=== PATIENT | female | born 1940 | race Caucasian/White ===

== ENCOUNTER 2019-11-01 07:44 | Outpatient (CLI) | payer OTHER, MEDICAID, SELFPAY ==
--- NOTE | ~2019-11-01 | CT_ITS ---
EXAMINATION: CT abdomen pelvis wo/w con DATE: 11/01/2019 08:55 INDICATION: Gross hematuria TECHNIQUE: Computed tomography (CT) of the abdomen and pelvis was performed without intravenous contr ast. CT of the abdomen and pelvis was then performed with a total of 130 mL Omnipaque 350 intravenous contrast using a double-bolus technique for simultaneous opacification of the renal parenchyma and r enal collecting system. The dose-length product (DLP) was 3080.75 mGy-cm. Automated exposure control and iterative reconstruction technique were employed. COMPARISON: None FINDINGS: The lung bases are clear. The heart size is normal. Calcified coronary artery atheroscleros is is noted. Punctate calcifications in an otherwise normal spleen likely represent healed granulomat ous disease. The gallbladder is surgically absent. There is a 1.4 x 0.7 cm hypoattenuating lesion of the right hepatic lobe contiguous with a cleft that extends to the liver capsule. The pancreas and ad renal glands are normal. There are no stones in the kidneys, ureters, or bladder. There is an 11 mm c yst of the left kidney. The right kidney is unremarkable. A 2.9 x 2.5 cm soft tissue mass is present in the left posterolateral bladder. No pathologically enlarged abdominal or pelvic lymph nodes are id entified. There is no free intraperitoneal gas or evidence of bowel obstruction. Colonic diverticulos is is present without evidence of diverticulitis. There is severe lumbar spondylosis. There is calcified atherosclerosis of the aorta and many of the other arteries. IMPRESSION: 1. 2.9 cm mass of the left posterolateral bladder wall, consistent with urothelial carcinoma. Direct visualization is recommended. 2. Indeterminate lesion of the right hepatic lobe. Further evaluation with MRI without and with contr ast is recommended. Reviewed, dictated and finalized at location A. IMPRESSION: 1. 2.9 cm mass of the left posterolateral bladder wall, consistent with urothel ial carcinoma. Direct visualization is recommended. 2. Indeterminate lesion of the right hepatic lobe. Further evaluation with MRI without and with contrast is recommended.
--- NOTE | ~2019-11-01 | XR_ITS ---
EXAMINATION: XR abdomen w oblique INDICATION: Gross hematuria TECHNIQUE: AP and bilateral oblique views of the abdomen are obtained COMPARISON: CT from today FINDINGS: Contrast from earlier CT partially opacifies the urinary tract. There is a filling defect i n the left bladder, consistent with the bladder mass identified on CT. There is no hydronephrosis or hydroureter. The bowel gas pattern is normal. Cholecystectomy clips are noted. There is mild hip oste oarthritis. Severe lumbar spondylosis is noted. IMPRESSION: 1. Filling defect of the left bladder, consistent with bladder mass and suspicious for urothelial car cinoma. Reviewed, dictated and finalized at location A. IMPRESSION: 1. Filling defect of the left bladder, consistent with bladder mass and suspici ous for urothelial carcinoma.
[2019-11-01 08:33] LABS: Estimated Glomerular Filt Rate 53
== END 2019-11-01 07:45 | disposition home or self-care (01) ==
PROVIDERS: Visit Provider Urology
DX: R31.0 Gross hematuria (principal); R93.41 Abnormal radiologic findings on diagnostic imaging of renal pelvis, ureter, or bladder; K76.9 Liver disease, unspecified
CPT/HCPCS: 36415; 74021; 74178; Q9967

== ENCOUNTER 2019-11-06 12:54 | Outpatient (CLI) | payer OTHER, SELFPAY ==
--- NOTE | 2019-11-06 12:55 | ECG_ITS ---
Measurements Intervals [place] Rate: 65 P: 71 GA: 192 QRS: -13 QRSD: 103 T: 69 QT: 423 QTc: 441 Interpretive Statements SINUS RHYTHM POOR R WAVE PROGRESSION, ANTERIOR LEADS BORDERLINE ST-T WAVE ABNORMALITY- HIGH LATERAL LEADS BORDERLINE ECG Electronically Signed On 11-06-2019 13:47:32 CDT by Cheikh Elmore D.O.
[2019-11-06 13:18] LABS: Basophils Percent Auto 0.2 % (0.2-1.2); Eosinophils Absolute Auto 0.2 K/mm3 (0-0.3); Eosinophils Percent Auto 1.9 % (0-4.4); Hematocrit 41.7 % (37.0-47.0); Hemoglobin 13.5 g/dL (12.0-15.0); Immature Granulocyte Absolute 0.07 K/mm3 (0.00-0.031); Immature Granulocyte Percent A 0.5 % (0-0.5); Lymphocytes Absolute Auto 2.91 K/mm3 (0.9-3.2); Lymphocytes Percent Auto 22.7 % (18.3-44.2); Mean Corpuscular HGB Conc 32.4 g/dl (32-36); Mean Corpuscular Hemoglobin 28.9 pg (26-34); Mean Corpuscular Volume 89.3 fl (80-100); Mean Platelet Volume 11.4 fl (7.4-10.4); Monocytes Absolute Auto 0.9 K/mm3 (0.1-0.6); Monocytes Percent Auto 6.6 % (2.6-8.5); Neutrophils Absolute Auto 8.7 K/mm3 (1.3-6.7); Neutrophils Percent Auto 68.1 % (45.5-73.1); Platelet Count Result 222 k/mm3 (150-375); Red Blood Count 4.67 M/mm3 (4.2-5.4); Red Cell Distribution Width 13.2 % (11.5-14.5); White Blood Count 12.8 K/mm3 (4.5-10.0)
[2019-11-06 13:27] LABS: INR 0.9; Prothrombin Time 12.3 Seconds (11.1-14.7)
[2019-11-06 13:28] LABS: Partial Thromboplastin Time 28.3 SECONDS (22.3-36.8)
[2019-11-06 13:31] LABS: Anion Gap 9 mmol/L (8-16); Blood Urea Nitrogen 21 mg/dL (7-17); Calcium 9.3 mg/dL (8.4-10.2); Carbon Dioxide 32 mmol/L (22-30); Chloride 100 mmol/L (98-107); Estimated Glomerular Filt Rate 48; Glucose 241 mg/dL (65-105); Potassium 4.1 mmol/L (3.4-5.0); Sodium 141 mmol/L (137-145)
== END 2019-11-06 12:55 | disposition home or self-care (01) ==
PROVIDERS: PCP Internal Medicine; Visit Provider Urology
DX: Z01.818 Encounter for other preprocedural examination (principal); D49.4 Neoplasm of unspecified behavior of bladder; I10 Essential (primary) hypertension
CPT/HCPCS: 36415; 80048; 85025; 85610; 85730; 87086; 87088; 93005

== ENCOUNTER 2019-11-11 01:50 | Outpatient (CLI) | payer OTHER, SELFPAY ==
[2019-11-11 19:29] LABS: SARS-CoV-2 RNA PCR Negative
== END 2019-11-11 01:51 | disposition home or self-care (01) ==
LOC: ANHCOVIDDT 01:50
PROVIDERS: Visit Provider Urology
DX: Z01.812 Encounter for preprocedural laboratory examination (principal); Z11.59 Encounter for screening for other viral diseases
CPT/HCPCS: 87635; C9803; U0003

== ENCOUNTER 2019-11-14 01:08 | Day surgery (SDC) | payer OTHER, MEDICAID, SELFPAY ==
[2019-11-03 11:02] VITALS: BMI 51.5
[2019-11-14] VITALS (8 sets, daily range): BP systolic 134–159; BP diastolic 53–73; PULSE 65–69; RESP 10–20; TEMP 36.6–36.8; O2SAT 94–99
[2019-11-14] MEDS: LACTATED RINGERS 1,000 ML 30 ML IV CONT (12:30)
--- NOTE | 2019-11-14 12:37 | WPDANESEPPF ---
Anes - Initial Pre Proc Eval Procedure: Operation Date: 11/14/19 13:00 Proposed Procedures p Transurethral Resection Bladder Tumor - Nahum Pozo MD Date/Time: 11/14/19 12:37 Surgeon: Nahum Pozo MD Pre Op Diagnosis: Bladder Tumor Patient Data Age: 79 Gender: F Height: 5 ft 3 in Weight: 131.95 kg Allergies Allergy/AdvReac Type Severity Reaction Status Date / Time codeine Allergy Nausea and Verified 11/03/19 10:52 Vomiting Home Medications Medication Instructions Recorded Confirmed Type amlodipine 2.5 mg PO QAM 11/03/19 11/03/19 History aspirin 81 mg PO QAM 11/03/19 11/03/19 History atorvastatin 80 mg PO HS 11/03/19 11/03/19 History budesonide-formoterol [Symbicort] 2 puff INHALATION PRN PRN 11/03/19 11/03/19 History clopidogrel 75 mg PO HS 11/03/19 11/03/19 History furosemide 40 mg PO QAM 11/03/19 11/03/19 History insulin lispro protamin-lispro 75 ml SUBCUT QPM 11/03/19 11/03/19 History insulin lispro protamin-lispro 65 ml SUBCUT QAM 11/03/19 11/03/19 History [Humalog Mix 75-25 KwikPen] lisinopril 10 mg PO QAM 11/03/19 11/03/19 History metoprolol tartrate 100 mg PO QAM 11/03/19 11/03/19 History semaglutide [Ozempic] 0.25 mg SUBCUT WEEKLY 11/03/19 11/03/19 History sertraline 100 mg PO QAM 11/03/19 11/03/19 History Patient hx anesthesia problems: none Family hx anesthesia problems: none PMFSH Past Medical History Medical History Anxiety CAD (coronary artery disease) COPD (chronic obstructive pulmonary disease) Diabetes Hyperlipidemia Hypertension NIDA (obstructive sleep apnea) Super obesity Surgical History Surgical History Stented coronary artery Social History Social History Smoking packs per day: 1 Smoking cigarettes per day: 20.0 Years smoked: 20 Smoking pack-years: 20.00 Smoking status: Former smoker Tobacco type: cigarettes Second hand tobacco smoke exposure: No Smoking end date: 03/15/83 Living arrangements: with family Spiritual care concerns: No Anes - Eval Final PreProcedure Day of Procedure 11/14/19 12:37 Patient weight: super morbidly obese Heart: regular rate and rhythm Lungs: decreased breath sounds Airway: Mallampati scale class II Neurological: other (alert) Last oral intake: >/= 8 hours ASA classification: III Emergent: no Anesthetic plan: proceed Anesthesia type and monitoring: general LMA and standard monitoring Informed Consent: The patient's anesthetic plan and its attendant risks and benefits were discussed with the patient/family/POA. Questions were solicited and answers provided to the satisfaction of the patient/family/POA.
[2019-11-14 12:40] LABS: Glucose Point of Care 85 (65-105)
--- NOTE | 2019-11-14 14:19 | WPDHPUPDATE1 ---
History and Physical Update Update Date/Time: 11/14/19 14:19 History and Physical has been reviewed, including an updated exam of the patient. There are NO changes in the patient's condition. Risks, benefits, and alternatives have been discussed and questions answered. Patient agrees to proceed with procedure.
[2019-11-14] MEDS: ceFAZolin 3 GM/D5W 100 ML 100 ML IVPB (14:39)
[2019-11-14] MEDS: LIDOCAINE HCL 2% GEL UROJET 10 ML PKG MUCOUS MEM (14:54)
--- NOTE | 2019-11-14 15:34 | PM.PROC ---
Procedure Note - Detailed Date of procedure: 11/14/19 Pre-op diagnosis: Bladder Tumor Post-op diagnosis: same (Large bladder tumor 5 cm area) Procedure performed: transurethral resection of bladder tumor Description of procedure: patient is taken to the operative suite cup was identified. Once anesthesia was obtained she was placed in the dorsal lithotomy position and prepped and draped usual sterile fashion. A 24 Uzbek resectoscope sheath was inserted the bladder. She has a fairly large tumor close to 5 cm on the floor just lateral to the left ureteral orifice. We went ahead resected the tumor and then sent the bases a separate specimen. We fulgurated the base. There was good hemostasis. 2% viscous lidocaine was inserted into the urethra. An 18 Uzbek 3 was placed with continuous bladder irrigation. This will be weaned off in recovery room and she will be discharged home with Genao catheter and had that removed on Wednesday for urine is clear. Anesthesia: GLMA Surgeon: Nahum Pozo MD Drains: Yes Packing: No Pathology: yes Complications: No immediate complications Condition: stable Disposition: PACU
[2019-11-14 15:45] LABS: Glucose Point of Care 101 (65-105)
== END 2019-11-14 17:40 | disposition home or self-care (01) ==
PROVIDERS: PCP Internal Medicine; Visit Provider Urology
PROC: 0TBB8ZZ Excision of Bladder, Via Natural or Artificial Opening Endoscopic (ICD-10-PCS; CPT 52240; principal; 2019-11-14 13:00)
DX: C67.9 Malignant neoplasm of bladder, unspecified (principal); E11.9 Type 2 diabetes mellitus without complications; Z79.4 Long term (current) use of insulin; I10 Essential (primary) hypertension; J44.9 Chronic obstructive pulmonary disease, unspecified; E78.5 Hyperlipidemia, unspecified; G47.33 Obstructive sleep apnea (adult) (pediatric); E66.01 Morbid (severe) obesity due to excess calories; Z68.43 Body mass index [BMI] 50.0-59.9, adult; I25.10 Atherosclerotic heart disease of native coronary artery without angina pectoris; Z95.5 Presence of coronary angioplasty implant and graft; F41.9 Anxiety disorder, unspecified; F17.210 Nicotine dependence, cigarettes, uncomplicated; Z79.82 Long term (current) use of aspirin; Z79.02 Long term (current) use of antithrombotics/antiplatelets; Z79.899 Other long term (current) drug therapy
CPT/HCPCS: 52240; 88305; A9270; J0360; J0690; J2250; J2370; J2405; J2704; J3010; J7120

== ENCOUNTER 2022-09-14 12:07 | Inpatient (IN) | payer MEDICARE, MEDICAID, SELFPAY ==
[2022-09-14] VITALS (9 sets, daily range): BP systolic 149–168; BP diastolic 48–69; PULSE 68–81; RESP 13–26; TEMP 36.2–37.2; O2SAT 90–95; BMI 51.8
--- NOTE | ~2022-09-14 | US_ITS ---
US venous doppler [facility] DATE: 09/14/2022 19:36 INDICATION: Edema of the lower extremities TECHNIQUE: Real-time and color flow imaging and Doppler analysis of the veins of the lower extremitie s COMPARISON: None FINDINGS: The greater saphenous veins are patent. There is spontaneous and phasic flow and normal aug mentation and color flow signal and normal compression of the deep veins of both lower extremities. IMPRESSION: No evidence of deep venous thrombosis of the lower extremities Reviewed, dictated and finalized at Location A. Reviewed, dictated and finalized at location A.
--- NOTE | ~2022-09-14 | XR_ITS ---
EXAMINATION: XR chest 1V portable DATE: 09/14/2022 12:38 INDICATION: Shortness of breath TECHNIQUE: frontal view of the chest was obtained. COMPARISON: None FINDINGS: Pulmonary vascular congestion. Mild opacities in bilateral lower lung zones, left greater than right. Blunting at costophrenic angles consistent with small bilateral pleural effusions. No pneumothorax. The cardiomediastinal silhouette is within normal limits for AP technique. Mild lower thoracic dextro curvature. IMPRESSION: 1. Small bilateral pleural effusions with mild opacities in bilateral lower lung zones which could re present mild pulmonary edema, atelectasis or pneumonia. Reviewed, dictated and finalized at location B. IMPRESSION: 1. Small bilateral pleural effusions with mild opacities in bilateral lower tiffanie g zones which could represent mild pulmonary edema, atelectasis or pneumonia.
--- NOTE | 2022-09-14 12:15 | ECG_ITS ---
Measurements Intervals [place] Rate: 73 P: 109 WV: 158 QRS: 17 QRSD: 94 T: 89 QT: 420 QTc: 466 Interpretive Statements SINUS RHYTHM WITH SINUS ARRHYTHMIA ATRIAL PREMATURE COMPLEXES DELAYED PRECORDIAL R/S TRANSITION LOW QRS VOLTAGE IN PRECORDIAL LEADS BORDERLINE T WAVE ABNORMALITY- HIGH LATERAL LEADS BASELINE ARTIFACT- I, II, III, AVR, AVL, AVF, V1-V2 BORDERLINE ECG COMPARED TO ECG 11/06/2019 13:30:35 SINUS ARRHYTHMIA NOW PRESENT Electronically Signed On 09-14-2022 13:57:35 CDT by Cheikh Elmore D.O.
[2022-09-14 12:29] LABS: Basophils Percent Auto 0.4 % (0.2-1.2); Eosinophils Absolute Auto 0.2 K/mm3 (0-0.3); Eosinophils Percent Auto 1.9 % (0-4.4); Hematocrit 29.4 % (37.0-47.0); Hemoglobin 9.8 g/dL (12.0-15.0); Immature Granulocyte Absolute 0.06 K/mm3 (0.00-0.031); Immature Granulocyte Percent A 0.5 % (0-0.5); Lymphocytes Absolute Auto 1.33 K/mm3 (0.9-3.2); Lymphocytes Percent Auto 11.8 % (18.3-44.2); Mean Corpuscular HGB Conc 33.3 g/dl (32-36); Mean Corpuscular Hemoglobin 29.2 pg (26-34); Mean Corpuscular Volume 87.5 fl (80-100); Mean Platelet Volume 11.2 fl (7.4-10.4); Monocytes Absolute Auto 0.7 K/mm3 (0.1-0.6); Monocytes Percent Auto 6.4 % (2.6-8.5); Neutrophils Absolute Auto 8.9 K/mm3 (1.3-6.7); Platelet Count Result 188 k/mm3 (150-375); Red Blood Count 3.36 M/mm3 (4.2-5.4); Red Cell Distribution Width 14.2 % (11.5-14.5); White Blood Count 11.3 K/mm3 (4.5-10.0)
[2022-09-14 12:44] LABS: Alanine Aminotransferase 26 U/L (6-35); Albumin Level 3.8 g/dL (3.5-5.1); Alkaline Phosphatase 197 U/L (38-126); Anion Gap 3 mmol/L (8-16); Aspartate Amino Transferase 26 U/L (14-36); Bilirubin,Total 1.2 mg/dL (0.2-1.3); Blood Urea Nitrogen 18 mg/dL (7-17); Calcium 8.5 mg/dL (8.4-10.2); Carbon Dioxide 34 mmol/L (22-30); Chloride 102 mmol/L (98-107); Estimated CRCL calculation 63 ml/min; Estimated Glomerular Filt Rate > 60; Glucose 192 mg/dL (65-110); Potassium 3.5 mmol/L (3.4-5.0); Sodium 139 mmol/L (137-145)
[2022-09-14 12:46] LABS: Prothrombin Time 13.4 Seconds (11.1-14.7)
[2022-09-14 12:47] LABS: Partial Thromboplastin Time 32.3 SECONDS (22.3-36.8)
[2022-09-14 12:54] LABS: NT Pro B Type Natriuretic Pept 960 pg/mL (19.9-100); Troponin I < 0.012 ng/mL (0.000-0.034)
--- NOTE | 2022-09-14 13:22 | ED.EXTPRO ---
HPI - Extremity Problem General Chief complaint: Extremity Problem,Nontraumatic Stated complaint: BLE swelling and dyspnea Time Seen by Provider: 09/14/22 12:37 History of Present Illness HPI Narrative: Patient is an 82-year-old female with a history of diabetes, hypertension, CHF presenting with shortness of breath and leg swelling. Patient is a resident at a nursing facility. She states that she is supposed to take Lasix every day but they have only been giving it to her every other day. States that she has had increasingly swollen legs and worsening shortness of breath. She reports worsening orthopnea. States she was unable to sleep last night due to the orthopnea. She had some palpitations yesterday but no chest pain or lightheadedness. No fevers, cough, numbness or weakness, abdominal pain, vomiting, diarrhea, dysuria. Related Data Home Medications Medication Instructions Recorded Confirmed amlodipine 5 mg tablet 10 mg PO QAM 11/03/19 09/14/22 aspirin 81 mg tablet,delayed 81 mg PO QAM 11/03/19 09/14/22 release atorvastatin 80 mg tablet 80 mg PO HS 11/03/19 09/14/22 budesonide-formoterol HFA 160 2 puff inhalation PRN PRN 11/03/19 09/14/22 mcg-4.5 mcg/actuation aerosol Shortness Of Breath inhaler (Symbicort) clopidogrel 75 mg tablet 75 mg PO HS 11/03/19 09/14/22 furosemide 20 mg tablet 20 mg PO QAM 11/03/19 09/14/22 sertraline 100 mg tablet 100 mg PO QAM 11/03/19 09/14/22 albuterol sulfate 90 mcg/actuation 90 mcg inhalation Q4H PRN 09/14/22 09/14/22 aerosol inhaler Shortness Of Breath Or Wheezing amlodipine 10 mg tablet 10 mg PO DAILY 09/14/22 09/14/22 bisacodyl 5 mg tablet,delayed 10 mg PO DAILY PRN Constipation 09/14/22 09/14/22 release (Dulcolax (bisacodyl)) budesonide-formoterol HFA 160 2 puff inhalation BID 09/14/22 09/14/22 mcg-4.5 mcg/actuation aerosol inhaler carvedilol 6.25 mg tablet 6.25 mg PO BID 09/14/22 09/14/22 ezetimibe 10 mg tablet 10 mg DAILY 09/14/22 09/14/22 fluticasone propionate 50 50 mcg intranasal DAILY 09/14/22 09/14/22 mcg/actuation nasal spray,suspension insulin aspart U-100 100 unit/mL 12 unit subcut TID 09/14/22 09/14/22 (3 mL) subcutaneous pen (Novolog FlexPen U-100 Insulin aspart) insulin glargine-yfgn 100 unit/mL 30 unit subcut HS 09/14/22 09/14/22 subcutaneous solution isosorbide mononitrate 30 mg 30 mg PO DAILY 09/14/22 09/14/22 tablet,extended release 24 hr lidocaine 5 % topical patch 1 patch transdermal Q12H 09/14/22 09/14/22 loratadine 10 mg tablet 10 mg PO DAILY PRN Allergy Symptoms 09/14/22 09/14/22 meclizine 12.5 mg tablet 12.5 mg PO TID 09/14/22 09/14/22 methocarbamol 500 mg tablet 500 mg PO QID PRN Muscle Spasm 09/14/22 09/14/22 ondansetron 4 mg disintegrating 4 mg PO Q8H PRN Nausea 09/14/22 09/14/22 tablet oxybutynin chloride 5 mg tablet 5 mg PO DAILY 09/14/22 09/14/22 pantoprazole 40 mg tablet,delayed 40 mg PO BID 09/14/22 09/14/22 release tramadol 50 mg tablet 50 mg PO DAILY PRN Pain 09/14/22 09/14/22 Allergies Allergy/AdvReac Type Severity Reaction Status Date / Time codeine Allergy Nausea and Verified 09/14/22 12:15 Vomiting semaglutide [From Ozempic] Allergy Nausea and Verified 09/14/22 17:06 Vomiting gabapentin AdvReac Hallucinati Verified 09/14/22 17:06 ng Review of Systems Review of Systems: All systems reviewed & are unremarkable except as noted in HPI and below PMFSH Past Medical History Medical History (Updated 09/14/22 @ 21:38 by Orin Segura MD) Anxiety Arthritis Bladder cancer (11/2019) Status post TURBT with pathology showing superficial papillary urothelial carcinoma, noninvasive and low-grade. Chronic back pain Chronic obstructive pulmonary disease Coronary artery disease Degenerative disc disease Depression with anxiety Hyperlipidemia Hypertension Insulin dependent type 2 diabetes mellitus Obstructive sleep apnea Intolerant to PAP therapy. Spinal stenosis Super obesity Surgical
[2022-09-14] MEDS: FUROSEMIDE INJ 40 MG/4 ML VIAL IV PUSH (13:37)
--- NOTE | 2022-09-14 15:50 | PM.IMHP ---
H&P: HPI History of Present Illness Date/Time: 09/14/22 17:15 Chief Complaint: Shortness of breath and leg swelling. Narrative: This is a very pleasant 82-year-old female with congestive heart failure, coronary artery disease, hypertension, hyperlipidemia, untreated obstructive sleep apnea, insulin-dependent diabetes mellitus, morbid obesity, and chronic obstructive pulmonary disease who presented to the emergency department via EMS for evaluation of shortness of breath and leg swelling. The patient provides the following history. She has been [facility] for approximately 3 months time. They unfortunately do not offer special diets and that she has not been on a diabetic or heart healthy diet. She also realized recently that she has not been getting her Lasix on a daily basis and instead she has been getting every other day. Over the last several weeks she has noticed increasing lower extremity edema which is now opted abdomen, orthopnea, and increasing dyspnea on minimal exertion. She has increasing difficulty even transferring to her motorized scooter due to increasing weight and swelling. She denies fever, chills, sweats, chest pain, pleuritic pain, palpitations, racing heart, cough, nausea, vomiting, and sweats. Workup in the ED is consistent with volume overload and she is being admitted in this setting for diuresis. Review of Systems Review of Systems: Twelve systems were reviewed and are negative except for as per HPI. [facility] Past Medical History Medical History Anxiety Arthritis Bladder cancer (11/2019) Status post TURBT with pathology showing superficial papillary urothelial carcinoma, noninvasive and low-grade. Chronic back pain Chronic obstructive pulmonary disease Coronary artery disease Degenerative disc disease Depression with anxiety Hyperlipidemia Hypertension Insulin dependent type 2 diabetes mellitus Obstructive sleep apnea Intolerant to PAP therapy. Spinal stenosis Super obesity Surgical History Surgical History (Updated 09/14/22 @ 15:58 by Magaly Sandra PA-C) History of appendectomy History of bilateral cataract extraction History of bladder suspension procedure (11/2019) History of cholecystectomy History of coronary artery stent placement (09/2018) History of elbow surgery History of hemorrhoidectomy History of hysterectomy (1969) History of knee surgery History of transurethral resection of bladder tumor (TURBT) Family History Family History Mother Cerebrovascular accident Social History Social History (Updated 09/14/22 @ 15:59 by Magaly Sandra PA-C) Social History: Surrogate medical decision maker: Jocelin Cueto, daughter. Code status: Full code. Smoking packs per day: 1 Smoking cigarettes per day: 20.0 Years smoked: 20 Smoking pack-years: 20.00 Smoking status: Former smoker Tobacco type: cigarettes Second hand tobacco smoke exposure: No Smoking end date: 03/15/83 Alcohol intake: never Substance use: never Lack of Transportation: No Lack of Food: Never True Current Housing: I Have Housing Concerned About Future Housing: No Difficulty Paying Gas/Electric Bills: No Difficulty Paying for Meds: No Currently Unemployed: No Education: Don't Know Difficulty w/ Childcare or Family Care: No Additional living arrangements comments: [facility]. Spiritual care concerns: No Meds Home Medications and Allergies Home Medications Medication Instructions Recorded Confirmed Type amlodipine 5 mg tablet 10 mg PO QAM 11/03/19 09/14/22 History aspirin 81 mg tablet,delayed 81 mg PO QAM 11/03/19 09/14/22 History release atorvastatin 80 mg tablet 80 mg PO HS 11/03/19 09/14/22 History budesonide-formoterol HFA 160 2 puff inhalation PRN PRN 11/03/19 09/14/22 History mcg-4.5 mcg/actuation aerosol Short
[2022-09-14 16:38] LABS: Glucose Point of Care 177 mg/dl (65-105)
--- NOTE | 2022-09-14 16:45 | ADMGEN ---
This patient, Verna Baltazar, was admitted to 3 [facility] Surg Room 306-01. Patient/family oriented to hospital policies and general routines including ID bracelet, bed and alarms, visiting hours, pain management, procedures, bathroom and other care routines, personal items, smoking policy, room service/diet, and visiting hours. Information on how to activate the Rapid Response Team has been discussed. Patient/Family are encouraged to report perceived risks to care and to ask questions if they do not understand what they are told or what they should do. Report from Megha in ER.
[2022-09-14 16:58] LABS: Hemoglobin A1C 7.2 % (<5.7)
[2022-09-14 20:39] LABS: Glucose Point of Care 204 mg/dl (65-105)
[2022-09-14] MEDS: FUROSEMIDE INJ 40 MG/4 ML VIAL 20 MG IV PUSH (21:27)
[2022-09-14] MEDS: POTASSIUM CHLORIDE 20 MEQ ER TABLET PO (21:28)
[2022-09-14] MEDS: INSULIN ASPART (*BKC) 100 UNITS/ML SUB-Q (21:30)
[2022-09-15] VITALS (16 sets, daily range): BP systolic 129–152; BP diastolic 46–60; PULSE 66–74; RESP 12–24; TEMP 35.9–37.1; O2SAT 94–98
[2022-09-15 00:38] LABS: Glucose Point of Care 156 mg/dl (65-105)
[2022-09-15] MEDS: INSULIN GLARGINE (*BKC) 100 UNITS/ML 30 UNITS SUB-Q ×2 (00:39→20:50)
[2022-09-15 05:44] LABS: Glucose Point of Care 139 mg/dl (65-105)
[2022-09-15] MEDS: carvediloL 6.25 MG TABLET PO ×3 (05:46→20:35)
[2022-09-15] MEDS: CLOPIDOGREL BISULFATE 75 MG TABLET PO ×2 (05:46→20:37)
[2022-09-15 06:26] LABS: Hematocrit 28.1 % (37.0-47.0); Hemoglobin 9.1 g/dL (12.0-15.0); Mean Corpuscular HGB Conc 32.4 g/dl (32-36); Mean Corpuscular Hemoglobin 28.4 pg (26-34); Mean Corpuscular Volume 87.8 fl (80-100); Platelet Count Result 178 k/mm3 (150-375); Red Cell Distribution Width 13.9 % (11.5-14.5); White Blood Count 9.7 K/mm3 (4.5-10.0)
[2022-09-15 06:42] LABS: Anion Gap 5 mmol/L (8-16); Blood Urea Nitrogen 16 mg/dL (7-17); Calcium 8.3 mg/dL (8.4-10.2); Carbon Dioxide 37 mmol/L (22-30); Chloride 99 mmol/L (98-107); Estimated CRCL calculation 55 ml/min; Estimated Glomerular Filt Rate 60; Glucose 135 mg/dL (65-110); Magnesium 1.6 mg/dL (1.6-2.3); Potassium 3.1 mmol/L (3.4-5.0); Sodium 141 mmol/L (137-145)
[2022-09-15 07:15] LABS: Thyroid Stimulating Hormone Reflex 0.785 uIU/mL (0.465-4.68)
[2022-09-15] MEDS: FLUTICASONE/SALMETEROL 115-21 MCG INHALER 1 PUFF 2 PUFF INHALATION ×2 (08:00→20:59)
[2022-09-15] MEDS: INSULIN ASPART (*BKC) 100 UNITS/ML 12 UNITS SUB-Q ×2 (09:11→17:19)
[2022-09-15] MEDS: FUROSEMIDE INJ 40 MG/4 ML VIAL IV PUSH ×2 (09:12→17:07)
[2022-09-15] MEDS: FLUTICASONE PROPIONATE 0.05% NA SPR 16 GM BTL (*BKC) 2 SPRAY NASAL (09:12)
[2022-09-15] MEDS: ISOSORBIDE MONONITRATE 30 MG TAB.ER.24H PO (09:13)
[2022-09-15] MEDS: ASPIRIN 81 MG ENTERIC TABLET PO (09:13)
[2022-09-15] MEDS: SERTRALINE HCL 50 MG TABLET 100 MG PO (09:13)
[2022-09-15] MEDS: EZETIMIBE 10 MG TABLET BY MOUTH (09:13)
[2022-09-15] MEDS: oxyBUTYnin CHLORIDE 5 MG TABLET PO (09:13)
[2022-09-15] MEDS: PANTOPRAZOLE 40 MG TABLET PO ×2 (09:13→17:07)
[2022-09-15] MEDS: amLODIPine BESYLATE 5 MG TABLET 10 MG PO (09:14)
--- NOTE | 2022-09-15 09:23 | PM.IMPN ---
Progress Note: A&P Assessment and Plan (1) Acute on chronic congestive heart failure: Code(s): I50.9 - Heart failure, unspecified Status: Acute (2) Coronary artery disease: Code(s): I25.10 - Atherosclerotic heart disease of [place] coronary artery without angina pectoris Status: Acute (3) Insulin dependent type 2 diabetes mellitus: Code(s): E11.9 - Type 2 diabetes mellitus without complications; Z79.4 - longterm (current) use of insulin Status: Acute (4) Obstructive sleep apnea: Code(s): G47.33 - Obstructive sleep apnea (adult) (pediatric) Status: Acute (5) Hypertension: Code(s): I10 - Essential (primary) hypertension Status: Acute (6) Hyperlipidemia: Code(s): E78.5 - Hyperlipidemia, unspecified Status: Acute (7) Chronic obstructive pulmonary disease: Code(s): J44.9 - Chronic obstructive pulmonary disease, unspecified Status: Acute Plan The patient presented to the emergency department for evaluation of increasing lower extremity edema, shortness of breath with exertion, and orthopnea as per HPI. Labs, imaging, EKG, and all reports were personally reviewed. Chest x-ray shows small pleural effusions with mild pulmonary edema however proBNP is not drastically elevated at 960. She has significant lower extremity edema and she will be diuresed for presumed acute on chronic diastolic congestive heart failure. Continue furosemide 40 mg IV b.i.d. with close monitoring of volume status, renal function, and electrolytes. Lower extremity venous Doppler ultrasounds ordered to rule out DVT. Echocardiogram ordered as well; I do not see that she has had one in our system at least. She likely decompensated due to a combination of untreated sleep apnea, dietary indiscretion as she is not offered a special diet at the detention, and due to the fact that she has not been receiving her furosemide as directed. She has not had any chest pain. Pulmonary embolism seems unlikely. Venous Doppler ultrasounds were negative for DVT. EKG does not show any acute ST segment changes. Blood pressures have been a bit high and should improve with diuresis. Continue basal insulin. Initiate sliding scale insulin, Accu-Cheks, and hypoglycemic protocol. Check hemoglobin A1c. No acute issues with regards to her COPD. Home medications will be reviewed and resumed as appropriate. 09/15/2022: 82-year-old presented with shortness of breath and leg swelling. [facility] resident. On Lasix every other day. Increasing swelling and shortness of breath over the pastSeveral weeks. Unable to sleep due to orthopnea. Palpitation positive. No chest pain. No fever cough. Coronary artery disease status post stent placement 2018, type 2 diabetes, NIDA intolerant to CPAP therapy, spinal stenosis, anxiety depression, degenerative disc disease with chronic back pain, COPD, bladder cancer status post TURBT. EKG with normal sinus rhythm nonspecific ST-T changes. Chest x-ray with small bilateral pleural effusion with mild opacities in bilateral lower lung zones which could represent mild pulmonary edema atelectasis or pneumonia. BNP 960. Negative troponin. A1c is 7.2. Started on IV diuresis. Not hypoxic on presentation. Treated for acute on chronic diastolic congestive heart failure with IV Lasix. Echo 09/15/2022 EF 65-70% increased left ventricular wall thickness. Lower extremity Doppler to rule out DVT negative for DVT. PE less likely. Blood pressure not well controlled. COPD resume home medication not in acute exacerbation. Good diuresis with current regimen. Monitor weight. TSH normal. Had magnesium and potassium supplementation on insulin at home. Anemia no obvious signs of bleeding. Could be related to anemia chronic disease with underlying heart failure. Will order further anemia workup Subjective Date/time seen: 09/15/22 09:23 Interval history: 82-year-old presented with shortness of breath and
[2022-09-15 09:55] LABS: Immature Reticulocyte Fraction 25.2 % (3.0-15.9); Reticulocyte Hemoglobin Conten 30.1 pg (28.2-35.7); Reticulocyte Percent 2.52 % (0.7-4.3); Reticulocytes Absolute 0.08 M/mm3 (0.02-0.1)
[2022-09-15 10:07] LABS: Iron 29 ug/dL (37-170)
[2022-09-15 10:16] LABS: Percent Iron Saturation 11 % (20-50)
[2022-09-15] MEDS: PERFLUTREN LIPID MICROSPHERES 1.5 ML VIAL DILUTED TO 10 ML TOTAL VOLUME IV PUSH (11:05)
[2022-09-15 11:13] LABS: Glucose Point of Care 112 mg/dl (65-105)
[2022-09-15 11:16] LABS: Folic Acid 8.2 ng/mL (2.76->20)
--- NOTE | 2022-09-15 11:42 | IVDEFINITY ---
Prior to administration of IV Definity the patient was educated on the risks and benefits of the imaging enhancing agent including potential adverse side effects. The patient verbalized understanding. Allergies were verified. No exclusion criteria were identified and at least one of the following inclusion criteria were met: 1) physician request, 2) patient technically difficult to image (per the [place] [employer] guidelines of two or more segments not discernable within the apical view), or 3) questionable left ventricular function. ?
[2022-09-15] MEDS: POTASSIUM CHLORIDE 20 MEQ ER TABLET 40 MEQ PO (11:51)
[2022-09-15] MEDS: MAGNESIUM SULF 2 GM/WATER 50ML 2 GM/50 ML BAG IVPB (11:51)
--- NOTE | 2022-09-15 15:45 | PC.NURSE ---
Pt has been resting in bed. Pt did not require any sliding scale this shift. Pt afternoon dose held due to lower blood sugar. Pt has reported no pain and expresses no needs at this time. Pt did get magnesium and potassium this morning. Pt tolerated well. Will continue to monitor.
--- NOTE | 2022-09-15 16:00 | ECHO_ITS ---
Patient Info Name: Veran Baltazar Age: 82 years : 1940 Gender: Female Ht: 63 in Wt: 294 lbs BSA: 2.52 m2 HR: 73 bpm BP: 152 / 60 mmHg Heart Rhythm: Sinus Rhythm Technical Quality: Fair Exam Date: 09/15/2022 10:29 AM Exam Location: [facility] Pulmonary Patient Status: Inpatient Admit Date: 09/14/2022 Staff Ordering Physician: Magaly Sandra PA-C Denture Waxer: Sophia Skinner RDCS Attending Provider: Lamont Cazares MD Referring Physician: Boaz GENAO; Exam Type: CA echo dop color flow w con Study Info Indications - chf Complete two-dimensional, color flow and Doppler transthoracic echocardiogram is performed with contrast to opacify the left ventricle and to improve the deliniation of the left ventricle endocardial borders. Contrast/Agitated Saline Contrast/Ag. Saline: Definity Amount: 2.00 ml Administered By: Sophia Skinner RDCS Existing IV Access: Yes IV Access Condition: patent with no signs of infiltration Summary 1. Left ventricular chamber dimension is normal. 2. Left ventricular systolic function is normal, estimated at 65-70%. 3. There is mildly increased left ventricular wall thickness. 4. The left ventricular diastolic function is abnormal. 5. Left atrial chamber dimension is mildly enlarged. 6. There is mild tricuspid valve regurgitation. Left Ventricle Left ventricular chamber dimension is normal. Left ventricular systolic function is normal, estimated at 65-70%. There is mildly increased left ventricular wall thickness. The left ventricular diastolic function is abnormal. Right Ventricle Right ventricular chamber dimension is normal. Right ventricular systolic function is normal. Left Atria Left atrial chamber dimension is mildly enlarged. Right Atria Right atrial chamber dimension is normal. Atrial Septum Intact interatrial septum visualized by color flow imaging. Aortic Valve The aortic valve is trileaflet. There is mild aortic valve sclerosis. There is no aortic valve stenosis. There is trace aortic valve regurgitation. Pulmonic Valve The pulmonic valve is normal. There is no pulmonic valve stenosis. There is trace pulmonic regurgitation. Mitral Valve The mitral valve has thickened leaflets. There is no mitral valve stenosis. There is trace mitral valve regurgitation. Tricuspid Valve The tricuspid valve leaflets are normal. There is no significant tricuspid valve stenosis. There is mild tricuspid valve regurgitation. Pericardium/Pleural The pericardium appears normal. There is small pericardial effusion. Inferior Vena Cava Dilated inferior vena cava with <50% collapse upon inspiration consistent with elevated right atrial pressure, 10 mmHg. Aorta The aortic root size at the sinus of Valsalva is normal. There is mild aortic atherosclerosis. Left Ventricular Outflow Tract Name Value Normal LVOT 2D LVOT Diameter 1.95 cm LVOT Doppler LVOT Peak Gradient 3 mmHg LVOT Mean Gradient 1 mmHg LVOT VTI 17.25 cm LVOT VTI/AV VTI Ratio 0.58 LVOT Stroke Volume
[2022-09-15 16:18] LABS: IFOB Positive Control Positive; Immunochemical Fecal Occult Bl Negative (N)
[2022-09-15 17:20] LABS: Glucose Point of Care 172 mg/dl (65-105)
[2022-09-15] MEDS: ATORVASTATIN 40 MG TABLET 80 MG PO (20:36)
[2022-09-15 20:52] LABS: Glucose Point of Care 159 mg/dl (65-105)
[2022-09-16] VITALS (13 sets, daily range): BP systolic 140–172; BP diastolic 59–73; PULSE 65–83; RESP 14–20; TEMP 35.9–36.1; O2SAT 91–95
[2022-09-16 00:08] LABS: Glucose Point of Care 132 mg/dl (65-105)
[2022-09-16] MEDS: ALBUTEROL SULFATE (*SP) AEROSOL 1 PUFF 2 PUFF INHALATION ×2 (02:33→13:50)
[2022-09-16 05:30] LABS: Basophils Percent Auto 0.2 % (0.2-1.2); Eosinophils Absolute Auto 0.2 K/mm3 (0-0.3); Eosinophils Percent Auto 1.8 % (0-4.4); Hematocrit 29.5 % (37.0-47.0); Hemoglobin 9.5 g/dL (12.0-15.0); Immature Granulocyte Absolute 0.07 K/mm3 (0.00-0.031); Immature Granulocyte Percent A 0.6 % (0-0.5); Lymphocytes Absolute Auto 1.26 K/mm3 (0.9-3.2); Mean Corpuscular HGB Conc 32.2 g/dl (32-36); Mean Corpuscular Hemoglobin 28.4 pg (26-34); Mean Corpuscular Volume 88.3 fl (80-100); Monocytes Percent Auto 8.3 % (2.6-8.5); Neutrophils Percent Auto 79.1 % (45.5-73.1); Platelet Count Result 202 k/mm3 (150-375); Red Blood Count 3.34 M/mm3 (4.2-5.4); Red Cell Distribution Width 14.1 % (11.5-14.5); White Blood Count 12.6 K/mm3 (4.5-10.0)
[2022-09-16 05:45] LABS: Alanine Aminotransferase 29 U/L (6-35); Albumin Level 3.6 g/dL (3.5-5.1); Alkaline Phosphatase 232 U/L (38-126); Anion Gap 4 mmol/L (8-16); Aspartate Amino Transferase 35 U/L (14-36); Bilirubin,Total 1.3 mg/dL (0.2-1.3); Blood Urea Nitrogen 17 mg/dL (7-17); Calcium 8.4 mg/dL (8.4-10.2); Carbon Dioxide 37 mmol/L (22-30); Chloride 99 mmol/L (98-107); Estimated CRCL calculation 55 ml/min; Estimated Glomerular Filt Rate 60; Glucose 154 mg/dL (65-110); Magnesium 1.8 mg/dL (1.6-2.3); Potassium 3.3 mmol/L (3.4-5.0); Sodium 140 mmol/L (137-145)
[2022-09-16 05:53] LABS: Glucose Point of Care 157 mg/dl (65-105)
[2022-09-16] MEDS: FLUTICASONE/SALMETEROL 115-21 MCG INHALER 1 PUFF 2 PUFF INHALATION ×2 (08:35→20:48)
[2022-09-16] MEDS: FUROSEMIDE INJ 40 MG/4 ML VIAL IV PUSH ×2 (08:57→17:08)
[2022-09-16] MEDS: carvediloL 6.25 MG TABLET PO ×2 (08:57→21:43)
[2022-09-16] MEDS: amLODIPine BESYLATE 5 MG TABLET 10 MG PO (08:58)
[2022-09-16] MEDS: EZETIMIBE 10 MG TABLET BY MOUTH (08:58)
[2022-09-16] MEDS: ASPIRIN 81 MG ENTERIC TABLET PO (08:58)
[2022-09-16] MEDS: oxyBUTYnin CHLORIDE 5 MG TABLET PO (08:59)
[2022-09-16] MEDS: SERTRALINE HCL 50 MG TABLET 100 MG PO (08:59)
[2022-09-16] MEDS: PANTOPRAZOLE 40 MG TABLET PO ×2 (08:59→17:09)
[2022-09-16] MEDS: ISOSORBIDE MONONITRATE 30 MG TAB.ER.24H PO (08:59)
[2022-09-16] MEDS: INSULIN ASPART (*BKC) 100 UNITS/ML 12 UNITS SUB-Q ×3 (09:05→17:14)
--- NOTE | 2022-09-16 11:03 | PM.IMPN ---
Progress Note: A&P Assessment and Plan (1) Acute on chronic congestive heart failure: Code(s): I50.9 - Heart failure, unspecified Status: Acute (2) Coronary artery disease: Code(s): I25.10 - Atherosclerotic heart disease of [place] coronary artery without angina pectoris Status: Acute (3) Insulin dependent type 2 diabetes mellitus: Code(s): E11.9 - Type 2 diabetes mellitus without complications; Z79.4 - [facility] (current) use of insulin Status: Acute (4) Obstructive sleep apnea: Code(s): G47.33 - Obstructive sleep apnea (adult) (pediatric) Status: Acute (5) Hypertension: Code(s): I10 - Essential (primary) hypertension Status: Acute (6) Hyperlipidemia: Code(s): E78.5 - Hyperlipidemia, unspecified Status: Acute (7) Chronic obstructive pulmonary disease: Code(s): J44.9 - Chronic obstructive pulmonary disease, unspecified Status: Acute (8) Multifocal pneumonia: Code(s): J18.9 - Pneumonia, unspecified organism Status: Acute Plan The patient presented to the emergency department for evaluation of increasing lower extremity edema, shortness of breath with exertion, and orthopnea as per HPI. Labs, imaging, EKG, and all reports were personally reviewed. Chest x-ray shows small pleural effusions with mild pulmonary edema however proBNP is not drastically elevated at 960. She has significant lower extremity edema and she will be diuresed for presumed acute on chronic diastolic congestive heart failure. Continue furosemide 40 mg IV b.i.d. with close monitoring of volume status, renal function, and electrolytes. Lower extremity venous Doppler ultrasounds ordered to rule out DVT. Echocardiogram ordered as well; I do not see that she has had one in our system at least. She likely decompensated due to a combination of untreated sleep apnea, dietary indiscretion as she is not offered a special diet at the senior living, and due to the fact that she has not been receiving her furosemide as directed. She has not had any chest pain. Pulmonary embolism seems unlikely. Venous Doppler ultrasounds were negative for DVT. EKG does not show any acute ST segment changes. Blood pressures have been a bit high and should improve with diuresis. Continue basal insulin. Initiate sliding scale insulin, Accu-Cheks, and hypoglycemic protocol. Check hemoglobin A1c. No acute issues with regards to her COPD. Home medications will be reviewed and resumed as appropriate. 09/15/2022: 82-year-old presented with shortness of breath and leg swelling. intermediate resident. On Lasix every other day. Increasing swelling and shortness of breath over the pastSeveral weeks. Unable to sleep due to orthopnea. Palpitation positive. No chest pain. No fever cough. Coronary artery disease status post stent placement 2019, type 2 diabetes, NIDA intolerant to CPAP therapy, spinal stenosis, anxiety depression, degenerative disc disease with chronic back pain, COPD, bladder cancer status post TURBT. EKG with normal sinus rhythm nonspecific ST-T changes. Chest x-ray with small bilateral pleural effusion with mild opacities in bilateral lower lung zones which could represent mild pulmonary edema atelectasis or pneumonia. BNP 960. Negative troponin. A1c is 7.2. Started on IV diuresis. Not hypoxic on presentation. Treated for acute on chronic diastolic congestive heart failure with IV Lasix. Echo 09/15/2022 EF 65-70% increased left ventricular wall thickness. Lower extremity Doppler to rule out DVT negative for DVT. PE less likely. Blood pressure not well controlled. COPD resume home medication not in acute exacerbation. Good diuresis with current regimen. Monitor weight. TSH normal. Had magnesium and potassium supplementation on insulin at home. Anemia no obvious signs of bleeding. Could be related to anemia chronic disease with underlying heart failure. Will order further anemia workup 09/16 [facility]
[2022-09-16 11:36] LABS: Glucose Point of Care 137 mg/dl (65-105)
[2022-09-16] MEDS: DOXYCYCLINE 100 MG/NS 100 ML 100 MG/100 ML BAG IVPB ×2 (11:49→21:46)
[2022-09-16] MEDS: FLUTICASONE PROPIONATE 0.05% NA SPR 16 GM BTL (*BKC) 2 SPRAY NASAL (11:50)
[2022-09-16] MEDS: cefTRIAXone 2 GM/NS 100 ML 2 GM/100 ML BAG IVPB (11:50)
[2022-09-16 12:07] LABS: Procalcitonin 0.1 ng/mL
[2022-09-16] MEDS: MECLIZINE HCL 12.5 MG TABLET PO ×2 (12:45→17:08)
[2022-09-16 17:14] LABS: Glucose Point of Care 124 mg/dl (65-105)
[2022-09-16] MEDS: ATORVASTATIN 40 MG TABLET 80 MG PO (21:42)
[2022-09-16] MEDS: CLOPIDOGREL BISULFATE 75 MG TABLET PO (21:44)
[2022-09-16 21:57] LABS: Glucose Point of Care 114 mg/dl (65-105)
[2022-09-16] MEDS: INSULIN GLARGINE (*BKC) 100 UNITS/ML 30 UNITS SUB-Q (22:01)
[2022-09-17] VITALS (15 sets, daily range): BP systolic 127–179; BP diastolic 58–101; PULSE 68–84; RESP 16–18; TEMP 35.5–36.1; O2SAT 88–96
[2022-09-17 00:05] LABS: Glucose Point of Care 124 mg/dl (65-105)
[2022-09-17 06:16] LABS: Basophils Percent Auto 0.2 % (0.2-1.2); Eosinophils Absolute Auto 0.2 K/mm3 (0-0.3); Eosinophils Percent Auto 2.3 % (0-4.4); Hematocrit 27.7 % (37.0-47.0); Immature Granulocyte Absolute 0.05 K/mm3 (0.00-0.031); Immature Granulocyte Percent A 0.5 % (0-0.5); Lymphocytes Absolute Auto 1.69 K/mm3 (0.9-3.2); Lymphocytes Percent Auto 16.2 % (18.3-44.2); Mean Corpuscular HGB Conc 32.5 g/dl (32-36); Mean Corpuscular Hemoglobin 28.9 pg (26-34); Mean Corpuscular Volume 89.1 fl (80-100); Mean Platelet Volume 11.6 fl (7.4-10.4); Monocytes Absolute Auto 0.8 K/mm3 (0.1-0.6); Monocytes Percent Auto 7.8 % (2.6-8.5); Neutrophils Absolute Auto 7.6 K/mm3 (1.3-6.7); Platelet Count Result 203 k/mm3 (150-375); Red Blood Count 3.11 M/mm3 (4.2-5.4); White Blood Count 10.4 K/mm3 (4.5-10.0)
[2022-09-17] MEDS: FLUTICASONE/SALMETEROL 115-21 MCG INHALER 1 PUFF 2 PUFF INHALATION ×2 (07:31→20:49)
[2022-09-17 07:58] LABS: Glucose Point of Care 130 mg/dl (65-105)
[2022-09-17 08:48] LABS: Glucose Point of Care 151 mg/dl (65-105)
[2022-09-17] MEDS: amLODIPine BESYLATE 5 MG TABLET 10 MG PO (09:02)
[2022-09-17] MEDS: INSULIN ASPART (*BKC) 100 UNITS/ML 12 UNITS SUB-Q ×3 (09:02→17:20)
[2022-09-17] MEDS: DOXYCYCLINE 100 MG/NS 100 ML 100 MG/100 ML BAG IVPB ×2 (09:03→21:23)
[2022-09-17] MEDS: ASPIRIN 81 MG ENTERIC TABLET PO (09:03)
[2022-09-17] MEDS: carvediloL 6.25 MG TABLET PO ×2 (09:03→21:14)
[2022-09-17] MEDS: MECLIZINE HCL 12.5 MG TABLET PO ×3 (09:04→17:22)
[2022-09-17] MEDS: ISOSORBIDE MONONITRATE 30 MG TAB.ER.24H PO (09:04)
[2022-09-17] MEDS: FUROSEMIDE INJ 40 MG/4 ML VIAL IV PUSH (09:04)
[2022-09-17] MEDS: PANTOPRAZOLE 40 MG TABLET PO ×2 (09:04→17:23)
[2022-09-17] MEDS: FLUTICASONE PROPIONATE 0.05% NA SPR 16 GM BTL (*BKC) 2 SPRAY NASAL (09:04)
[2022-09-17] MEDS: oxyBUTYnin CHLORIDE 5 MG TABLET PO (09:04)
[2022-09-17] MEDS: EZETIMIBE 10 MG TABLET BY MOUTH (09:04)
[2022-09-17] MEDS: SERTRALINE HCL 50 MG TABLET 100 MG PO (09:05)
--- NOTE | 2022-09-17 09:15 | PM.IMPN ---
Progress Note: A&P Assessment and Plan (1) Acute on chronic congestive heart failure: Code(s): I50.9 - Heart failure, unspecified Status: Acute (2) Coronary artery disease: Code(s): I25.10 - Atherosclerotic heart disease of [place] coronary artery without angina pectoris Status: Acute (3) Insulin dependent type 2 diabetes mellitus: Code(s): E11.9 - Type 2 diabetes mellitus without complications; Z79.4 - [facility] (current) use of insulin Status: Acute (4) Obstructive sleep apnea: Code(s): G47.33 - Obstructive sleep apnea (adult) (pediatric) Status: Acute (5) Hypertension: Code(s): I10 - Essential (primary) hypertension Status: Acute (6) Hyperlipidemia: Code(s): E78.5 - Hyperlipidemia, unspecified Status: Acute (7) Chronic obstructive pulmonary disease: Code(s): J44.9 - Chronic obstructive pulmonary disease, unspecified Status: Acute (8) Multifocal pneumonia: Code(s): J18.9 - Pneumonia, unspecified organism Status: Acute Plan Multifocal pneumonia small bilateral pleural effusions with mild opacities in bilateral lower lung zones which could represent mild pulmonary edema, atelectasis or pneumonia. Patient also has a leukocytosis, most likely community-acquired pneumonia Start doxycycline and ceftriaxone IV Follow-up CBC and procalcitonin Patient feels improving, but still has some cough with phlegm acute on chronic diastolic congestive heart failure Patient on IV Lasix 40 mg b.i.d. Echo 09/15/2022 EF 65-70% increased left ventricular wall thickness. Neck swelling: lower extremity Doppler to rule out DVT negative for DVT. PE less likely. increase Lasix to 60 mg b.i.d. b.i.d. IV push Blood pressure not well controlled. Continue amlodipine 10 mg daily p.o., carvedilol 6.25 mg b.i.d. p.o. Optimize medication for better blood pressure control COPD resume home medication not in acute exacerbation. CAD Stable Continue Plavix 75 mg daily p.o., aspirin 81 mg p.o. uterus 30 mg daily p.o. Hyperlipidemia Continue Lipitor 80 mg daily p.o. Type 2 diabetes on insulin at home. Start insulin sliding scale a.c. q.h.s. Chronic anemia no obvious signs of bleeding. Subjective Date/time seen: 09/17/22 09:15 Interval history: I saw and examined the patient today, patient feels shortness of breath is improving, still has some cough with phlegm. Last swelling persists. Exam Narrative: General: Well-developed, chronically ill-appearing female sitting up in bed in no distress. HEENT: Normocephalic, atraumatic. PERRL, EOMI. Sclera anicteric. Oral mucosa moist. Crowded oropharynx. Neck: Supple. Exam limited due to neck circumference. No obvious JVD. Respiratory: Respirations are nonlabored. She is currently on 2 L nasal cannula. Lung sounds are diminished due to body habitus. Cardiovascular: Regular rate and rhythm with S1-S2. Gastrointestinal: Abdomen is morbidly obese with pitting edema at the flanks. Positive bowel sounds. No tenderness to palpation. Skin: Warm and dry. Extremities: No cyanosis or clubbing. 3+ pitting edema up to the flanks. No palpable knots or cords though exam is limited. Negative Constantino sign bilaterally. Neurological: Alert. Cranial nerves 2-12 are grossly intact. No gross focal deficits to casual conversation. Psychiatric: Pleasant and cooperative with normal mood and affect. Judgment and insight intact. She is in good spirits. Objective Data Vital Signs Vital Signs: Vital Signs - 24 hr 09/16/22 12:00 09/16/22 14:00 09/16/22 16:01 Temperature 96.9 F L Pulse Rate 71 71 73 Respiratory Rate 20 Blood Pressure 140/59 L Pulse Oximetry 93 Oxygen Delivery Oxygen Flow Rate Fraction of Inspired Oxygen 09/16/22 20:50 09/16/22 21:43 09/16/22 22:00 Temperature 96.9 F L Pulse Rate 83 75 Respiratory Rate 14 Blood Pressure 158/63 H Pulse Oximetry
[2022-09-17 11:30] LABS: Glucose Point of Care 188 mg/dl (65-105)
[2022-09-17 11:44] LABS: Anion Gap 6 mmol/L (8-16); Blood Urea Nitrogen 20 mg/dL (7-17); Calcium 8.3 mg/dL (8.4-10.2); Carbon Dioxide 37 mmol/L (22-30); Chloride 96 mmol/L (98-107); Estimated CRCL calculation 39 ml/min; Estimated Glomerular Filt Rate 39; Glucose 117 mg/dL (65-110); Potassium 3.3 mmol/L (3.4-5.0); Sodium 139 mmol/L (137-145)
[2022-09-17] MEDS: cefTRIAXone 2 GM/NS 100 ML 2 GM/100 ML BAG IVPB (12:13)
--- NOTE | 2022-09-17 12:14 | P.CDI_ITS ---
CDI Query Clarification Request Documented history of CHF. CHF noted on assessment and plan. Lasix listed as a home medication. Patient receiving Lasix. Elevated BNP on 09/14/22 lab work. Pulmonary edema noted on the 09/14/22 chest xray. Please specify type and acuity of heart failure if known. * Acute * Chronic * Acute on Chronic * Unknown * Systolic * Diastolic * Combined Systolic and Diastolic * Unknown <Destini Tran RN - Last Filed: 09/17/22 12:20> Clarified Diagnosis Clarified Diagnosis: acute on chronic diastolic HF <Lakisha Reynoso MD - Last Filed: 09/18/22 07:16>
[2022-09-17 16:23] LABS: Glucose Point of Care 134 mg/dl (65-105)
[2022-09-17] MEDS: CALCIUM CARBONATE (TUMS) 500 MG (200 MG ELEMENTAL) 400 MG PO (17:17)
[2022-09-17] MEDS: FUROSEMIDE INJ 40 MG/4 ML VIAL 60 MG IV PUSH (17:18)
[2022-09-17] MEDS: BISACODYL 5 MG TABLET EC 10 MG PO (17:31)
[2022-09-17 21:07] LABS: Glucose Point of Care 100 mg/dl (65-105)
[2022-09-17] MEDS: ATORVASTATIN 40 MG TABLET 80 MG PO (21:11)
[2022-09-17] MEDS: CLOPIDOGREL BISULFATE 75 MG TABLET PO (21:16)
[2022-09-17] MEDS: INSULIN GLARGINE (*BKC) 100 UNITS/ML 30 UNITS SUB-Q (21:24)
[2022-09-18] VITALS (12 sets, daily range): BP systolic 141–162; BP diastolic 43–70; PULSE 70–78; RESP 12–20; TEMP 36.1–36.8; O2SAT 90–96
[2022-09-18] MEDS: FLUTICASONE/SALMETEROL 115-21 MCG INHALER 1 PUFF 2 PUFF INHALATION ×2 (08:12→20:04)
[2022-09-18 08:57] LABS: Glucose Point of Care 151 mg/dl (65-105)
[2022-09-18] MEDS: INSULIN ASPART (*BKC) 100 UNITS/ML 12 UNITS SUB-Q ×2 (09:04→12:26)
[2022-09-18] MEDS: FUROSEMIDE INJ 40 MG/4 ML VIAL 60 MG IV PUSH ×2 (09:06→16:56)
[2022-09-18] MEDS: ISOSORBIDE MONONITRATE 30 MG TAB.ER.24H PO (09:07)
[2022-09-18] MEDS: oxyBUTYnin CHLORIDE 5 MG TABLET PO (09:07)
[2022-09-18] MEDS: SERTRALINE HCL 50 MG TABLET 100 MG PO (09:07)
[2022-09-18] MEDS: PANTOPRAZOLE 40 MG TABLET PO ×2 (09:07→16:57)
[2022-09-18] MEDS: amLODIPine BESYLATE 5 MG TABLET 10 MG PO (09:08)
[2022-09-18] MEDS: MECLIZINE HCL 12.5 MG TABLET PO ×3 (09:08→16:59)
[2022-09-18] MEDS: carvediloL 6.25 MG TABLET PO ×2 (09:08→20:59)
[2022-09-18] MEDS: EZETIMIBE 10 MG TABLET BY MOUTH (09:09)
[2022-09-18] MEDS: ASPIRIN 81 MG ENTERIC TABLET PO (09:09)
[2022-09-18] MEDS: FLUTICASONE PROPIONATE 0.05% NA SPR 16 GM BTL (*BKC) 2 SPRAY NASAL (09:10)
[2022-09-18] MEDS: DOXYCYCLINE 100 MG/NS 100 ML 100 MG/100 ML BAG IVPB ×2 (09:18→21:00)
[2022-09-18 10:09] LABS: Glucose Point of Care 143 mg/dl (65-105)
--- NOTE | 2022-09-18 11:38 | PM.IMPN ---
Progress Note: A&P Assessment and Plan (1) Acute on chronic congestive heart failure: Code(s): I50.9 - Heart failure, unspecified Status: Acute (2) Coronary artery disease: Code(s): I25.10 - Atherosclerotic heart disease of [place] coronary artery without angina pectoris Status: Acute (3) Insulin dependent type 2 diabetes mellitus: Code(s): E11.9 - Type 2 diabetes mellitus without complications; Z79.4 - [facility] (current) use of insulin Status: Acute (4) Obstructive sleep apnea: Code(s): G47.33 - Obstructive sleep apnea (adult) (pediatric) Status: Acute (5) Hypertension: Code(s): I10 - Essential (primary) hypertension Status: Acute (6) Hyperlipidemia: Code(s): E78.5 - Hyperlipidemia, unspecified Status: Acute (7) Chronic obstructive pulmonary disease: Code(s): J44.9 - Chronic obstructive pulmonary disease, unspecified Status: Acute (8) Multifocal pneumonia: Code(s): J18.9 - Pneumonia, unspecified organism Status: Acute Plan Multifocal pneumonia small bilateral pleural effusions with mild opacities in bilateral lower lung zones which could represent mild pulmonary edema, atelectasis or pneumonia. Patient also has a leukocytosis, most likely community-acquired pneumonia Start doxycycline and ceftriaxone IV Follow-up CBC and procalcitonin Patient feels improving, but still has some cough with phlegm acute on chronic diastolic congestive heart failure Patient on IV Lasix 40 mg b.i.d. Echo 09/15/2022 EF 65-70% increased left ventricular wall thickness. leg swelling: lower extremity Doppler to rule out DVT negative for DVT. PE less likely. increased Lasix to 60 mg b.i.d. b.i.d. IV push Continue IV Lasix Blood pressure not well controlled. Continue amlodipine 10 mg daily p.o., carvedilol 6.25 mg b.i.d. p.o. Optimize medication for better blood pressure control COPD resume home medication not in acute exacerbation. CAD Stable Continue Plavix 75 mg daily p.o., aspirin 81 mg p.o. uterus 30 mg daily p.o. Hyperlipidemia Continue Lipitor 80 mg daily p.o. Type 2 diabetes on insulin at home. Start insulin sliding scale a.c. q.h.s. Chronic anemia no obvious signs of bleeding. Subjective Date/time seen: 09/18/22 11:38 Interval history: I saw and examined the patient today, patient feels shortness of breath is improving, . leg swelling persists, but improving on high-dose Lasix IV Exam Narrative: General: Well-developed, chronically ill-appearing female sitting up in bed in no distress. HEENT: Normocephalic, atraumatic. PERRL, EOMI. Sclera anicteric. Oral mucosa moist. Crowded oropharynx. Neck: Supple. Exam limited due to neck circumference. No obvious JVD. Respiratory: Respirations are nonlabored. She is currently on 2 L nasal cannula. Lung sounds are diminished due to body habitus. Cardiovascular: Regular rate and rhythm with S1-S2. Gastrointestinal: Abdomen is morbidly obese with pitting edema at the flanks. Positive bowel sounds. No tenderness to palpation. Skin: Warm and dry. Extremities: No cyanosis or clubbing. 3+ pitting edema up to the flanks. No palpable knots or cords though exam is limited. Negative Constantino sign bilaterally. Neurological: Alert. Cranial nerves 2-12 are grossly intact. No gross focal deficits to casual conversation. Psychiatric: Pleasant and cooperative with normal mood and affect. Judgment and insight intact. She is in good spirits. Objective Data Vital Signs Vital Signs: Vital Signs - 24 hr 09/17/22 12:24 09/17/22 12:00 09/17/22 14:00 Temperature 96.9 F L Pulse Rate 73 75 Respiratory Rate 16 Blood Pressure 127/58 L Pulse Oximetry 91 94 Oxygen Delivery Room Air Oxygen Flow Rate Fraction of Inspired Oxygen 09/17/22 17:31 09/17/22 17:33 09/17/22 16:00 Temperature Pulse Rate 80 Respiratory Rate Blood Pressure Pulse
[2022-09-18 11:43] LABS: Glucose Point of Care 103 mg/dl (65-105)
[2022-09-18] MEDS: cefTRIAXone 2 GM/NS 100 ML 2 GM/100 ML BAG IVPB (12:24)
--- NOTE | 2022-09-18 13:52 | PCCCNOTE ---
On 09/18/22, the student, [Sheila Barlow], provided care and completed [facility] documentation on this patient. I have reviewed the student's documentation and agree with the findings.
[2022-09-18 16:37] LABS: Glucose Point of Care 80 mg/dl (65-105)
[2022-09-18] MEDS: POTASSIUM CHLORIDE 20 MEQ ER TABLET PO (16:58)
[2022-09-18 20:48] LABS: Glucose Point of Care 181 mg/dl (65-105)
[2022-09-18] MEDS: ATORVASTATIN 40 MG TABLET 80 MG PO (20:59)
[2022-09-18] MEDS: CLOPIDOGREL BISULFATE 75 MG TABLET PO (20:59)
[2022-09-18] MEDS: INSULIN GLARGINE (*BKC) 100 UNITS/ML 30 UNITS SUB-Q (21:01)
[2022-09-19] VITALS (7 sets, daily range): BP systolic 118–145; BP diastolic 55–91; PULSE 70–72; RESP 12–20; TEMP 36.2–36.5; O2SAT 91–95
[2022-09-19 06:33] LABS: Hematocrit 28.3 % (37.0-47.0); Mean Corpuscular HGB Conc 31.8 g/dl (32-36); Mean Corpuscular Hemoglobin 28.8 pg (26-34); Mean Corpuscular Volume 90.4 fl (80-100); Mean Platelet Volume 11.2 fl (7.4-10.4); Platelet Count Result 214 k/mm3 (150-375); Red Blood Count 3.13 M/mm3 (4.2-5.4); Red Cell Distribution Width 13.8 % (11.5-14.5); White Blood Count 10.8 K/mm3 (4.5-10.0)
[2022-09-19 06:58] LABS: Blood Urea Nitrogen 25 mg/dL (7-17); Calcium 8.7 mg/dL (8.4-10.2); Carbon Dioxide > 40 mmol/L (22-30); Chloride 93 mmol/L (98-107); Estimated CRCL calculation 45 ml/min; Estimated Glomerular Filt Rate 48; Glucose 117 mg/dL (65-110); Potassium 3.7 mmol/L (3.4-5.0); Sodium 137 mmol/L (137-145)
[2022-09-19 07:22] LABS: Glucose Point of Care 130 mg/dl (65-105)
[2022-09-19] MEDS: FLUTICASONE/SALMETEROL 115-21 MCG INHALER 1 PUFF 2 PUFF INHALATION (08:00)
[2022-09-19] MEDS: INSULIN ASPART (*BKC) 100 UNITS/ML 12 UNITS SUB-Q (08:48)
[2022-09-19] MEDS: DOXYCYCLINE 100 MG/NS 100 ML 100 MG/100 ML BAG IVPB (08:55)
[2022-09-19] MEDS: oxyBUTYnin CHLORIDE 5 MG TABLET PO (08:57)
[2022-09-19] MEDS: ISOSORBIDE MONONITRATE 30 MG TAB.ER.24H PO (08:57)
[2022-09-19] MEDS: SERTRALINE HCL 50 MG TABLET 100 MG PO (08:57)
[2022-09-19] MEDS: MECLIZINE HCL 12.5 MG TABLET PO ×2 (08:57→13:06)
[2022-09-19] MEDS: FUROSEMIDE INJ 40 MG/4 ML VIAL 60 MG IV PUSH (08:57)
[2022-09-19] MEDS: PANTOPRAZOLE 40 MG TABLET PO (08:57)
[2022-09-19] MEDS: ASPIRIN 81 MG ENTERIC TABLET PO (08:57)
[2022-09-19] MEDS: POTASSIUM CHLORIDE 20 MEQ ER TABLET PO (08:57)
[2022-09-19] MEDS: carvediloL 6.25 MG TABLET PO (08:57)
[2022-09-19] MEDS: EZETIMIBE 10 MG TABLET BY MOUTH (08:57)
[2022-09-19] MEDS: amLODIPine BESYLATE 5 MG TABLET 10 MG PO (08:57)
[2022-09-19] MEDS: FLUTICASONE PROPIONATE 0.05% NA SPR 16 GM BTL (*BKC) 2 SPRAY NASAL (09:00)
--- NOTE | 2022-09-19 10:08 | PM.DS ---
DS: Admitting Diagnosis Discharge Date Today Admitting Diagnosis (1) Acute on chronic congestive heart failure: ?Code(s): I50.9 - Heart failure, unspecified ?Status:?Acute (2) Coronary artery disease: ?Code(s): I25.10 - Atherosclerotic heart disease of [place] coronary artery without angina pectoris ?Status:?Acute (3) Insulin dependent type 2 diabetes mellitus: ?Code(s): E11.9 - Type 2 diabetes mellitus without complications; Z79.4 - [facility] (current) use of insulin ?Status:?Acute (4) Obstructive sleep apnea: ?Code(s): G47.33 - Obstructive sleep apnea (adult) (pediatric) ?Status:?Acute (5) Hypertension: ?Code(s): I10 - Essential (primary) hypertension ?Status:?Acute (6) Hyperlipidemia: ?Code(s): E78.5 - Hyperlipidemia, unspecified ?Status:?Acute (7) Chronic obstructive pulmonary disease: ?Code(s): J44.9 - Chronic obstructive pulmonary disease, unspecified ?Status:?Acute (8) Multifocal pneumonia: ?Code(s): J18.9 - Pneumonia, unspecified organism ?Status:?Acute DS: Summary Hospital Course Reason for hospitalization: leg swelling, cough, shortness of breath Hospital Course: Per hPI, 82-year-old female with congestive heart failure, coronary artery disease, hypertension, hyperlipidemia, untreated obstructive sleep apnea, insulin-dependent diabetes mellitus, morbid obesity, and chronic obstructive pulmonary disease who presented to the emergency department via EMS for evaluation of shortness of breath and leg swelling. The patient provides the following history. She has been [facility] for approximately 3 months time. They unfortunately do not offer special diets and that she has not been on a diabetic or heart healthy diet. She also realized recently that she has not been getting her Lasix on a daily basis and instead she has been getting every other day. Over the last several weeks she has noticed increasing lower extremity edema which is now opted abdomen, orthopnea, and increasing dyspnea on minimal exertion. She has increasing difficulty even transferring to her motorized scooter due to increasing weight and swelling. During hospitalization, the following medications you were addressed Multifocal pneumonia small bilateral pleural effusions with mild opacities in bilateral lower lung zones which could represent mild pulmonary edema, atelectasis or pneumonia. Patient also has a leukocytosis, most likely community-acquired pneumonia Started doxycycline and ceftriaxone IV Now patient denies cough, changes doxycycline and cefdinir p.o. and discharge ?acute on chronic diastolic congestive heart failure Patient on IV Lasix 40 mg b.i.d.? Echo 09/15/2022 EF 65-70% increased left ventricular wall thickness. leg swelling:? lower extremity Doppler to rule out DVT negative for DVT.? PE less likely. ?increased Lasix to 60 mg b.i.d. b.i.d. IV push Now patient denies dyspnea, the swelling resolves Change to Lasix p.o. at home does, recommend patient's fluid restriction to 1 L day ?Blood pressure not well controlled. Possible due to fluid overload Continue amlodipine 10 mg daily p.o., carvedilol 6.25 mg b.i.d. p.o. plus IV Lasix Optimize medication for better blood pressure control control on the target COPD resume home medication not in acute exacerbation.? CAD Stable Continue Plavix 75 mg daily p.o., aspirin 81 mg p.o. uterus 30 mg daily p.o. Hyperlipidemia Continue Lipitor 80 mg daily p.o. Type 2 diabetes on insulin at home. Start insulin sliding scale a.c. q.h.s. Hospital course is uneventful, patient is afebrile, hemodynamically stable Time Spent with Patient Time attestation: Total time spent providing and/or coordinating discharge services: Exam Narrative: General: Well-developed, chronically ill-appearing female sitting up in bed in no distress. HEENT: Normocephalic, atraumatic. PERRL, EOMI. Sclera anicteric. Oral mucosa m
[2022-09-19 11:31] LABS: Glucose Point of Care 106 mg/dl (65-105)
[2022-09-19 12:26] LABS: SARS-CoV-2 RNA PCR Negative (Negative)
[2022-09-19] MEDS: cefTRIAXone 2 GM/NS 100 ML 2 GM/100 ML BAG IVPB (13:06)
--- NOTE | 2022-09-20 09:09 | PC.NURSE ---
Linda at [facility] called to clarify lasix dose. on discharge it is listed daily and also every other day. Dr. Reynoso notified and he would like it ordered daily. Linda at [facility] notified.
== END 2022-09-19 15:15 | DRG 291 ==
LOC: ANHED 13:54 → ANH3MEDSUR 15:08
PROVIDERS: Emergency Medicine; Internal Medicine; Physician Assistant; Admitting Provider Chiropractor; Emergency Provider Emergency Medicine; PCP Hospitalist; Visit Provider Hospitalist
DX: I11.0 Hypertensive heart disease with heart failure (principal); I50.33 Acute on chronic diastolic (congestive) heart failure; J18.9 Pneumonia, unspecified organism; Z68.42 Body mass index [BMI] 45.0-49.9, adult; J44.0 Chronic obstructive pulmonary disease with (acute) lower respiratory infection; I25.10 Atherosclerotic heart disease of native coronary artery without angina pectoris; G47.33 Obstructive sleep apnea (adult) (pediatric); E78.5 Hyperlipidemia, unspecified; D63.8 Anemia in other chronic diseases classified elsewhere; E66.01 Morbid (severe) obesity due to excess calories; Z20.822 Contact with and (suspected) exposure to COVID-19; M48.00 Spinal stenosis, site unspecified; F41.8 Other specified anxiety disorders; Z79.4 Long term (current) use of insulin; Z79.82 Long term (current) use of aspirin; Z85.51 Personal history of malignant neoplasm of bladder; Z90.49 Acquired absence of other specified parts of digestive tract; Z95.5 Presence of coronary angioplasty implant and graft; Z98.42 Cataract extraction status, left eye; Z98.41 Cataract extraction status, right eye; Z90.710 Acquired absence of both cervix and uterus; Z87.891 Personal history of nicotine dependence
CPT/HCPCS: 36415; 71045; 80048; 80053; 82274; 82607; 82728; 82746; 82948; 83036; 83540; 83550; 83735; 83880; 84145; 84443; 84484; 85025; 85027; 85046; 85610; 85730; 87635; 93005; 93970; 94640; 96365; 96366; 96367; 96374; 96375; 96376; 99285; A9270; C8929; G0378; J0696; J1815; J1940; J3475; Q9957

== ENCOUNTER 2022-09-24 23:29 | Inpatient (IN) | payer MEDICARE, MEDICAID, SELFPAY ==
--- NOTE | ~2022-09-24 | XR_ITS ---
Clinical Indication: Shortness of breath AP and lateral views of the chest: Comparison: 09/14/2022 Findings: There is minimal bibasilar haziness and probable small left pleural effusion. Cardiomedias tinal silhouette is within normal limits. Bones and soft tissues are unremarkable. Impression: Probable minimal bibasilar pulmonary edema and small left pleural effusion. Reviewed, dictated and finalized at location . Impression: Probable minimal bibasilar pulmonary edema and small left pleural effusion.
--- NOTE | ~2022-09-24 | CT_ITS ---
EXAMINATION:CT diagnostic chest wo con DATE: 09/28/2022 14:55 INDICATION: Shortness of breath. TECHNIQUE: Computed tomography (CT) of the chest was performed without intravenous contrast. Automate d exposure control and iterative reconstruction technique were employed. The dose-length product (DLP ) was 615.04 mGy-cm. COMPARISON: Chest single view 09/28/2022, CT abdomen and pelvis 11/01/2019 FINDINGS: There is mild emphysema. There are small pleural effusions. There is mild dependent atelect asis bilaterally. There is smooth septal thickening in the lungs with groundglass opacities, consiste nt mild pulmonary edema. Calcified right lung nodules and calcified right hilar and mediastinal lymph nodes are consistent with old granulomatous disease. There is a multinodular goiter. The heart size is normal. There are coronary artery calcifications. No pericardial effusion. Calcifications in the l iver and spleen are consistent with old granulomatous disease. There are changes of cholecystectomy. There are bridging endplate osteophytes at multiple levels in the spine, consistent with diffuse idio pathic skeletal hyperostosis (DISH). IMPRESSION: 1. Mild pulmonary edema. 2. Mild emphysema. 3. Small pleural effusions. Reviewed, dictated and finalized at location A.
--- NOTE | ~2022-09-24 | XR_ITS ---
Portable chest x-ray Comparison: 09/25/2022 Clinical History: Shortness of breath Findings: There is possible minimal central congestive change and minimal bibasilar pulmonary edema. Probable focal left basilar atelectasis. Cardiomediastinal silhouette is stable. Bones and soft tis sues are unremarkable. Impression: Suspected minimal bibasilar pulmonary edema/atelectatic change. Reviewed, dictated and finalized at location . Impression: Suspected minimal bibasilar pulmonary edema/atelectatic change.
[2022-09-24 23:27] VITALS: BP 174/63; PULSE 86; RESP 24; TEMP 36.8; O2SAT 96
[2022-09-24 23:36] VITALS: O2SAT 96
[2022-09-24 23:37] VITALS: PULSE 83
--- NOTE | 2022-09-24 23:38 | ECG_ITS ---
Measurements Intervals [place] Rate: 82 P: 27 HI: 159 QRS: 1 QRSD: 105 T: 60 QT: 366 QTc: 429 Interpretive Statements SINUS RHYTHM DELAYED PRECORDIAL R/S TRANSITION LOW QRS VOLTAGE IN PRECORDIAL LEADS BORDERLINE ST-T WAVE ABNORMALITY- DIFFUSE LEADS BASELINE ARTIFACT- I, II, III, AVR, AVL, AVF, V1-V6 BORDERLINE ECG COMPARED TO ECG 09/14/2022 12:32:32 NO SIGNIFICANT CHANGES Electronically Signed On 09-25-2022 6:46:30 CDT by Cheikh Elmore D.O.
[2022-09-25] VITALS (12 sets, daily range): BP systolic 108–154; BP diastolic 41–89; PULSE 64–85; RESP 12–21; TEMP 36–36.9; O2SAT 93–97; BMI 48.2
[2022-09-25 00:21] LABS: Basophils Absolute Auto 0.1 K/mm3 (0.0-0.1); Basophils Percent Auto 0.4 % (0.2-1.2); Eosinophils Absolute Auto 0.4 K/mm3 (0-0.3); Eosinophils Percent Auto 2.5 % (0-4.4); Hematocrit 29.8 % (37.0-47.0); Hemoglobin 9.7 g/dL (12.0-15.0); Immature Granulocyte Absolute 0.14 K/mm3 (0.00-0.031); Lymphocytes Absolute Auto 1.59 K/mm3 (0.9-3.2); Lymphocytes Percent Auto 10.8 % (18.3-44.2); Mean Corpuscular HGB Conc 32.6 g/dl (32-36); Mean Corpuscular Hemoglobin 28.6 pg (26-34); Mean Corpuscular Volume 87.9 fl (80-100); Mean Platelet Volume 10.3 fl (7.4-10.4); Monocytes Absolute Auto 1.1 K/mm3 (0.1-0.6); Monocytes Percent Auto 7.5 % (2.6-8.5); Neutrophils Absolute Auto 11.5 K/mm3 (1.3-6.7); Neutrophils Percent Auto 77.8 % (45.5-73.1); Platelet Count Result 316 k/mm3 (150-375); Red Blood Count 3.39 M/mm3 (4.2-5.4); Red Cell Distribution Width 13.1 % (11.5-14.5); White Blood Count 14.7 K/mm3 (4.5-10.0)
[2022-09-25 00:34] LABS: Partial Thromboplastin Time 37.1 SECONDS (22.3-36.8)
[2022-09-25 00:40] LABS: Alanine Aminotransferase 20 U/L (6-35); Albumin Level 3.9 g/dL (3.5-5.1); Alkaline Phosphatase 171 U/L (38-126); Aspartate Amino Transferase 23 U/L (14-36); Bilirubin,Total 0.7 mg/dL (0.2-1.3); Blood Urea Nitrogen 26 mg/dL (7-17); Calcium 8.9 mg/dL (8.4-10.2); Carbon Dioxide > 40 mmol/L (22-30); Chloride 95 mmol/L (98-107); Estimated CRCL calculation 46 ml/min; Estimated Glomerular Filt Rate 53; Glucose 174 mg/dL (65-110); Potassium 3.5 mmol/L (3.4-5.0); Sodium 136 mmol/L (137-145)
[2022-09-25 00:44] LABS: NT Pro B Type Natriuretic Pept 722 pg/mL (19.9-100); Troponin I < 0.012 ng/mL (0.000-0.034)
--- NOTE | 2022-09-25 00:51 | ED.SOB ---
HPI - SOB/Dyspnea General Chief Complaint: Shortness of Breath/Dyspnea Stated Complaint: sob Time Seen by Provider: 09/24/22 23:43 History of Present Illness HPI Narrative: 82yoF with increased PIETRO over last few days, and BLEE. Not on home O2 but feels much better after EMS gave her nebs/O2. Related Data Home Medications Medication Instructions Recorded Confirmed aspirin 81 mg tablet,delayed 81 mg PO QAM 11/03/19 09/25/22 release atorvastatin 80 mg tablet 80 mg PO HS 11/03/19 09/25/22 budesonide-formoterol HFA 160 2 puff inhalation PRN PRN 11/03/19 09/25/22 mcg-4.5 mcg/actuation aerosol Shortness Of Breath inhaler (Symbicort) clopidogrel 75 mg tablet 75 mg PO HS 11/03/19 09/25/22 furosemide 20 mg tablet 20 mg PO QAM 11/03/19 09/25/22 sertraline 100 mg tablet 100 mg PO QAM 11/03/19 09/25/22 albuterol sulfate 90 mcg/actuation 90 mcg inhalation Q4H PRN 09/14/22 09/25/22 aerosol inhaler Shortness Of Breath Or Wheezing amlodipine 10 mg tablet 10 mg PO DAILY 09/14/22 09/25/22 bisacodyl 5 mg tablet,delayed 10 mg PO DAILY PRN Constipation 09/14/22 09/25/22 release (Dulcolax (bisacodyl)) carvedilol 6.25 mg tablet 6.25 mg PO BID 09/14/22 09/25/22 ezetimibe 10 mg tablet 10 mg DAILY 09/14/22 09/25/22 fluticasone propionate 50 50 mcg intranasal DAILY 09/14/22 09/25/22 mcg/actuation nasal spray,suspension insulin aspart U-100 100 unit/mL 12 unit subcut TID 09/14/22 09/25/22 (3 mL) subcutaneous pen (Novolog FlexPen U-100 Insulin aspart) insulin glargine-yfgn 100 unit/mL 30 unit subcut HS 09/14/22 09/25/22 subcutaneous solution isosorbide mononitrate 30 mg 30 mg PO DAILY 09/14/22 09/25/22 tablet,extended release 24 hr loratadine 10 mg tablet 10 mg PO DAILY PRN Allergy Symptoms 09/14/22 09/25/22 meclizine 12.5 mg tablet 12.5 mg PO TID 09/14/22 09/25/22 methocarbamol 500 mg tablet 500 mg PO QID PRN Muscle Spasm 09/14/22 09/25/22 ondansetron 4 mg disintegrating 4 mg PO Q8H PRN Nausea 09/14/22 09/25/22 tablet oxybutynin chloride 5 mg tablet 5 mg PO DAILY 09/14/22 09/25/22 pantoprazole 40 mg tablet,delayed 40 mg PO BID 09/14/22 09/25/22 release tramadol 50 mg tablet 50 mg PO DAILY PRN Pain 09/14/22 09/25/22 Allergies Allergy/AdvReac Type Severity Reaction Status Date / Time codeine Allergy Nausea and Verified 09/24/22 23:38 Vomiting semaglutide [From Ozempic] Allergy Nausea and Verified 09/24/22 23:38 Vomiting gabapentin AdvReac Hallucinati Verified 09/24/22 23:38 ng Review of Systems Review of Systems: CONST: No fever. HEENT: No sore throat C/V: No chest pain RESP: Increased shortness of breath especially with movement GI: no abdominal pain, nausea or vomiting : No dysuria. M/S: Bilateral lower extremity SKIN: No rash. NEURO: [No headache or focal numbness or weakness] PSYCH: [No depression] [facility] Past Medical History Medical History Anxiety Arthritis Bladder cancer (11/2019) Status post TURBT with pathology showing superficial papillary urothelial carcinoma, noninvasive and low-grade. Chronic back pain Chronic obstructive pulmonary disease Coronary artery disease Degenerative disc disease Depression with anxiety Hyperlipidemia Hypertension Insulin dependent type 2 diabetes mellitus Obstructive sleep apnea Intolerant to PAP therapy. Spinal stenosis Super obesity Surgical History Surgical History (Updated 09/14/22 @ 15:58 by Magaly Sandra PA-C) History of appendectomy History of bilateral cataract extraction History of bladder suspension procedure (11/2019) History of cholecystectomy History of coronary artery stent placement (09/2018) History of elbow surgery History of hemorrhoidectomy History of hysterectomy (1969) History of knee surgery History of transurethral resection of bladder tumor (TURBT) Family History Family History Mother
[2022-09-25] MEDS: FUROSEMIDE INJ 40 MG/4 ML VIAL IV PUSH ×3 (00:53→17:30)
--- NOTE | 2022-09-25 02:42 | ADMGEN ---
This patient, Verna Baltazar, was admitted to [facility] Surg Room 305-02. Patient/family oriented to hospital policies and general routines including ID bracelet, bed and alarms, visiting hours, pain management, procedures, bathroom and other care routines, personal items, smoking policy, room service/diet, and visiting hours. Information on how to activate the Rapid Response Team has been discussed. Patient/Family are encouraged to report perceived risks to care and to ask questions if they do not understand what they are told or what they should do.
[2022-09-25 08:07] LABS: Glucose Point of Care 132 mg/dl (65-105)
[2022-09-25] MEDS: amLODIPine BESYLATE 5 MG TABLET 10 MG PO (09:04)
[2022-09-25] MEDS: FLUTICASONE PROPIONATE 0.05% NA SPR 16 GM BTL (*BKC) 2 SPRAY NASAL (09:04)
[2022-09-25] MEDS: CEFDINIR 300 MG CAPSULE PO ×2 (09:04→20:08)
[2022-09-25] MEDS: DOXYCYCLINE HYCLATE 100 MG TABLET PO ×2 (09:05→20:08)
[2022-09-25] MEDS: ASPIRIN 81 MG ENTERIC TABLET PO (09:05)
[2022-09-25] MEDS: carvediloL 6.25 MG TABLET PO ×2 (09:05→20:08)
[2022-09-25] MEDS: oxyBUTYnin CHLORIDE 5 MG TABLET PO (09:05)
[2022-09-25] MEDS: ISOSORBIDE MONONITRATE 30 MG TAB.ER.24H PO (09:05)
[2022-09-25] MEDS: PANTOPRAZOLE 40 MG TABLET PO ×2 (09:06→17:30)
[2022-09-25] MEDS: MECLIZINE HCL 12.5 MG TABLET PO ×3 (09:06→17:30)
[2022-09-25] MEDS: SERTRALINE HCL 50 MG TABLET 100 MG PO (09:06)
[2022-09-25] MEDS: INSULIN ASPART (*BKC) 100 UNITS/ML 12 UNITS SUB-Q ×2 (09:09→12:36)
--- NOTE | 2022-09-25 10:48 | PM.IMHP ---
H&P: HPI History of Present Illness Date/Time: 09/25/22 10:48 Chief Complaint: Shortness of breath Narrative: ED-Medical decision making narrative: 82-year-old female presenting to the emergency department with dyspnea, orthopnea and bilateral lower extremity edema, on exam is dyspneic with lower extremity edema and hypoxic on room air, presentation and history of CHF, consistent with most likely CHF exacerbation vs ACS/[place], COPD exacerbation, pneumonia, doubt PE with other more likely causes.? IV is established and cardiac workup is initiated.? Patient is given aspirin. EKG: Performed in triage and interpreted by me. [Sinus rhythm]. Rate 82. [Normal] axis. [place] [normal]. QRS duration [normal]. QTc [normal]. No pathologic Q waves. No ST segment elevation or depression to suggest acute ischemia. Chest x-ray is performed and per my independent interpretation, remarkable for [pulmonary vascular congestion]. Patient is started on lasix and placed on oxygen. Labs notable for BNP of 722 with normal troponin. [The patient will be admitted for CHF exacerbation and further management.]? She is agreeable with this plan.? Discussed with hospitalist who accepts. Patient is 82-year-old female morbidly obese was recently discharged from the hospital after patient was treated for congestive heart failure again patient presented with complaint of shortness of breath and lower extremity edema most likely patient has a exacerbation of CHF, S echo showed preserved LV function with ejection fraction of 65% and abnormal diastolic function, most likely patient is having acute on chronic diastolic congestive heart failure, will treat the patient IV Lasix 40 mg b.i.d. will monitor I's and O's, low-salt diet and further recommendation to follow. Patient is admitted as observation status Review of Systems Review of Systems: CONST: No fever. HEENT: No sore throat C/V: No chest pain RESP: Increased shortness of breath especially with movement GI: no abdominal pain, nausea or vomiting : No dysuria. M/S: Bilateral lower extremity SKIN: No rash. NEURO: [No headache or focal numbness or weakness] PSYCH: [No depression] [facility] Past Medical History Medical History Anxiety Arthritis Bladder cancer (11/2019) Status post TURBT with pathology showing superficial papillary urothelial carcinoma, noninvasive and low-grade. Chronic back pain Chronic obstructive pulmonary disease Coronary artery disease Degenerative disc disease Depression with anxiety Hyperlipidemia Hypertension Insulin dependent type 2 diabetes mellitus Obstructive sleep apnea Intolerant to PAP therapy. Spinal stenosis Super obesity Surgical History Surgical History (Updated 09/14/22 @ 15:58 by Magaly Sandra PA-C) History of appendectomy History of bilateral cataract extraction History of bladder suspension procedure (11/2019) History of cholecystectomy History of coronary artery stent placement (09/2018) History of elbow surgery History of hemorrhoidectomy History of hysterectomy (1969) History of knee surgery History of transurethral resection of bladder tumor (TURBT) Family History Family History Mother Cerebrovascular accident Social History Social History (Updated 09/14/22 @ 15:59 by Magaly Sandra PA-C) Social History: Surrogate medical decision maker: Jocelin Cueto, daughter. Code status: Full code. Smoking packs per day: 1 Smoking cigarettes per day: 20.0 Years smoked: 20 Smoking pack-years: 20.00 Smoking status: Former smoker Second hand tobacco smoke exposure: No Alcohol intake: never Substance use: never Substance use type: does not use Lack of Transportation: No Lack of Food: Never True Current Housing: I Have Housing Concerned About Future Housing: No Difficulty Paying Gas/Electric Bills: No Difficulty Paying fo
[2022-09-25] MEDS: POTASSIUM CHLORIDE 20 MEQ ER TABLET 40 MEQ PO (10:50)
[2022-09-25 11:10] LABS: Glucose Point of Care 121 mg/dl (65-105)
--- NOTE | 2022-09-25 15:24 | PCCCNOTE ---
On 09/25/22, the student, [Leslie Rizo ], provided care and completed [facility] documentation on this patient. I have reviewed the student's documentation and agree with the findings.
[2022-09-25 16:27] LABS: Glucose Point of Care 84 mg/dl (65-105)
--- NOTE | 2022-09-25 16:57 | PC.NURSE ---
spoke with provider regarding pt getting 12 units novolog scheduled when her glucose level is 84. provider stated to only give 6 units and to make sure she eats dinner. will administer 6 units novolog when her dinner tray is delivered
[2022-09-25] MEDS: ATORVASTATIN 40 MG TABLET 80 MG PO (20:08)
[2022-09-25] MEDS: CLOPIDOGREL BISULFATE 75 MG TABLET PO (20:08)
[2022-09-25] MEDS: FLUTICASONE/SALMETEROL 115-21 MCG INHALER 1 PUFF 2 PUFF INHALATION (20:24)
[2022-09-25 21:12] LABS: Glucose Point of Care 117 mg/dl (65-105)
[2022-09-25] MEDS: INSULIN GLARGINE (*BKC) 100 UNITS/ML 15 UNITS SUB-Q (21:14)
[2022-09-26] VITALS (7 sets, daily range): BP systolic 149–166; BP diastolic 56–64; PULSE 64–96; RESP 16–20; TEMP 36.2–36.7; O2SAT 95–99
[2022-09-26 05:51] LABS: Hematocrit 28.5 % (37.0-47.0); Hemoglobin 9.1 g/dL (12.0-15.0); Mean Corpuscular HGB Conc 31.9 g/dl (32-36); Mean Corpuscular Hemoglobin 28.7 pg (26-34); Mean Corpuscular Volume 89.9 fl (80-100); Mean Platelet Volume 10.6 fl (7.4-10.4); Platelet Count Result 288 k/mm3 (150-375); Red Blood Count 3.17 M/mm3 (4.2-5.4); Red Cell Distribution Width 13.2 % (11.5-14.5); White Blood Count 11.9 K/mm3 (4.5-10.0)
[2022-09-26 06:10] LABS: Blood Urea Nitrogen 23 mg/dL (7-17); Calcium 8.8 mg/dL (8.4-10.2); Carbon Dioxide > 40 mmol/L (22-30); Chloride 96 mmol/L (98-107); Estimated CRCL calculation 45 ml/min; Estimated Glomerular Filt Rate 48; Glucose 140 mg/dL (65-110); Potassium 4.2 mmol/L (3.4-5.0); Sodium 141 mmol/L (137-145)
[2022-09-26 07:19] LABS: Glucose Point of Care 143 mg/dl (65-105)
[2022-09-26] MEDS: FLUTICASONE/SALMETEROL 115-21 MCG INHALER 1 PUFF 2 PUFF INHALATION ×2 (07:24→19:59)
[2022-09-26] MEDS: CEFDINIR 300 MG CAPSULE PO ×2 (08:54→21:14)
[2022-09-26] MEDS: FUROSEMIDE INJ 40 MG/4 ML VIAL IV PUSH ×2 (08:55→17:28)
[2022-09-26] MEDS: PANTOPRAZOLE 40 MG TABLET PO ×2 (08:55→17:29)
[2022-09-26] MEDS: ASPIRIN 81 MG ENTERIC TABLET PO (08:55)
[2022-09-26] MEDS: oxyBUTYnin CHLORIDE 5 MG TABLET PO (08:55)
[2022-09-26] MEDS: FLUTICASONE PROPIONATE 0.05% NA SPR 16 GM BTL (*BKC) 2 SPRAY NASAL (08:55)
[2022-09-26] MEDS: carvediloL 6.25 MG TABLET PO ×2 (08:55→21:14)
[2022-09-26] MEDS: MECLIZINE HCL 12.5 MG TABLET PO ×3 (08:55→17:28)
[2022-09-26] MEDS: DOXYCYCLINE HYCLATE 100 MG TABLET PO ×2 (08:55→21:14)
[2022-09-26] MEDS: amLODIPine BESYLATE 5 MG TABLET 10 MG PO (08:55)
[2022-09-26] MEDS: ISOSORBIDE MONONITRATE 30 MG TAB.ER.24H PO (08:56)
[2022-09-26] MEDS: SERTRALINE HCL 50 MG TABLET 100 MG PO (08:56)
[2022-09-26] MEDS: INSULIN ASPART (*BKC) 100 UNITS/ML 12 UNITS SUB-Q ×3 (10:37→17:30)
[2022-09-26 11:39] LABS: Glucose Point of Care 216 mg/dl (65-105)
--- NOTE | 2022-09-26 14:24 | PM.IMPN ---
Progress Note: A&P Assessment and Plan (1) Acute on chronic diastolic (congestive) heart failure: Code(s): I50.33 - Acute on chronic diastolic (congestive) heart failure Status: Acute Assessment and Plan: ED-Medical decision making narrative: 82-year-old female presenting to the emergency department with dyspnea, orthopnea and bilateral lower extremity edema, on exam is dyspneic with lower extremity edema and hypoxic on room air, presentation and history of CHF, consistent with most likely CHF exacerbation vs ACS/[place], COPD exacerbation, pneumonia, doubt PE with other more likely causes.? IV is established and cardiac workup is initiated.? Patient is given aspirin. EKG: Performed in triage and interpreted by me. [Sinus rhythm]. Rate 82. [Normal] axis. [place] [normal]. QRS duration [normal]. QTc [normal]. No pathologic Q waves. No ST segment elevation or depression to suggest acute ischemia. Chest x-ray is performed and per my independent interpretation, remarkable for [pulmonary vascular congestion]. Patient is started on lasix and placed on oxygen. Labs notable for BNP of 722 with normal troponin. [The patient will be admitted for CHF exacerbation and further management.]? She is agreeable with this plan.? Discussed with hospitalist who accepts. Patient is 82-year-old female morbidly obese was recently discharged from the hospital after patient was treated for congestive heart failure again patient presented with complaint of shortness of breath and lower extremity edema most likely patient has a exacerbation of CHF, S echo showed preserved LV function with ejection fraction of 65% and abnormal diastolic function, most likely patient is having acute on chronic diastolic congestive heart failure, will treat the patient IV Lasix 40 mg b.i.d. will monitor I's and O's, low-salt diet and further recommendation to follow. 09/26/2022:82-year-old presented with dyspnea orthopnea bilateral lower extremity edema. Hypoxic on room air. Chest x-ray with pulmonary vascular congestion started on Lasix and placed on oxygen supplementation. BNP 722. Troponin negative. History of congestive heart failure diastolic/coronary artery disease/COPD/chronic back pain/anxiety depression/hypertension/hyperlipidemia/insulin-dependent type 2 diabetes/NIDA intolerant to PAP therapy/spinal stenosis. Diuresis with Lasix 40 mg IV b.i.d.. Monitor I's and O's. Leukocytosis on admission 14 K mild chronic anemia 9-10. Recent venous duplex negative for DVT. intermediate resident. Status post stent patient 219 data cancer status post TURBT. A1c 7.2. Echo with EF 65-70% and diastolic function. Also was recently treated for multifocal pneumonia with antibiotics. Feeling better since start of IV diuresis. Oxygens requirement remains stable. Recheck labs in a.m.. (2) Lower extremity edema: Code(s): R60.0 - Localized edema Status: Acute Assessment and Plan: Most likely secondary to acute on chronic diastolic congestive heart failure patient is being diuresed and will monitor (3) Hypertension: Code(s): I10 - Essential (primary) hypertension Status: Acute Plan Will continue home regimen and monitor Subjective Date/time seen: 09/26/22 14:24 Interval history: 82-year-old presented with dyspnea orthopnea bilateral lower extremity edema. Hypoxic on room air. Chest x-ray with pulmonary vascular congestion started on Lasix and placed on oxygen supplementation. BNP 722. Troponin negative. History of congestive heart failure diastolic/coronary artery disease/COPD/chronic back pain/anxiety depression/hypertension/hyperlipidemia/insulin-dependent type 2 diabetes/NIDA intolerant to PAP therapy/spinal stenosis. Diuresis with Lasix 40 mg IV b.i.d.. Monitor I's and O's. Leukocytosis on admission 14 K mild chronic anemia 9-10. Recent venous duplex negative for DVT. intermediate resident. Status post stent patient 219 data cancer status post TURBT. A1
[2022-09-26 16:39] LABS: Glucose Point of Care 130 mg/dl (65-105)
[2022-09-26 20:59] LABS: Glucose Point of Care 97 mg/dl (65-105)
[2022-09-26] MEDS: ATORVASTATIN 40 MG TABLET 80 MG PO (21:14)
[2022-09-26] MEDS: INSULIN GLARGINE (*BKC) 100 UNITS/ML 30 UNITS SUB-Q (21:15)
[2022-09-26] MEDS: CLOPIDOGREL BISULFATE 75 MG TABLET PO (21:15)
[2022-09-26 21:29] LABS: Glucose Point of Care 111 mg/dl (65-105)
[2022-09-27] VITALS (7 sets, daily range): BP systolic 142–186; BP diastolic 63–71; PULSE 66–72; RESP 16–20; TEMP 36.1–37.1; O2SAT 94–96
[2022-09-27 07:45] LABS: Hematocrit 27.1 % (37.0-47.0); Hemoglobin 8.6 g/dL (12.0-15.0); Mean Corpuscular HGB Conc 31.7 g/dl (32-36); Mean Corpuscular Hemoglobin 28.8 pg (26-34); Mean Corpuscular Volume 90.6 fl (80-100); Mean Platelet Volume 10.8 fl (7.4-10.4); Platelet Count Result 254 k/mm3 (150-375); Red Blood Count 2.99 M/mm3 (4.2-5.4); Red Cell Distribution Width 13.3 % (11.5-14.5); White Blood Count 10.4 K/mm3 (4.5-10.0)
[2022-09-27 08:05] LABS: Glucose Point of Care 152 mg/dl (65-105)
[2022-09-27] MEDS: INSULIN ASPART (*BKC) 100 UNITS/ML 12 UNITS SUB-Q ×3 (08:15→17:10)
[2022-09-27 08:18] LABS: Blood Urea Nitrogen 24 mg/dL (7-17); Calcium 8.3 mg/dL (8.4-10.2); Carbon Dioxide > 40 mmol/L (22-30); Chloride 95 mmol/L (98-107); Estimated CRCL calculation 45 ml/min; Estimated Glomerular Filt Rate 48; Glucose 155 mg/dL (65-110); Magnesium 1.8 mg/dL (1.6-2.3); Sodium 140 mmol/L (137-145)
[2022-09-27] MEDS: SERTRALINE HCL 50 MG TABLET 100 MG PO (08:18)
[2022-09-27] MEDS: amLODIPine BESYLATE 5 MG TABLET 10 MG PO (08:18)
[2022-09-27] MEDS: DOXYCYCLINE HYCLATE 100 MG TABLET PO ×2 (08:18→21:02)
[2022-09-27] MEDS: carvediloL 6.25 MG TABLET PO ×2 (08:18→21:02)
[2022-09-27] MEDS: FUROSEMIDE INJ 40 MG/4 ML VIAL IV PUSH ×2 (08:18→17:10)
[2022-09-27] MEDS: FLUTICASONE PROPIONATE 0.05% NA SPR 16 GM BTL (*BKC) 2 SPRAY NASAL (08:18)
[2022-09-27] MEDS: ISOSORBIDE MONONITRATE 30 MG TAB.ER.24H PO (08:18)
[2022-09-27] MEDS: oxyBUTYnin CHLORIDE 5 MG TABLET PO (08:18)
[2022-09-27] MEDS: MECLIZINE HCL 12.5 MG TABLET PO ×3 (08:19→17:10)
[2022-09-27] MEDS: ASPIRIN 81 MG ENTERIC TABLET PO (08:19)
[2022-09-27] MEDS: PANTOPRAZOLE 40 MG TABLET PO ×2 (08:19→17:10)
[2022-09-27] MEDS: CEFDINIR 300 MG CAPSULE PO ×2 (08:19→21:02)
[2022-09-27] MEDS: FLUTICASONE/SALMETEROL 115-21 MCG INHALER 1 PUFF 2 PUFF INHALATION ×2 (08:51→19:58)
--- NOTE | 2022-09-27 09:37 | PM.IMPN ---
Progress Note: A&P Assessment and Plan (1) Acute on chronic diastolic (congestive) heart failure: Code(s): I50.33 - Acute on chronic diastolic (congestive) heart failure Status: Acute Assessment and Plan: ED-Medical decision making narrative: 82-year-old female presenting to the emergency department with dyspnea, orthopnea and bilateral lower extremity edema, on exam is dyspneic with lower extremity edema and hypoxic on room air, presentation and history of CHF, consistent with most likely CHF exacerbation vs ACS/[place], COPD exacerbation, pneumonia, doubt PE with other more likely causes.? IV is established and cardiac workup is initiated.? Patient is given aspirin. EKG: Performed in triage and interpreted by me. [Sinus rhythm]. Rate 82. [Normal] axis. [place] [normal]. QRS duration [normal]. QTc [normal]. No pathologic Q waves. No ST segment elevation or depression to suggest acute ischemia. Chest x-ray is performed and per my independent interpretation, remarkable for [pulmonary vascular congestion]. Patient is started on lasix and placed on oxygen. Labs notable for BNP of 722 with normal troponin. [The patient will be admitted for CHF exacerbation and further management.]? She is agreeable with this plan.? Discussed with hospitalist who accepts. Patient is 82-year-old female morbidly obese was recently discharged from the hospital after patient was treated for congestive heart failure again patient presented with complaint of shortness of breath and lower extremity edema most likely patient has a exacerbation of CHF, S echo showed preserved LV function with ejection fraction of 65% and abnormal diastolic function, most likely patient is having acute on chronic diastolic congestive heart failure, will treat the patient IV Lasix 40 mg b.i.d. will monitor I's and O's, low-salt diet and further recommendation to follow. 09/26/2022:82-year-old presented with dyspnea orthopnea bilateral lower extremity edema. Hypoxic on room air. Chest x-ray with pulmonary vascular congestion started on Lasix and placed on oxygen supplementation. BNP 722. Troponin negative. History of congestive heart failure diastolic/coronary artery disease/COPD/chronic back pain/anxiety depression/hypertension/hyperlipidemia/insulin-dependent type 2 diabetes/NIDA intolerant to PAP therapy/spinal stenosis. Diuresis with Lasix 40 mg IV b.i.d.. Monitor I's and O's. Leukocytosis on admission 14 K mild chronic anemia 9-10. Recent venous duplex negative for DVT. [facility] resident. Status post stent patient 219 data cancer status post TURBT. A1c 7.2. Echo with EF 65-70% and diastolic function. Also was recently treated for multifocal pneumonia with antibiotics. Feeling better since start of IV diuresis. Oxygens requirement remains stable. Recheck labs in a.m.. 09/27/2022: 82-year-old presented with dyspnea orthopnea bilateral lower extremity edema. Hypoxic on room air. Chest x-ray with pulmonary vascular congestion started on Lasix and placed on oxygen supplementation. BNP 722. Troponin negative. History of congestive heart failure diastolic/coronary artery disease/COPD/chronic back pain/anxiety depression/hypertension/hyperlipidemia/insulin-dependent type 2 diabetes/NIDA intolerant to PAP therapy/spinal stenosis. Diuresis with Lasix 40 mg IV b.i.d.. Monitor I's and O's. Leukocytosis on admission 14 K whic is improving. down to 10. on cefdinir an dodxycyline. mild chronic anemia 9-10. Recent venous duplex negative for DVT. [facility] resident. Status post stent patient 219 data cancer status post TURBT. A1c 7.2. Echo with EF 65-70% and diastolic function. Also treated for multifocal pneumonia with antibiotics. Feeling better since start of IV diuresis. Oxygens requirement remains stable. labs reviewed. do not resuscitate cxr in am. (2) Lower extremity edema: Code(s): R60.0 - Localized edema Status: Acute Assessment and Plan: Most likely secondary to
[2022-09-27 11:23] LABS: Glucose Point of Care 109 mg/dl (65-105)
[2022-09-27 16:41] LABS: Glucose Point of Care 106 mg/dl (65-105)
[2022-09-27] MEDS: CLOPIDOGREL BISULFATE 75 MG TABLET PO (21:02)
[2022-09-27] MEDS: ATORVASTATIN 40 MG TABLET 80 MG PO (21:02)
[2022-09-27 21:23] LABS: Glucose Point of Care 88 mg/dl (65-105)
[2022-09-28] VITALS (8 sets, daily range): BP systolic 142–161; BP diastolic 44–63; PULSE 61–67; RESP 16–20; TEMP 35.6–37.2; O2SAT 95–98
[2022-09-28 06:44] LABS: Hematocrit 26.8 % (37.0-47.0); Hemoglobin 8.5 g/dL (12.0-15.0); Mean Corpuscular HGB Conc 31.7 g/dl (32-36); Mean Corpuscular Hemoglobin 28.8 pg (26-34); Mean Corpuscular Volume 90.8 fl (80-100); Mean Platelet Volume 10.7 fl (7.4-10.4); Platelet Count Result 253 k/mm3 (150-375); Red Blood Count 2.95 M/mm3 (4.2-5.4); Red Cell Distribution Width 13.1 % (11.5-14.5); White Blood Count 10.8 K/mm3 (4.5-10.0)
[2022-09-28 07:01] LABS: Blood Urea Nitrogen 22 mg/dL (7-17); Calcium 8.5 mg/dL (8.4-10.2); Carbon Dioxide > 40 mmol/L (22-30); Chloride 96 mmol/L (98-107); Estimated CRCL calculation 45 ml/min; Estimated Glomerular Filt Rate 48; Glucose 158 mg/dL (65-110); Magnesium 1.8 mg/dL (1.6-2.3); Potassium 3.9 mmol/L (3.4-5.0); Sodium 141 mmol/L (137-145)
[2022-09-28 07:36] LABS: Glucose Point of Care 153 mg/dl (65-105)
[2022-09-28] MEDS: FUROSEMIDE INJ 40 MG/4 ML VIAL IV PUSH ×2 (08:34→17:05)
[2022-09-28] MEDS: amLODIPine BESYLATE 5 MG TABLET 10 MG PO (08:34)
[2022-09-28] MEDS: MECLIZINE HCL 12.5 MG TABLET PO ×3 (08:34→17:05)
[2022-09-28] MEDS: FLUTICASONE PROPIONATE 0.05% NA SPR 16 GM BTL (*BKC) 2 SPRAY NASAL (08:34)
[2022-09-28] MEDS: ISOSORBIDE MONONITRATE 30 MG TAB.ER.24H PO (08:34)
[2022-09-28] MEDS: ASPIRIN 81 MG ENTERIC TABLET PO (08:34)
[2022-09-28] MEDS: carvediloL 6.25 MG TABLET PO ×2 (08:35→21:04)
[2022-09-28] MEDS: CEFDINIR 300 MG CAPSULE PO ×2 (08:35→21:05)
[2022-09-28] MEDS: SERTRALINE HCL 50 MG TABLET 100 MG PO (08:35)
[2022-09-28] MEDS: oxyBUTYnin CHLORIDE 5 MG TABLET PO (08:35)
[2022-09-28] MEDS: PANTOPRAZOLE 40 MG TABLET PO ×2 (08:35→17:05)
[2022-09-28] MEDS: DOXYCYCLINE HYCLATE 100 MG TABLET PO ×2 (08:35→21:05)
[2022-09-28] MEDS: INSULIN ASPART (*BKC) 100 UNITS/ML 12 UNITS SUB-Q ×3 (08:41→17:04)
[2022-09-28] MEDS: FLUTICASONE/SALMETEROL 115-21 MCG INHALER 1 PUFF 2 PUFF INHALATION ×2 (09:46→20:15)
[2022-09-28 11:37] LABS: Glucose Point of Care 217 mg/dl (65-105)
--- NOTE | 2022-09-28 12:46 | PM.IMPN ---
Progress Note: A&P Assessment and Plan (1) Acute on chronic diastolic (congestive) heart failure: Code(s): I50.33 - Acute on chronic diastolic (congestive) heart failure Status: Acute Assessment and Plan: ED-Medical decision making narrative: 82-year-old female presenting to the emergency department with dyspnea, orthopnea and bilateral lower extremity edema, on exam is dyspneic with lower extremity edema and hypoxic on room air, presentation and history of CHF, consistent with most likely CHF exacerbation vs ACS/[place], COPD exacerbation, pneumonia, doubt PE with other more likely causes.? IV is established and cardiac workup is initiated.? Patient is given aspirin. EKG: Performed in triage and interpreted by me. [Sinus rhythm]. Rate 82. [Normal] axis. [place] [normal]. QRS duration [normal]. QTc [normal]. No pathologic Q waves. No ST segment elevation or depression to suggest acute ischemia. Chest x-ray is performed and per my independent interpretation, remarkable for [pulmonary vascular congestion]. Patient is started on lasix and placed on oxygen. Labs notable for BNP of 722 with normal troponin. [The patient will be admitted for CHF exacerbation and further management.]? She is agreeable with this plan.? Discussed with hospitalist who accepts. Patient is 82-year-old female morbidly obese was recently discharged from the hospital after patient was treated for congestive heart failure again patient presented with complaint of shortness of breath and lower extremity edema most likely patient has a exacerbation of CHF, S echo showed preserved LV function with ejection fraction of 65% and abnormal diastolic function, most likely patient is having acute on chronic diastolic congestive heart failure, will treat the patient IV Lasix 40 mg b.i.d. will monitor I's and O's, low-salt diet and further recommendation to follow. 09/26/2022:82-year-old presented with dyspnea orthopnea bilateral lower extremity edema. Hypoxic on room air. Chest x-ray with pulmonary vascular congestion started on Lasix and placed on oxygen supplementation. BNP 722. Troponin negative. History of congestive heart failure diastolic/coronary artery disease/COPD/chronic back pain/anxiety depression/hypertension/hyperlipidemia/insulin-dependent type 2 diabetes/NIDA intolerant to PAP therapy/spinal stenosis. Diuresis with Lasix 40 mg IV b.i.d.. Monitor I's and O's. Leukocytosis on admission 14 K mild chronic anemia 9-10. Recent venous duplex negative for DVT. [facility] resident. Status post stent patient 219 data cancer status post TURBT. A1c 7.2. Echo with EF 65-70% and diastolic function. Also was recently treated for multifocal pneumonia with antibiotics. Feeling better since start of IV diuresis. Oxygens requirement remains stable. Recheck labs in a.m.. 09/27/2022: 82-year-old presented with dyspnea orthopnea bilateral lower extremity edema. Hypoxic on room air. Chest x-ray with pulmonary vascular congestion started on Lasix and placed on oxygen supplementation. BNP 722. Troponin negative. History of congestive heart failure diastolic/coronary artery disease/COPD/chronic back pain/anxiety depression/hypertension/hyperlipidemia/insulin-dependent type 2 diabetes/NIDA intolerant to PAP therapy/spinal stenosis. Diuresis with Lasix 40 mg IV b.i.d.. Monitor I's and O's. Leukocytosis on admission 14 K whic is improving. down to 10. on cefdinir an dodxycyline. mild chronic anemia 9-10. Recent venous duplex negative for DVT. [facility] resident. Status post stent patient 219 data cancer status post TURBT. A1c 7.2. Echo with EF 65-70% and diastolic function. Also treated for multifocal pneumonia with antibiotics. Feeling better since start of IV diuresis. Oxygens requirement remains stable. labs reviewed. do not resuscitate cxr in am. 09/28/2022: 82-year-old presented with dyspnea orthopnea bilateral lower extremity edema. Hypoxic on room air. Chest x-ray with pulmonary vasc
--- NOTE | 2022-09-28 12:47 | PCCCNOTE ---
On 09/28/22, the student, [Leslie Rizo ], provided care and completed [facility] documentation on this patient. I have reviewed the student's documentation and agree with the findings.
[2022-09-28 16:26] LABS: Glucose Point of Care 121 mg/dl (65-105)
[2022-09-28] MEDS: ATORVASTATIN 40 MG TABLET 80 MG PO (21:03)
[2022-09-28] MEDS: CLOPIDOGREL BISULFATE 75 MG TABLET PO (21:05)
[2022-09-28 21:30] LABS: Glucose Point of Care 140 mg/dl (65-105)
[2022-09-28] MEDS: INSULIN GLARGINE (*BKC) 100 UNITS/ML 12 UNITS SUB-Q (22:08)
[2022-09-29] VITALS (9 sets, daily range): BP systolic 128–152; BP diastolic 52–56; PULSE 63–84; RESP 16–20; TEMP 36.2–36.7; O2SAT 90–97
[2022-09-29 00:33] LABS: Glucose Point of Care 128 mg/dl (65-105)
[2022-09-29 03:05] LABS: Glucose Point of Care 115 mg/dl (65-105)
[2022-09-29 06:36] LABS: Hematocrit 28.3 % (37.0-47.0); Hemoglobin 8.8 g/dL (12.0-15.0); Mean Corpuscular HGB Conc 31.1 g/dl (32-36); Mean Corpuscular Hemoglobin 27.9 pg (26-34); Mean Corpuscular Volume 89.8 fl (80-100); Platelet Count Result 260 k/mm3 (150-375); Red Blood Count 3.15 M/mm3 (4.2-5.4); Red Cell Distribution Width 13.1 % (11.5-14.5); White Blood Count 10.9 K/mm3 (4.5-10.0)
[2022-09-29 06:53] LABS: Blood Urea Nitrogen 25 mg/dL (7-17); Calcium 8.7 mg/dL (8.4-10.2); Carbon Dioxide > 40 mmol/L (22-30); Chloride 95 mmol/L (98-107); Estimated CRCL calculation 41 ml/min; Estimated Glomerular Filt Rate 43; Glucose 128 mg/dL (65-110); Magnesium 1.9 mg/dL (1.6-2.3); Potassium 3.8 mmol/L (3.4-5.0); Sodium 142 mmol/L (137-145)
[2022-09-29 07:28] LABS: Glucose Point of Care 141 mg/dl (65-105)
[2022-09-29] MEDS: FLUTICASONE/SALMETEROL 115-21 MCG INHALER 1 PUFF 2 PUFF INHALATION ×2 (07:33→21:09)
[2022-09-29] MEDS: INSULIN ASPART (*BKC) 100 UNITS/ML 12 UNITS SUB-Q ×3 (08:54→17:06)
[2022-09-29] MEDS: carvediloL 6.25 MG TABLET PO ×2 (08:55→22:23)
[2022-09-29] MEDS: MECLIZINE HCL 12.5 MG TABLET PO ×3 (08:55→17:06)
[2022-09-29] MEDS: SERTRALINE HCL 50 MG TABLET 100 MG PO (08:55)
[2022-09-29] MEDS: ASPIRIN 81 MG ENTERIC TABLET PO (08:55)
[2022-09-29] MEDS: DOXYCYCLINE HYCLATE 100 MG TABLET PO ×2 (08:55→21:50)
[2022-09-29] MEDS: CEFDINIR 300 MG CAPSULE PO ×2 (08:56→21:49)
[2022-09-29] MEDS: FLUTICASONE PROPIONATE 0.05% NA SPR 16 GM BTL (*BKC) 2 SPRAY NASAL (08:56)
[2022-09-29] MEDS: ISOSORBIDE MONONITRATE 30 MG TAB.ER.24H PO (08:56)
[2022-09-29] MEDS: FUROSEMIDE INJ 40 MG/4 ML VIAL IV PUSH ×2 (08:56→17:06)
[2022-09-29] MEDS: amLODIPine BESYLATE 5 MG TABLET 10 MG PO (08:56)
[2022-09-29] MEDS: PANTOPRAZOLE 40 MG TABLET PO ×2 (08:56→17:06)
[2022-09-29] MEDS: oxyBUTYnin CHLORIDE 5 MG TABLET PO (08:56)
[2022-09-29 11:27] LABS: Glucose Point of Care 160 mg/dl (65-105)
--- NOTE | 2022-09-29 13:54 | PM.IMPN ---
Progress Note: A&P Assessment and Plan (1) Acute on chronic diastolic (congestive) heart failure: Code(s): I50.33 - Acute on chronic diastolic (congestive) heart failure Status: Acute Assessment and Plan: ED-Medical decision making narrative: 82-year-old female presenting to the emergency department with dyspnea, orthopnea and bilateral lower extremity edema, on exam is dyspneic with lower extremity edema and hypoxic on room air, presentation and history of CHF, consistent with most likely CHF exacerbation vs ACS/OR, COPD exacerbation, pneumonia, doubt PE with other more likely causes.? IV is established and cardiac workup is initiated.? Patient is given aspirin. EKG: Performed in triage and interpreted by me. [Sinus rhythm]. Rate 82. [Normal] axis. TX [normal]. QRS duration [normal]. QTc [normal]. No pathologic Q waves. No ST segment elevation or depression to suggest acute ischemia. Chest x-ray is performed and per my independent interpretation, remarkable for [pulmonary vascular congestion]. Patient is started on lasix and placed on oxygen. Labs notable for BNP of 722 with normal troponin. [The patient will be admitted for CHF exacerbation and further management.]? She is agreeable with this plan.? Discussed with hospitalist who accepts. Patient is 82-year-old female morbidly obese was recently discharged from the hospital after patient was treated for congestive heart failure again patient presented with complaint of shortness of breath and lower extremity edema most likely patient has a exacerbation of CHF, S echo showed preserved LV function with ejection fraction of 65% and abnormal diastolic function, most likely patient is having acute on chronic diastolic congestive heart failure, will treat the patient IV Lasix 40 mg b.i.d. will monitor I's and O's, low-salt diet and further recommendation to follow. 09/26/2022:82-year-old presented with dyspnea orthopnea bilateral lower extremity edema. Hypoxic on room air. Chest x-ray with pulmonary vascular congestion started on Lasix and placed on oxygen supplementation. BNP 722. Troponin negative. History of congestive heart failure diastolic/coronary artery disease/COPD/chronic back pain/anxiety depression/hypertension/hyperlipidemia/insulin-dependent type 2 diabetes/NIDA intolerant to PAP therapy/spinal stenosis. Diuresis with Lasix 40 mg IV b.i.d.. Monitor I's and O's. Leukocytosis on admission 14 K mild chronic anemia 9-10. Recent venous duplex negative for DVT. residential resident. Status post stent patient 219 data cancer status post TURBT. A1c 7.2. Echo with EF 65-70% and diastolic function. Also was recently treated for multifocal pneumonia with antibiotics. Feeling better since start of IV diuresis. Oxygens requirement remains stable. Recheck labs in a.m.. 09/27/2022: 82-year-old presented with dyspnea orthopnea bilateral lower extremity edema. Hypoxic on room air. Chest x-ray with pulmonary vascular congestion started on Lasix and placed on oxygen supplementation. BNP 722. Troponin negative. History of congestive heart failure diastolic/coronary artery disease/COPD/chronic back pain/anxiety depression/hypertension/hyperlipidemia/insulin-dependent type 2 diabetes/NIDA intolerant to PAP therapy/spinal stenosis. Diuresis with Lasix 40 mg IV b.i.d.. Monitor I's and O's. Leukocytosis on admission 14 K whic is improving. down to 10. on cefdinir an dodxycyline. mild chronic anemia 9-10. Recent venous duplex negative for DVT. residential resident. Status post stent patient 219 data cancer status post TURBT. A1c 7.2. Echo with EF 65-70% and diastolic function. Also treated for multifocal pneumonia with antibiotics. Feeling better since start of IV diuresis. Oxygens requirement remains stable. labs reviewed. do not resuscitate cxr in am. 09/28/2022: 82-year-old presented with dyspnea orthopnea bilateral lower extremity edema. Hypoxic on room air. Chest x-ray with pulmonary vasc
[2022-09-29 16:31] LABS: Glucose Point of Care 147 mg/dl (65-105)
--- NOTE | 2022-09-29 18:07 | PC.NURSE ---
Pt is A&O4 female who has participated and contributed in plan of care. Pt denies any pain at this time. Pt compliant with care. Pt expresses no needs at this time. Will continue to monitor pt.
[2022-09-29 21:14] LABS: Glucose Point of Care 133 mg/dl (65-105)
[2022-09-29] MEDS: ATORVASTATIN 40 MG TABLET 80 MG PO (21:48)
[2022-09-29] MEDS: CLOPIDOGREL BISULFATE 75 MG TABLET PO (21:50)
[2022-09-29] MEDS: INSULIN GLARGINE (*BKC) 100 UNITS/ML 10 UNITS SUB-Q (22:26)
[2022-09-30] VITALS (9 sets, daily range): BP systolic 124–147; BP diastolic 48–56; PULSE 60–70; RESP 16–20; TEMP 35.6–36.7; O2SAT 87–96
[2022-09-30 02:07] LABS: Glucose Point of Care 146 mg/dl (65-105)
[2022-09-30 06:18] LABS: Hematocrit 27.2 % (37.0-47.0); Hemoglobin 8.7 g/dL (12.0-15.0); Mean Corpuscular Hemoglobin 28.8 pg (26-34); Mean Corpuscular Volume 90.1 fl (80-100); Mean Platelet Volume 11.1 fl (7.4-10.4); Platelet Count Result 259 k/mm3 (150-375); Red Blood Count 3.02 M/mm3 (4.2-5.4); Red Cell Distribution Width 13.1 % (11.5-14.5); White Blood Count 11.8 K/mm3 (4.5-10.0)
[2022-09-30 06:34] LABS: Blood Urea Nitrogen 25 mg/dL (7-17); Calcium 8.8 mg/dL (8.4-10.2); Carbon Dioxide > 40 mmol/L (22-30); Chloride 96 mmol/L (98-107); Estimated CRCL calculation 36 ml/min; Estimated Glomerular Filt Rate 36; Glucose 135 mg/dL (65-110); Magnesium 1.8 mg/dL (1.6-2.3); Potassium 3.7 mmol/L (3.4-5.0); Sodium 139 mmol/L (137-145)
[2022-09-30 08:05] LABS: Glucose Point of Care 166 mg/dl (65-105)
[2022-09-30] MEDS: INSULIN ASPART (*BKC) 100 UNITS/ML 12 UNITS SUB-Q ×3 (09:35→17:00)
[2022-09-30] MEDS: oxyBUTYnin CHLORIDE 5 MG TABLET PO (09:36)
[2022-09-30] MEDS: MECLIZINE HCL 12.5 MG TABLET PO ×3 (09:36→17:00)
[2022-09-30] MEDS: SERTRALINE HCL 50 MG TABLET 100 MG PO (09:36)
[2022-09-30] MEDS: PANTOPRAZOLE 40 MG TABLET PO ×2 (09:36→17:00)
[2022-09-30] MEDS: CEFDINIR 300 MG CAPSULE PO ×2 (09:36→21:29)
[2022-09-30] MEDS: ISOSORBIDE MONONITRATE 30 MG TAB.ER.24H PO (09:37)
[2022-09-30] MEDS: amLODIPine BESYLATE 5 MG TABLET 10 MG PO (09:37)
[2022-09-30] MEDS: DOXYCYCLINE HYCLATE 100 MG TABLET PO ×2 (09:37→21:30)
[2022-09-30] MEDS: FLUTICASONE PROPIONATE 0.05% NA SPR 16 GM BTL (*BKC) 2 SPRAY NASAL (09:37)
[2022-09-30] MEDS: ASPIRIN 81 MG ENTERIC TABLET PO (09:37)
[2022-09-30] MEDS: carvediloL 6.25 MG TABLET PO ×2 (09:38→21:29)
[2022-09-30] MEDS: FLUTICASONE/SALMETEROL 115-21 MCG INHALER 1 PUFF 2 PUFF INHALATION ×2 (09:55→21:00)
--- NOTE | 2022-09-30 11:21 | PCCCNOTE ---
On 09/30/22, the student, [Leslie Rizo ], provided care and completed [facility] documentation on this patient. I have reviewed the student's documentation and agree with the findings.
[2022-09-30 11:28] LABS: Glucose Point of Care 145 mg/dl (65-105)
--- NOTE | 2022-09-30 14:13 | PC.NURSE ---
Addendum entered by Kareen Frausto RN 09/30/22 18:51: Pt has not urinated since baum removed. Pt bladder scanned and 250 urine in bladder. Pt denies the urge to urinate. Will continue to monitor and pass on to counselor camp nurse. Original Note: Pt had home O2 eval done. Pt needs to be on room air at rest and 1L with activity. Pt will have Apnealink done tonight. Pt had baum removed. Pt tolerating well. Pt denies pain at this time. Pt expresses no needs. Will continue to monitor pt.
--- NOTE | 2022-09-30 14:26 | HOMEO2EVAL ---
Evaluation was performed at [facility] Home Oxygen Evaluation RC: Home Oxygen (O2) Evaluation Start: 09/30/22 11:14 Freq: ONCE Status: Active Protocol: RPE Activity Type Activity Date Activity User E-sign Co-sign Detail Recorded Client Recorded Date Recorded By Document 09/30/22 13:50 [facility] [email or web address] 09/30/22 14:26 [facility] Document 09/30/22 13:55 [facility] [email or web address] 09/30/22 14:26 [facility] Document 09/30/22 14:00 [facility] [email or web address] 09/30/22 14:26 [facility] Document 09/30/22 14:15 [facility] [email or web address] 09/30/22 14:26 [facility] 09/30/22 09/30/22 09/30/22 13:50 13:55 14:00 Home O2 Evaluation [Oxygen] -Test Phase Resting Exercise Exercise -Oxygen Delivery Room Air Room Air Nasal Cannula -Oxygen Flow Rate (L/min) 1 [Pulse Oximetry] -Pulse Oximetry (90-100 %) 93 87 L 91 [Pulse Rate] -Pulse Rate (60-100 beats/min) 62 65 68 [Charges] -Treatment Charges O2 Evaluation - Inpatient 09/30/22 14:15 Home O2 Evaluation [Oxygen] -Test Phase Resting -Oxygen Delivery Room Air -Oxygen Flow Rate (L/min) [Pulse Oximetry] -Pulse Oximetry (90-100 %) 92 [Pulse Rate] -Pulse Rate (60-100 beats/min) 70 [Charges] -Treatment Charges
--- NOTE | 2022-09-30 14:28 | PM.IMPN ---
Progress Note: A&P Assessment and Plan (1) Acute on chronic diastolic (congestive) heart failure: Code(s): I50.33 - Acute on chronic diastolic (congestive) heart failure Status: Acute Assessment and Plan: present to the ED with dyspnea, orthopnea bilateral lower extremity edema. Being treated for CHF exacerbation. Echocardiogram revealing preserved left ventricular function with ejection fraction of 65% and abnormal diastolic function. IV Lasix 40 mg b.i.d.. Monitor I&Os, low-salt diet and daily weights. IV Lasix put on hold after BUN and creatinine started to rise. Patient having episodes of hypoxia with ambulation and or sleeping. Plan to order are home O2 evaluation and ApneaLink. (2) Lower extremity edema: Code(s): R60.0 - Localized edema Status: Acute Assessment and Plan: Most likely secondary to acute on chronic diastolic congestive heart failure patient is being diuresed and will monitor bilateral lower extremity ultrasound negative for DVT. (3) Hypertension: Code(s): I10 - Essential (primary) hypertension Status: Acute Assessment and Plan: Monitor pressures. Plan Will continue home regimen and monitor Subjective Date/time seen: 09/30/22 14:28 Interval history: Patient up to the chair doing well today. Discussed with her the plans for ApneaLink, home evaluation and catheter removal. She was could with this plan. Her kidneys seem to have decreased in function and plan to hold the Lasix and give a little bit of fluids. Hopeful that the patient will be able to be discharged tomorrow. She denies any chest pain, Worsening shortness a breath, nausea, vomiting and dizziness. Exam Narrative: GENERAL: Comfortable, no acute distress HENMT: moist mucous membranes EYES: EOM intact b/l NECK: no lymphadenopathy RESPIRATORY: clear to auscultation CARDIO: RRR GI: soft, nontender, bowel sounds present SKIN: no rashes EXTREMITIES: no edema, redness or tenderness Objective Data Vital Signs Vital Signs: Vital Signs - 24 hr 09/29/22 21:12 09/29/22 22:00 09/29/22 22:23 Temperature 97.2 F L Pulse Rate 70 67 67 Respiratory Rate 16 20 Blood Pressure 147/52 H Pulse Oximetry 93 Oxygen Delivery Oxygen Flow Rate 09/29/22 21:00 09/30/22 06:00 09/30/22 09:38 Temperature 98.0 F Pulse Rate 67 65 60 Respiratory Rate 19 20 Blood Pressure 147/49 H Pulse Oximetry 93 96 Oxygen Delivery Oxygen Flow Rate 09/30/22 13:50 09/30/22 13:55 09/30/22 14:00 Temperature Pulse Rate 62 65 68 Respiratory Rate Blood Pressure Pulse Oximetry 93 87 L 91 Oxygen Delivery Room Air Room Air Nasal Cannula Oxygen Flow Rate 1 09/30/22 14:15 Temperature Pulse Rate 70 Respiratory Rate Blood Pressure Pulse Oximetry 92 Oxygen Delivery Room Air Oxygen Flow Rate Intake/Output Intake/Output: Intake & Output 09/27/22 09/28/22 09/29/22 09/30/22 23:59 23:59 23:59 23:59 Intake Total 1290 1270 1002 830 Output Total 1055 2870 4860 1200 Balance -485 -280 -1248 -370 Meds/Results Medications: Active Medications Generic Name Dose Route Start Last Admin Trade Name Freq PRN Reason Stop Dose Admin Albuterol 2 puff 09/25/22 05:18 Albuterol Sulfate (*Sp) Aerosol 1 Puff INHALATION Q4H PRN Shortness Of Breath Or Wheezing Amlodipine Besylate 10 mg 09/25/22 09:00 09/30/22 09:37 Amlodipine Besylate 5 Mg Tablet PO 10 mg DAILY MAINE Administration Aspirin 81 mg 09/25/22 09:00 09/30/22 09:37 Aspirin 81 Mg Enteric Tablet PO 81 mg QAM MAINE Administration Atorvastatin Calcium 80 mg 09/25/22 21:00 09/29/22 21:48 Atorvastatin 40 Mg Tablet PO 80 mg HS MAINE Administration Bisacodyl 10 mg 09/25/22 05:18 Bisacodyl 5 Mg Tablet Ec PO DAILY PRN Constipation Carvedilol 6.25 mg 09/25/22 09:00 09/30/22 09:38 Carvedilol 6.25 Mg Tablet PO 6.25 mg Q12HR MAINE
--- NOTE | 2022-09-30 14:52 | PCRCNOTE ---
Home O2 Eval complete. Patient requires room with rest and 1lpm with activity. RN notified. Home O2 set up with [facility] [phone]. Tank in room for discharge.
[2022-09-30 16:45] LABS: Glucose Point of Care 125 mg/dl (65-105)
[2022-09-30] MEDS: SODIUM CHLORIDE 0.9% IV 500 ML 70 ML IV CONT (17:02)
[2022-09-30 21:27] LABS: Glucose Point of Care 165 mg/dl (65-105)
[2022-09-30] MEDS: ATORVASTATIN 40 MG TABLET 80 MG PO (21:28)
[2022-09-30] MEDS: CLOPIDOGREL BISULFATE 75 MG TABLET PO (21:30)
[2022-09-30] MEDS: INSULIN GLARGINE (*BKC) 100 UNITS/ML 10 UNITS SUB-Q (21:38)
[2022-10-01 02:10] LABS: Glucose Point of Care 139 mg/dl (65-105)
[2022-10-01 06:00] VITALS: BP 166/66; PULSE 68; RESP 20; TEMP 36.8; O2SAT 98
[2022-10-01 06:20] LABS: Hematocrit 26.8 % (37.0-47.0); Hemoglobin 8.5 g/dL (12.0-15.0); Mean Corpuscular HGB Conc 31.7 g/dl (32-36); Mean Corpuscular Hemoglobin 28.3 pg (26-34); Mean Corpuscular Volume 89.3 fl (80-100); Mean Platelet Volume 11.3 fl (7.4-10.4); Platelet Count Result 228 k/mm3 (150-375); Red Cell Distribution Width 13.1 % (11.5-14.5); White Blood Count 11.7 K/mm3 (4.5-10.0)
[2022-10-01 06:33] LABS: Anion Gap 3 mmol/L (8-16); Blood Urea Nitrogen 25 mg/dL (7-17); Calcium 8.5 mg/dL (8.4-10.2); Carbon Dioxide 38 mmol/L (22-30); Chloride 100 mmol/L (98-107); Estimated CRCL calculation 33 ml/min; Estimated Glomerular Filt Rate 33; Glucose 140 mg/dL (65-110); Magnesium 1.9 mg/dL (1.6-2.3); Potassium 3.7 mmol/L (3.4-5.0); Sodium 141 mmol/L (137-145)
--- NOTE | 2022-10-01 07:21 | WPDURCON ---
Assessment and Plan Assessment and plan (1) Urinary retention: Code(s): R33.9 - Retention of urine, unspecified Status: Acute Assessment and Plan: Over the acute nature, without antecedent history, this urinary retention I suspect this is likely simply related to vigorous diuresis and relative immobility. I will start tamsulosin and plan a voiding trial in a couple days, when she is more ambulatory Urology Consult Note HPI Date Seen: 10/01/22 Requesting Physician: Sarah Magdaleno MD Primary Care Provider: PHYSICIAN NOT ON STAFF Consult Narrative Narrative: Verna Baltazar is a 82 year old female , previously unknown to our practice, who is admitted with congestive heart failure. Just during the course of this admission she has developed a sense of incomplete bladder emptying and discomfort with urinary retention. A Genao catheter is in place. I can not determine what the volume obtained was. Prior to admission she denies any sense of incomplete bladder emptying. She denies a history recurrent urinary tract infection or hematuria. Review of Systems Review of Systems: All systems reviewed & are unremarkable except as noted in HPI and below PMFSH Past Medical History Medical History Anxiety Arthritis Bladder cancer (11/2019) Status post TURBT with pathology showing superficial papillary urothelial carcinoma, noninvasive and low-grade. Chronic back pain Chronic obstructive pulmonary disease Coronary artery disease Degenerative disc disease Depression with anxiety Hyperlipidemia Hypertension Insulin dependent type 2 diabetes mellitus Obstructive sleep apnea Intolerant to PAP therapy. Spinal stenosis Super obesity Surgical History Surgical History (Updated 09/14/22 @ 15:58 by Magaly Sandra PA-C) History of appendectomy History of bilateral cataract extraction History of bladder suspension procedure (11/2019) History of cholecystectomy History of coronary artery stent placement (09/2018) History of elbow surgery History of hemorrhoidectomy History of hysterectomy (1969) History of knee surgery History of transurethral resection of bladder tumor (TURBT) Family History Family History Mother Cerebrovascular accident Social History Social History (Updated 09/14/22 @ 15:59 by Magaly Sandra PA-C) Social History: Surrogate medical decision maker: Jocelin Cueto, daughter. Code status: Full code. Smoking packs per day: 1 Smoking cigarettes per day: 20.0 Years smoked: 20 Smoking pack-years: 20.00 Smoking status: Former smoker Second hand tobacco smoke exposure: No Alcohol intake: never Substance use: never Substance use type: does not use Lack of Transportation: No Lack of Food: Never True Current Housing: I Have Housing Concerned About Future Housing: No Difficulty Paying Gas/Electric Bills: No Difficulty Paying for Meds: No Currently Unemployed: No Education: Don't Know Difficulty w/ Childcare or Family Care: No Additional living arrangements comments: [facility]. Spiritual care concerns: No Meds Home Medications and Allergies Home Medications Medication Instructions Recorded Confirmed Type aspirin 81 mg tablet,delayed 81 mg PO [facility] 11/03/19 09/25/22 History release atorvastatin 80 mg tablet 80 mg PO 11/03/19 09/25/22 History budesonide-formoterol HFA 160 2 puff inhalation PRN PRN 11/03/19 09/25/22 History mcg-4.5 mcg/actuation aerosol Shortness Of Breath inhaler (Symbicort) clopidogrel 75 mg tablet 75 mg PO 11/03/19 09/25/22 History furosemide 20 mg tablet 20 mg PO [facility] 11/03/19 09/25/22 History sertraline 100 mg tablet 100 mg PO [facility] 11/03/19 09/25/22 History albuterol sulfate 90 mcg/actuation 90 mcg inhalation Q4H PRN 09/14/22 09/25/22 History aerosol inhaler Shortness Of
[2022-10-01 08:00] VITALS: O2SAT 92
[2022-10-01 08:04] LABS: Glucose Point of Care 157 mg/dl (65-105)
[2022-10-01] MEDS: FLUTICASONE/SALMETEROL 115-21 MCG INHALER 1 PUFF 2 PUFF INHALATION (08:53)
[2022-10-01 08:56] VITALS: PULSE 77; RESP 16; O2SAT 93
[2022-10-01] MEDS: ASPIRIN 81 MG ENTERIC TABLET PO (09:46)
[2022-10-01] MEDS: SERTRALINE HCL 50 MG TABLET 100 MG PO (09:46)
[2022-10-01] MEDS: PANTOPRAZOLE 40 MG TABLET PO (09:47)
[2022-10-01] MEDS: CEFDINIR 300 MG CAPSULE PO (09:47)
[2022-10-01 09:48] VITALS: PULSE 66
[2022-10-01] MEDS: carvediloL 6.25 MG TABLET PO (09:48)
[2022-10-01] MEDS: oxyBUTYnin CHLORIDE 5 MG TABLET PO (09:49)
[2022-10-01] MEDS: MECLIZINE HCL 12.5 MG TABLET PO ×2 (09:49→12:58)
[2022-10-01] MEDS: FERROUS SULFATE 325 MG TABLET DR PO (09:49)
[2022-10-01] MEDS: amLODIPine BESYLATE 5 MG TABLET 10 MG PO (09:49)
[2022-10-01] MEDS: FUROSEMIDE 20 MG TABLET PO (09:49)
[2022-10-01] MEDS: DOXYCYCLINE HYCLATE 100 MG TABLET PO (09:49)
[2022-10-01] MEDS: TAMSULOSIN HCL 0.4 MG CAPSULE PO (09:49)
[2022-10-01] MEDS: ISOSORBIDE MONONITRATE 30 MG TAB.ER.24H PO (09:49)
[2022-10-01 11:33] LABS: Glucose Point of Care 194 mg/dl (65-105)
--- NOTE | 2022-10-01 11:52 | PM.DS ---
DS: Admitting Diagnosis Discharge Date 10/01/22 Admitting Diagnosis CHF exacerbation DS: Discharge Diagnosis Discharge Diagnosis (1) Acute on chronic diastolic (congestive) heart failure: Code(s): I50.33 - Acute on chronic diastolic (congestive) heart failure Status: Acute Assessment and Plan: present to the ED with dyspnea, orthopnea bilateral lower extremity edema. Being treated for CHF exacerbation. Echocardiogram revealing preserved left ventricular function with ejection fraction of 65% and abnormal diastolic function. IV Lasix 40 mg b.i.d.. Monitor I&Os, low-salt diet and daily weights. IV Lasix put on hold after BUN and creatinine started to rise. Patient having episodes of hypoxia with ambulation and or sleeping. Plan to order are home O2 evaluation and ApneaLink. (2) Lower extremity edema: Code(s): R60.0 - Localized edema Status: Acute Assessment and Plan: Most likely secondary to acute on chronic diastolic congestive heart failure patient is being diuresed and will monitor bilateral lower extremity ultrasound negative for DVT. (3) Hypertension: Code(s): I10 - Essential (primary) hypertension Status: Acute Assessment and Plan: Monitor pressures. Plan Will continue home regimen and monitor DS: Summary Hospital Course Hospital Course: 8-year-old female with a past medical history of CHF, CKD, CAD, hypertension, hyperlipidemia, NIDA, diabetes and COPD that presented to the ED on 09/25/2022 with chief complaint of dyspnea, orthopnea and bilateral lower extremity edema. Chest x-ray revealed pulmonary vascular congestion and she was admitted for CHF exacerbation. She was started on IV Lasix and required oxygen supplementation. Patient underwent echocardiogram on 09/15/2022 revealing EF of 65-70% and diastolic dysfunction. Her previous hospitalization she was treated with multifocal pneumonia and was sent home with antibiotics. She finished this antibiotic course while in the hospital. Patient's shortness of breath and lower extremity edema improved with IV Lasix. Her kidney function did worsen after being diuresed. It is likely that the patient was fluid overloaded diluting her BUN and creatinine and once fluid was diuresed off of her it is revealing her true BUN and creatinine baseline. Patient did have home O2 evaluation done and they recommended patient be on 1 L of oxygen with activity and room air on rest. she had a CT of the chest performed on 09/29/2022 revealing mild pulmonary edema and mild emphysema with small pleural effusions. She was placed on a fluid restriction and diuresing continued. During her hospital stay she was found to have urinary retention and a Genao catheter was placed. A voiding trial patient was unable to urinate. Urology was consulted and she was started on tamsulosin and advised to follow-up with urology in approximately 7 days. Patient's labs and vital signs are stable and she is medically clear for discharge. Time Spent with Patient Time attestation: Total time spent providing and/or coordinating discharge services: Exam Narrative: GENERAL: Comfortable, no acute distress HENMT: moist mucous membranes EYES: EOM intact b/l NECK: no lymphadenopathy RESPIRATORY: clear to auscultation CARDIO: RRR GI: soft, nontender, bowel sounds present SKIN: no rashes EXTREMITIES: no edema, redness or tenderness DS: Data Data Completed and Pending Labs on day of discharge: Labs from last 24 hours 10/01/22 10/01/22 10/01/22 11:28 08:00 05:53 WBC 11.7 H RBC 3.00 L Hgb 8.5 L Hct 26.8 L MCV 89.3 MCH 28.3 MCHC 31.7 L RDW 13.1 Plt Count 228 MPV 11.3 H Sodium 141 Potassium 3.7 Chloride 100 Carbon Dioxide 38 H Anion Gap 3 L BUN 25 H Creatinine 1.50 H Estim Creat Clear Calc 33 Estimated GFR 33 L Glucose 140 H POC Capillary Glucose 194 H 157 H Calciu
[2022-10-01] MEDS: INSULIN ASPART (*BKC) 100 UNITS/ML 12 UNITS SUB-Q (12:57)
== END 2022-10-01 14:40 | disposition home health service (06) | DRG 291 ==
LOC: ANHED 23:49 → ANH3MEDSUR 09-25 01:52
PROVIDERS: Family Medicine; Admitting Provider Internal Medicine; Emergency Provider Emergency Medicine; Visit Provider Internal Medicine Critical Care Medicine
DX: I13.0 Hypertensive heart and chronic kidney disease with heart failure and stage 1 through stage 4 chronic kidney disease, or unspecified chronic kidney disease (principal); I50.33 Acute on chronic diastolic (congestive) heart failure; J96.01 Acute respiratory failure with hypoxia; Z68.42 Body mass index [BMI] 45.0-49.9, adult; J44.1 Chronic obstructive pulmonary disease with (acute) exacerbation; E11.22 Type 2 diabetes mellitus with diabetic chronic kidney disease; N18.9 Chronic kidney disease, unspecified; I25.10 Atherosclerotic heart disease of native coronary artery without angina pectoris; E78.5 Hyperlipidemia, unspecified; G47.33 Obstructive sleep apnea (adult) (pediatric); J44.9 Chronic obstructive pulmonary disease, unspecified; M48.00 Spinal stenosis, site unspecified; F41.8 Other specified anxiety disorders; E66.01 Morbid (severe) obesity due to excess calories; F41.9 Anxiety disorder, unspecified; R33.8 Other retention of urine; M19.90 Unspecified osteoarthritis, unspecified site; Z79.82 Long term (current) use of aspirin; Z85.51 Personal history of malignant neoplasm of bladder; Z90.49 Acquired absence of other specified parts of digestive tract; Z98.42 Cataract extraction status, left eye; Z98.41 Cataract extraction status, right eye; Z95.5 Presence of coronary angioplasty implant and graft; Z90.710 Acquired absence of both cervix and uterus; Z87.891 Personal history of nicotine dependence
CPT/HCPCS: 36415; 71045; 71046; 71250; 80048; 80053; 82948; 83735; 83880; 84484; 85025; 85027; 85610; 85730; 93005; 94618; 94640; 94762; 96374; 97110; 97116; 97162; 97165; 97530; 97535; 99291; A9270; G0378; J1815; J1940; J7040

== ENCOUNTER 2023-01-17 12:25 | Emergency (ER) | payer MEDICARE, MEDICAID, SELFPAY ==
[2023-01-17] VITALS (7 sets, daily range): BP systolic 146–216; BP diastolic 67–90; PULSE 62–69; RESP 13–20; TEMP 36.3; O2SAT 93–99
--- NOTE | ~2023-01-17 | XR_ITS ---
EXAMINATION: XR chest 2V DATE: 01/17/2023 15:24 INDICATION: Shortness of breath TECHNIQUE: frontal and lateral views of the chest were obtained. COMPARISON: Chest radiograph and CT dated 09/28/2022 FINDINGS: Left paracardial fat pad which obscures the left heart border and costophrenic angle. No airspace opa cities, pulmonary edema, pleural effusion or pneumothorax. Heart size is normal. Calcified right jone r and mediastinal lymph nodes consistent with old granulomatous disease. There are bridging osteophyt es at multiple levels consistent with diffuse idiopathic skeletal hyperostosis (DISH). IMPRESSION: 1. No acute cardiopulmonary disease. Reviewed, dictated and finalized at location A. COM NETWORK MANAGER
--- NOTE | ~2023-01-17 | CT_ITS ---
EXAMINATION: CT abdomen pelvis wo con DATE: 01/17/2023 18:33 INDICATION: Upper abdominal pain radiating to the right flank with nausea TECHNIQUE: Computed tomography (CT) of the abdomen and pelvis was performed without intravenous contr ast. Automated exposure control and iterative reconstruction technique were employed. The dose-length product was 1499.28 mGy-cm. COMPARISON: 11/01/2019 FINDINGS: Minimal left basilar atelectasis. Heart size is normal. Atherosclerotic coronary artery calcification s. No pericardial or pleural effusion. Multiple splenic and a few hepatic calcifications consistent w ith old granulomatous disease. No significant change in a 1.5 cm low-attenuation region of likely sca rring in segment 7 of the liver with opacification of the overlying hepatic capsule. Cholecystectomy clips the gallbladder fossa. Pancreas and bilateral adrenal glands are normal. Kidneys and ureters ar e normal with no urolithiasis, hydroureteronephrosis or perinephric/ureteral stranding. There is mild colonic diverticulosis with a sigmoid predominance. There is no adjacent inflammatory change to sugg est diverticulitis. No bowel obstruction. The appendix is again not visualized. No pericecal inflamma tory change to suggest acute appendicitis. There is a small amount of gas in the nondependent bladder as well as within the vaginal vault. The uterus is not identified and has likely been surgically res ected. There is calcified atherosclerosis of the aorta and many of the other arteries. No free intrap eritoneal gas or fluid. No pathologically enlarged abdominal or pelvic lymphadenopathy. Moderate lowe r lumbar spondylosis. IMPRESSION: 1. Gas within the otherwise unremarkable bladder. Correlate for recent instrumentation or Genao beto terization. 2. Sigmoid diverticulosis. 3. Stable appearance of a 1.5 cm irregular hypodense lesion and immediately overlying cleft in the he patic capsule at the posterior dome of the liver. Appearance suggests sequela of chronic scarring rel ated to a prior insult. Correlate with clinical history and any prior outside imaging and . Consider further evaluation with pre and postcontrast MRI as clinically indicated. Reviewed, dictated and finalized at location A. RAMS ASSISTANT IMPRESSION: 1. Gas within the otherwise unremarkable bladder. Correlate for recent instrume ntation or Genao catheterization. 2. Sigmoid diverticulosis. 3. Stable appearance of a 1.5 cm irregular hypodense lesion and immediately ove rlying cleft in the hepatic capsule at the posterior dome of the liver. Appeara nce suggests sequela of chronic scarring related to a prior insult. Correlate w ith clinical history and any prior outside imaging and . Consider further evalu ation with pre and postcontrast MRI as clinically indicated.
--- NOTE | 2023-01-17 15:04 | ECG_ITS ---
Measurements Intervals [place] Rate: 62 P: 66 SD: 158 QRS: -37 QRSD: 95 T: 59 QT: 421 QTc: 430 Interpretive Statements SINUS RHYTHM LEFT AXIS DEVIATION LOW QRS VOLTAGE IN PRECORDIAL LEADS BORDERLINE R WAVE PROGRESSION, ANTERIOR LEADS BORDERLINE T WAVE ABNORMALITY- HIGH LATERAL LEADS BASELINE ARTIFACT- I, II, AVR, AVL, AVF BORDERLINE ECG COMPARED TO ECG 09/24/2022 23:38:02 LEFT-AXIS DEVIATION NOW PRESENT Electronically Signed On 01-17-2023 16:51:46 BUSINESS INITIATIVES MANAGER by Cheikh Elmore D.O.
[2023-01-17 15:46] LABS: Basophils Absolute Auto 0.1 K/mm3 (0.0-0.1); Basophils Percent Auto 0.4 % (0.2-1.2); Eosinophils Absolute Auto 0.4 K/mm3 (0-0.3); Eosinophils Percent Auto 3.5 % (0-4.4); Hematocrit 36.3 % (37.0-47.0); Hemoglobin 11.7 g/dL (12.0-15.0); Immature Granulocyte Absolute 0.06 K/mm3 (0.00-0.031); Immature Granulocyte Percent A 0.5 % (0-0.5); Lymphocytes Absolute Auto 1.74 K/mm3 (0.9-3.2); Mean Corpuscular HGB Conc 32.2 g/dl (32-36); Mean Corpuscular Hemoglobin 28.1 pg (26-34); Mean Corpuscular Volume 87.1 fl (80-100); Mean Platelet Volume 12.1 fl (7.4-10.4); Monocytes Absolute Auto 0.7 K/mm3 (0.1-0.6); Neutrophils Absolute Auto 8.6 K/mm3 (1.3-6.7); Neutrophils Percent Auto 74.6 % (45.5-73.1); Platelet Count Result 200 k/mm3 (150-375); Red Blood Count 4.17 M/mm3 (4.2-5.4); Red Cell Distribution Width 13.5 % (11.5-14.5); White Blood Count 11.6 K/mm3 (4.5-10.0)
[2023-01-17 15:55] LABS: Alanine Aminotransferase 18 U/L (6-35); Alkaline Phosphatase 157 U/L (38-126); Anion Gap 9 mmol/L (8-16); Aspartate Amino Transferase 19 U/L (14-36); Bilirubin,Total 0.7 mg/dL (0.2-1.3); Blood Urea Nitrogen 41 mg/dL (7-17); Calcium 9.1 mg/dL (8.4-10.2); Carbon Dioxide 31 mmol/L (22-30); Chloride 96 mmol/L (98-107); Estimated CRCL calculation 29 ml/min; Estimated Glomerular Filt Rate 29; Glucose 386 mg/dL (65-110); Potassium 4.1 mmol/L (3.4-5.0); Sodium 136 mmol/L (137-145)
--- NOTE | 2023-01-17 17:52 | ED.GENADULT ---
HPI - General Adult General Chief complaint: Shortness of Breath/Dyspnea Stated complaint: shortness of breath Time Seen by Provider: 01/17/23 17:27 Source: patient, RN notes reviewed and old records reviewed Mode of arrival: ambulatory Limitations: no limitations History of Present Illness HPI narrative: This is an 82 year old female with history of CHF, hypertension, DM, COPD , morbid obesity who presents for evaluation of upper abdominal discomfort. She states her shortness of breath is chronic and she is not here for sob. She states starting yesterday she has full feeling in her upper abdomen . She had nausea without vomiting but she denies nausea now. She had normal bowel movement today. She denies fever, chills, chest pain. Her sob is not worse than normal. These symptoms started after eating yesterday. She states she would not describe as pain but she just feels full. Related Data Home Medications Medication Instructions Recorded Confirmed aspirin 81 mg tablet,delayed 81 mg PO QAM 11/03/19 09/25/22 release atorvastatin 80 mg tablet 80 mg PO HS 11/03/19 09/25/22 budesonide-formoterol HFA 160 2 puff inhalation PRN PRN 11/03/19 09/25/22 mcg-4.5 mcg/actuation aerosol Shortness Of Breath inhaler (Symbicort) clopidogrel 75 mg tablet 75 mg PO HS 11/03/19 09/25/22 furosemide 20 mg tablet 20 mg PO QAM 11/03/19 09/25/22 sertraline 100 mg tablet 100 mg PO QAM 11/03/19 09/25/22 albuterol sulfate 90 mcg/actuation 90 mcg inhalation Q4H PRN 09/14/22 09/25/22 aerosol inhaler Shortness Of Breath Or Wheezing amlodipine 10 mg tablet 10 mg PO DAILY 09/14/22 09/25/22 bisacodyl 5 mg tablet,delayed 10 mg PO DAILY PRN Constipation 09/14/22 09/25/22 release (Dulcolax (bisacodyl)) carvedilol 6.25 mg tablet 6.25 mg PO BID 09/14/22 09/25/22 ezetimibe 10 mg tablet 10 mg DAILY 09/14/22 09/25/22 fluticasone propionate 50 50 mcg intranasal DAILY 09/14/22 09/25/22 mcg/actuation nasal spray,suspension insulin aspart U-100 100 unit/mL 12 unit subcut TID 09/14/22 09/25/22 (3 mL) subcutaneous pen (Novolog FlexPen U-100 Insulin aspart) insulin glargine-yfgn 100 unit/mL 30 unit subcut HS 09/14/22 09/25/22 subcutaneous solution isosorbide mononitrate 30 mg 30 mg PO DAILY 09/14/22 09/25/22 tablet,extended release 24 hr loratadine 10 mg tablet 10 mg PO DAILY PRN Allergy Symptoms 09/14/22 09/25/22 meclizine 12.5 mg tablet 12.5 mg PO TID 09/14/22 09/25/22 methocarbamol 500 mg tablet 500 mg PO QID PRN Muscle Spasm 09/14/22 09/25/22 ondansetron 4 mg disintegrating 4 mg PO Q8H PRN Nausea 09/14/22 09/25/22 tablet oxybutynin chloride 5 mg tablet 5 mg PO DAILY 09/14/22 09/25/22 pantoprazole 40 mg tablet,delayed 40 mg PO BID 09/14/22 09/25/22 release tramadol 50 mg tablet 50 mg PO DAILY PRN Pain 09/14/22 09/25/22 Allergies Allergy/AdvReac Type Severity Reaction Status Date / Time codeine Allergy Nausea and Verified 01/17/23 12:41 Vomiting semaglutide [From Ozempic] Allergy Nausea and Verified 01/17/23 12:41 Vomiting gabapentin AdvReac Hallucinati Verified 01/17/23 12:41 ng Review of Systems Constitutional: Constitutional: Denies weakness Cardiovascular: Cardiovascular: Denies syncope, Denies rapid heart rate, Denies irregular heart rhythm, Denies leg edema and Reports dyspnea (chronic) Respiratory: Respiratory: Denies chest congestion, Denies hemoptysis, Denies excessive phlegm production and Reports dyspnea (chronic) Gastrointestinal: Gastrointestinal: Reports abdominal pain, Denies hematochezia, Denies diarrhea, Reports nausea and Denies vomiting Genitourinary: Genitourinary: Denies hematuria and Denies dysuria Musculoskeletal: Musculoskeletal: Denies joint swelling, Denies loss of height and Denies muscle weakness Neurologic: Denies syncope, Denies focal weakness and Denies weakness PMFSH Past Medical History Medical History Javier Pendleton
[2023-01-17 18:07] LABS: Lipase 41 U/L (23-300); Prothrombin Time 13.3 Seconds (11.1-14.7)
[2023-01-17 18:08] LABS: Partial Thromboplastin Time 29.1 SECONDS (22.3-36.8)
[2023-01-17 18:16] LABS: NT Pro B Type Natriuretic Pept 426 pg/mL (19.9-100)
[2023-01-17 18:20] LABS: Troponin I < 0.012 ng/mL (0.000-0.034)
[2023-01-17 19:25] LABS: Alveolar/Arterial O2 Gradient 22.1 mmHg; Base Excess ABG 4.2 mEq/l (+/-2.0); Fractional Inspired Oxygen 21 %; HCO3 ABG 29.5 mEq/l (22.0-26.0); Methemoglobin ABG 0.3 %THb (0-1.5); Oxygen Saturation ABG 94.4 % (95.0-100.0); Oxyhemoglobin 91.6 % THb (90.0-100.0); PO2 ABG 71.3 mmHg (80.0-100.0); Reduced Hemoglobin 7.1 %THb (0-5.0); Total Hemoglobin 11.6 g/dL (12.0-18.0); pH ABG 7.415 (7.350-7.450)
[2023-01-17 19:26] LABS: Device ROOM AIR; Modified Allen's Test Pass; Site Drawn RIGHT RADIAL
[2023-01-17] MEDS: BELLADONNA ALK/PHENOB ELIX 10 ML, MAG HYDROX/ALUMINUM HYD/SIMETH 30 ML, LIDOCAINE HCL 2... PO (20:13)
== END 2023-01-17 21:27 | disposition home or self-care (01) ==
PROVIDERS: Student in an Organized Health Care Education/Training Program; Emergency Provider General Practice
DX: R10.10 Upper abdominal pain, unspecified (principal); K21.9 Gastro-esophageal reflux disease without esophagitis; I50.9 Heart failure, unspecified; I11.0 Hypertensive heart disease with heart failure; E11.9 Type 2 diabetes mellitus without complications; J44.9 Chronic obstructive pulmonary disease, unspecified; I25.10 Atherosclerotic heart disease of native coronary artery without angina pectoris; E78.5 Hyperlipidemia, unspecified; E66.01 Morbid (severe) obesity due to excess calories; Z68.42 Body mass index [BMI] 45.0-49.9, adult; G47.33 Obstructive sleep apnea (adult) (pediatric); M19.90 Unspecified osteoarthritis, unspecified site; F41.8 Other specified anxiety disorders; Z85.51 Personal history of malignant neoplasm of bladder; Z98.42 Cataract extraction status, left eye; Z98.41 Cataract extraction status, right eye; Z95.5 Presence of coronary angioplasty implant and graft; Z90.49 Acquired absence of other specified parts of digestive tract; Z90.710 Acquired absence of both cervix and uterus; Z87.891 Personal history of nicotine dependence; Z79.82 Long term (current) use of aspirin; Z79.4 Long term (current) use of insulin; K57.30 Diverticulosis of large intestine without perforation or abscess without bleeding; K76.9 Liver disease, unspecified; R94.31 Abnormal electrocardiogram [ECG] [EKG]
CPT/HCPCS: 36415; 36600; 71046; 74176; 80053; 82375; 82805; 83050; 83690; 83880; 84484; 85025; 85610; 85730; 93005; 99284; A9270

== ENCOUNTER 2023-03-04 08:25 | Inpatient (IN) | payer MEDICARE, MEDICAID, SELFPAY ==
[2023-03-04] VITALS (27 sets, daily range): BP systolic 138–178; BP diastolic 60–82; PULSE 61–78; RESP 14–24; TEMP 36.4–36.6; O2SAT 98–100; BMI 47.4
--- NOTE | ~2023-03-04 | CT_ITS ---
EXAMINATION: CT brain wo con INDICATION: Confusion COMPARISON: None TECHNIQUE: Standard unenhanced head CT. The dose-length product (DLP) was 605.33 mGy-cm. The mA was a djusted according to patient size. Iterative reconstruction technique was employed. FINDINGS: No acute intraparenchymal hemorrhage. No evidence of mass lesion. No evidence of acute infa rction. There is mild periventricular and subcortical hypodensity probably related to small vessel is chemic disease. There is mild prominence of the sulci and ventricles related to cerebral atrophy. Int racranial calcified cerebral atherosclerosis is noted. No extra-axial collections. No mass effect or midline shift. Changes in the globes are likely from ocular lens surgery. There is mild mucosal thick ening of the paranasal sinuses. IMPRESSION: 1. No acute intracranial abnormality. 2. Age related findings. Reviewed, dictated and finalized at location L. HIATRIC REGISTERED NURSE
--- NOTE | ~2023-03-04 | XR_ITS ---
EXAMINATION: XR chest 2V DATE: 03/09/2023 13:51 INDICATION: Shortness of breath. TECHNIQUE: Frontal and lateral views of the chest were obtained. COMPARISON: Chest 2 views 03/04/2023, CT abdomen and pelvis 03/08/2023 FINDINGS: There are small pleural effusions. Calcified right lung nodules and calcified right hilar l ymph nodes are consistent with old granulomatous disease. There are airspace opacities in the mid and lower lung zones. No pneumothorax. Cardiomegaly is noted. There are surgical clips in right abdomen. IMPRESSION: 1. Worsened airspace opacities in the mid and lower lung zones, consistent with atelectasis versus pn eumonia. 2. Small pleural effusions. 3. Cardiomegaly. Reviewed, dictated and finalized at location E. PLOYMENT INSPECTOR IMPRESSION: 1. Worsened airspace opacities in the mid and lower lung zones, consistent with atelectasis versus pneumonia. 2. Small pleural effusions. 3. Cardiomegaly.
--- NOTE | ~2023-03-04 | CT_ITS ---
CT of the Abdomen and Pelvis: Indication: Nausea and vomiting Technique: 2.5 mm axial scans were obtained through the abdomen and pelvis following intravenous adm inistration of 100 cc of Omnipaque 350. Dose reduction technique was used on this scan by utilizing a utomated exposure control and iterative reconstruction technique. The dose-length product (DLP) was 1 542.96 mGy-cm. COMPARISON: 01/17/2023 Findings: Scans through the lung bases are unremarkable. The liver, spleen, pancreas, adrenals and kidneys are within normal limits. Cholecystectomy clips are present. There are atherosclerotic calcifications of the aorta. No lymphadenopathy. No bowel obstruction or bowel wall thickening. There is no evidence to suggest acute appendicitis. Images through the pelvis were performed. Small amount of air present in the urinary bladder. There a re probable small areas of nodularity at the urinary bladder wall anteriorly (axial images 167, 151). No pelvic mass seen. No ascites. Impression: Small areas of nodularity of the anterior urinary bladder wall, as detailed above. Urinary bladder ne oplasm is not excluded. Consider cystoscopy. Small amount of air in urinary bladder is presumably iatrogenic. Correlate clinically. No other significant findings. Reviewed, dictated and finalized at location . RETTE AND FILTER CHIEF INSPECTOR Impression: Small areas of nodularity of the anterior urinary bladder wall, as detailed abo ve. Urinary bladder neoplasm is not excluded. Consider cystoscopy. Small amount of air in urinary bladder is presumably iatrogenic. Correlate clin ically. No other significant findings.
--- NOTE | ~2023-03-04 | CT_ITS ---
EXAMINATION: CT abdomen pelvis wo con DATE: 03/08/2023 12:26 INDICATION: Abdominal discomfort and distention TECHNIQUE: Computed tomography (CT) of the abdomen and pelvis was performed without intravenous contr ast. The dose-length product was 1535.02 mGy-cm. Automated exposure control and iterative reconstruct ion technique were employed. COMPARISON: CT dated 03/04/2023. FINDINGS: Small pleural effusions. Heart size normal. There are calcified granulomas of the spleen. T here is dependent atelectasis. Status post cholecystectomy. Pancreas is atrophic. The adrenal glands and kidneys are unremarkable. Small amount of gas in the bladder lumen nondependent, likely from rece nt instrumentation. Colonic diverticulosis without evidence for diverticulitis. There is moderate dif fuse atherosclerosis without aneurysm. Moderate lumbar spondylosis. No focal lytic or blastic lesions . No free air or free fluid. Small fat-containing umbilical hernia. IMPRESSION: 1. Small pleural effusions with underlying compressive atelectasis. Reviewed, dictated and finalized at location A. YLENE TORCH SOLDERER
--- NOTE | ~2023-03-04 | XR_ITS ---
EXAMINATION: XR chest 2V DATE: 03/04/2023 13:47 INDICATION: Confusion TECHNIQUE: AP and lateral views of the chest are obtained. COMPARISON: 01/17/2023 FINDINGS: There are small pleural effusions. There are minimal airspace opacities of the lung bases. No pneumothorax is identified. The cardiomediastinal silhouette is stable. There are bridging osteoph ytes at multiple levels in the spine, consistent with diffuse idiopathic skeletal hyperostosis (DISH) . Surgical changes are noted in the right upper quadrant. IMPRESSION: 1. Small pleural effusions. 2. Bibasilar airspace opacities, consistent with atelectasis versus pneumonia. Reviewed, dictated and finalized at location L. NDS FOREMAN
[2023-03-04 08:59] LABS: Basophils Percent Auto 0.3 % (0.2-1.2); Eosinophils Percent Auto 0.1 % (0-4.4); Hematocrit 35.8 % (37.0-47.0); Hemoglobin 11.4 g/dL (12.0-15.0); Immature Granulocyte Absolute 0.09 K/mm3 (0.00-0.031); Immature Granulocyte Percent A 0.6 % (0-0.5); Lymphocytes Absolute Auto 1.13 K/mm3 (0.9-3.2); Lymphocytes Percent Auto 7.7 % (18.3-44.2); Mean Corpuscular HGB Conc 31.8 g/dl (32-36); Mean Corpuscular Hemoglobin 28.1 pg (26-34); Mean Corpuscular Volume 88.2 fl (80-100); Mean Platelet Volume 12.4 fl (7.4-10.4); Monocytes Absolute Auto 0.9 K/mm3 (0.1-0.6); Monocytes Percent Auto 6.4 % (2.6-8.5); Neutrophils Absolute Auto 12.4 K/mm3 (1.3-6.7); Neutrophils Percent Auto 84.9 % (45.5-73.1); Platelet Count Result 180 k/mm3 (150-375); Red Blood Count 4.06 M/mm3 (4.2-5.4); Red Cell Distribution Width 13.4 % (11.5-14.5); White Blood Count 14.6 K/mm3 (4.5-10.0)
[2023-03-04 09:03] LABS: Appearance Urine Clear (Clear); Bacteria Urine None Seen /hpf; Bilirubin Urine Negative (Negative); Blood Urine Trace (Negative); Color Urine Yellow (Yellow); Glucose Urine UA 3+ mg/dL (Negative); Ketones Urine Negative (Negative); Leukocyte Esterase Ur Negative LEU/UL (Negative); Nitrate Urine Negative (Negative); Non Pathogenic Casts 0-2; Protein Urine 2+ mg/dL (Negative); RBC Urine 0-2 /hpf (0-2); Specific Grav Ur 1.015 (1.001-1.035); Squamous Epithelial Cell Urine None seen /hpf (Few); WBC Urine 0-5 /hpf
[2023-03-04 09:04] LABS: Add Urine Microscopic? YES
[2023-03-04 09:09] LABS: Alanine Aminotransferase 28 U/L (6-35); Albumin Level 3.9 g/dL (3.5-5.1); Alkaline Phosphatase 178 U/L (38-126); Anion Gap 6 mmol/L (8-16); Aspartate Amino Transferase 33 U/L (14-36); Bilirubin,Total 1.1 mg/dL (0.2-1.3); Blood Urea Nitrogen 44 mg/dL (7-17); Calcium 9.1 mg/dL (8.4-10.2); Carbon Dioxide 34 mmol/L (22-30); Chloride 95 mmol/L (98-107); Estimated CRCL calculation 33 ml/min; Estimated Glomerular Filt Rate 33; Glucose 344 mg/dL (65-110); Lipase 27 U/L (23-300); Potassium 4.5 mmol/L (3.4-5.0); Sodium 135 mmol/L (137-145)
[2023-03-04] MEDS: ACETAMINOPHEN 500 MG TABLET 1000 MG PO ×2 (09:14→12:11)
[2023-03-04] MEDS: SODIUM CHLORIDE 0.9% IV 1,000 ML 999 ML IV CONT (09:14)
--- NOTE | 2023-03-04 09:28 | ED.NAVMDI ---
HPI - Nausea/Vomiting/Diarrhea General Chief complaint: Nausea/Vomiting/Diarrhea Stated complaint: N/V Time Seen by Provider: 03/04/23 08:40 Source: patient Mode of arrival: EMS Limitations: no limitations History of Present Illness HPI Narrative: 82o F with diabetes presents with nausea yesterday followed by vomiting that was clear non bloody non bilious. She has also been constipated status post 3 laxitives.She was incontinent of urine several times which is new. She received 4mg Zofran from EMS. POC gluc 331mg/dL. She did have a small bowel movement last night which was hard, black/green stoool. No blood. Denies abdominal pain. Possibly on iron. She lives with her 2 sons but no sick contacts. KAYLI was yesterday morning. Unknown if any fevers. Has a headache. Related Data Home Medications Medication Instructions Recorded Confirmed aspirin 81 mg tablet,delayed 81 mg PO QAM 11/03/19 03/04/23 release atorvastatin 80 mg tablet 80 mg PO HS 11/03/19 03/04/23 budesonide-formoterol HFA 160 2 puff inhalation PRN PRN 11/03/19 03/04/23 mcg-4.5 mcg/actuation aerosol Shortness Of Breath inhaler (Symbicort) clopidogrel 75 mg tablet 75 mg PO HS 11/03/19 03/04/23 furosemide 20 mg tablet 20 mg PO QAM 11/03/19 03/04/23 sertraline 100 mg tablet 100 mg PO QAM 11/03/19 03/04/23 albuterol sulfate 90 mcg/actuation 90 mcg inhalation Q4H PRN 09/14/22 03/04/23 aerosol inhaler Shortness Of Breath Or Wheezing amlodipine 10 mg tablet 10 mg PO DAILY 09/14/22 03/04/23 bisacodyl 5 mg tablet,delayed 10 mg PO DAILY PRN Constipation 09/14/22 03/04/23 release (Dulcolax (bisacodyl)) carvedilol 6.25 mg tablet 6.25 mg PO BID 09/14/22 03/04/23 ezetimibe 10 mg tablet 10 mg DAILY 09/14/22 03/04/23 fluticasone propionate 50 50 mcg intranasal DAILY 09/14/22 03/04/23 mcg/actuation nasal spray,suspension insulin aspart U-100 100 unit/mL 12 unit subcut TID 09/14/22 03/04/23 (3 mL) subcutaneous pen (Novolog FlexPen U-100 Insulin aspart) insulin glargine-yfgn 100 unit/mL 30 unit subcut HS 09/14/22 03/04/23 subcutaneous solution isosorbide mononitrate 30 mg 30 mg PO DAILY 09/14/22 03/04/23 tablet,extended release 24 hr loratadine 10 mg tablet 10 mg PO DAILY PRN Allergy Symptoms 09/14/22 03/04/23 meclizine 12.5 mg tablet 12.5 mg PO TID 09/14/22 03/04/23 methocarbamol 500 mg tablet 500 mg PO QID PRN Muscle Spasm 09/14/22 03/04/23 ondansetron 4 mg disintegrating 4 mg PO Q8H PRN Nausea 09/14/22 03/04/23 tablet oxybutynin chloride 5 mg tablet 5 mg PO DAILY 09/14/22 03/04/23 pantoprazole 40 mg tablet,delayed 40 mg PO BID 09/14/22 03/04/23 release tramadol 50 mg tablet 50 mg PO DAILY PRN Pain 09/14/22 03/04/23 psyllium 1 packet PO DAILY 03/04/23 03/04/23 Allergies Allergy/AdvReac Type Severity Reaction Status Date / Time codeine Allergy Nausea and Verified 01/17/23 12:41 Vomiting semaglutide [From Ozempic] Allergy Nausea and Verified 01/17/23 12:41 Vomiting gabapentin AdvReac Hallucinati Verified 01/17/23 12:41 ng PMFSH Past Medical History Medical History Anxiety Arthritis Bladder cancer (11/2019) Status post TURBT with pathology showing superficial papillary urothelial carcinoma, noninvasive and low-grade. Chronic back pain Chronic obstructive pulmonary disease Coronary artery disease Degenerative disc disease Depression with anxiety Hyperlipidemia Hypertension Insulin dependent type 2 diabetes mellitus Obstructive sleep apnea Intolerant to PAP therapy. Spinal stenosis Super obesity Surgical History Surgical History History of appendectomy History of bilateral cataract extraction History of bladder suspension procedure (11/2019) History of cholecystectomy History of coronary artery stent placement (09/2018) History of elbow surgery History of hemorrhoidectomy History of hysterectomy (1969) History of kn
[2023-03-04 10:01] LABS: Influenza A QL RT-PCR Negative (Negative); Influenza B QL RT-PCR Negative (Negative); SARS-CoV-2 RNA PCR Negative (Negative)
[2023-03-04] MEDS: MIRABEGRON 25 MG ER TABLET PO (12:12)
[2023-03-04] MEDS: LACTATED RINGERS 1,000 ML 999 ML IV CONT (13:27)
--- NOTE | 2023-03-04 13:31 | PC.NURSE ---
Pt to CT and xray
[2023-03-04 13:46] LABS: Creatine Kinase 75 U/L (30-135)
[2023-03-04] MEDS: MAGNESIUM CITRATE 300 ML BTL 150 ML PO (14:44)
[2023-03-04] MEDS: LACTATED RINGERS 1,000 ML 125 ML IV CONT ×2 (14:44→23:00)
[2023-03-04] MEDS: BISACODYL 10 MG SUPPOSITORY RECTAL (14:44)
--- NOTE | 2023-03-04 17:23 | PC.NURSE ---
Attempted to call for report, nurse unavailable, reported to call with questions, pt up via tech
--- NOTE | 2023-03-04 17:38 | ADMGEN ---
This patient, Verna Baltazar, was admitted to 3 [facility] Surg Room 315-02. Patient/family oriented to hospital policies and general routines including ID bracelet, bed and alarms, visiting hours, pain management, procedures, bathroom and other care routines, personal items, smoking policy, room service/diet, and visiting hours. Information on how to activate the Rapid Response Team has been discussed. Patient/Family are encouraged to report perceived risks to care and to ask questions if they do not understand what they are told or what they should do.
--- NOTE | 2023-03-04 20:12 | PM.IMHP ---
H&P: HPI History of Present Illness Date/Time: 03/04/23 20:12 Chief Complaint: Nausea/vomiting/diarrhea Narrative: This is an 82-year-old female past medical history significant for chronic kidney disease, bladder cancer, chronic back pain, chronic obstructive pulmonary disease, coronary artery disease, morbid obesity, hypertension, insulin-dependent diabetes mellitus, obstructive sleep apnea, spinal stenosis. Patient was brought to the emergency room due to abdominal pain, constipation, nausea, vomiting, diarrhea, patient is confused unable to give any history EXAMINATION: XR chest 2V DATE: 03/04/2023 13:47 INDICATION: Confusion TECHNIQUE: AP and lateral views of the chest are obtained. COMPARISON: 01/17/2023 FINDINGS: There are small pleural effusions. There are minimal airspace opacities of the lung bases. No pneumothorax is identified. The cardiomediastinal silhouette is stable. There are bridging osteophytes at multiple levels in the spine, consistent with diffuse idiopathic skeletal hyperostosis (DISH). Surgical changes are noted in the right upper quadrant. IMPRESSION: 1. Small pleural effusions. 2. Bibasilar airspace opacities, consistent with atelectasis versus pneumonia. EXAMINATION: CT brain wo con ? INDICATION: Confusion ? COMPARISON: None TECHNIQUE: Standard unenhanced head CT. The dose-length product (DLP) was 605.33 mGy-cm. The mA was adjusted according to patient size. Iterative reconstruction technique was employed. ? FINDINGS: No acute intraparenchymal hemorrhage. No evidence of mass lesion. No evidence of acute infarction. There is mild periventricular and subcortical hypodensity probably related to small vessel ischemic disease. There is mild prominence of the sulci and ventricles related to cerebral atrophy. Intracranial calcified cerebral atherosclerosis is noted. No extra-axial collections. No mass effect or midline shift. Changes in the globes are likely from ocular lens surgery. There is mild mucosal thickening of the paranasal sinuses. IMPRESSION: 1. No acute intracranial abnormality. 2. Age related findings. CT of the Abdomen and Pelvis: Indication: Nausea and vomiting Technique:? 2.5 mm axial scans were obtained through the abdomen and pelvis following intravenous administration of 100 cc of Omnipaque 350. Dose reduction technique was used on this scan by utilizing automated exposure control and iterative reconstruction technique. The dose-length product (DLP) was 1542.96 mGy-cm. COMPARISON: 01/17/2023 Findings:? Scans through the lung bases are unremarkable. The liver, spleen, pancreas, adrenals and kidneys are within normal limits. Cholecystectomy clips are present. There are atherosclerotic calcifications of the aorta.? No lymphadenopathy. No bowel obstruction or bowel wall thickening. There is no evidence to suggest acute appendicitis. Images through the pelvis were performed. Small amount of air present in the urinary bladder. There are probable small areas of nodularity at the urinary bladder wall anteriorly (axial images 167, 151). No pelvic mass seen. No ascites. Impression: Small areas of nodularity of the anterior urinary bladder wall, as detailed above. Urinary bladder neoplasm is not excluded. Consider cystoscopy. Small amount of air in urinary bladder is presumably iatrogenic. Correlate clinically. No other significant findings. Review of Systems Review of Systems: ROS unobtainable: Yes unobtainable due to mental status (Confusion) [facility] Past Medical History Medical History Anxiety Arthritis Bladder cancer (11/2019) Status post TURBT with pathology showing superficial papillary urothelial carcinoma, noninvasive and low-grade. Chronic back pain Chronic obstructive pulmonary disease Coronary artery disease Degenerative disc disease Depression with anxiety Hyperlipidemia Hypertension Insulin dependent type 2
[2023-03-05] VITALS (8 sets, daily range): BP systolic 146–162; BP diastolic 52–82; PULSE 60–75; RESP 14–20; TEMP 36.5–36.9; O2SAT 97–100
[2023-03-05 00:11] LABS: Glucose Point of Care 249 mg/dl (65-105)
[2023-03-05] MEDS: cefTRIAXone 2 GM/NS 100 ML 2 GM/100 ML BAG IVPB (03:52)
[2023-03-05] MEDS: AZITHROMYCIN 500 MG/NS 250 ML 500 MG/250 ML BAG 250 MG IVPB (04:22)
[2023-03-05 08:00] LABS: Glucose Point of Care 201 mg/dl (65-105)
[2023-03-05] MEDS: FLUTICASONE/SALMETEROL 115-21 MCG INHALER 1 PUFF 2 PUFF INHALATION ×2 (08:15→20:21)
[2023-03-05] MEDS: ISOSORBIDE MONONITRATE 30 MG TAB.ER.24H PO (08:29)
[2023-03-05] MEDS: LORATADINE 10 MG TABLET PO (08:29)
[2023-03-05] MEDS: PANTOPRAZOLE 40 MG TABLET PO ×2 (08:29→21:42)
[2023-03-05] MEDS: carvediloL 6.25 MG TABLET PO ×2 (08:29→21:42)
[2023-03-05] MEDS: MECLIZINE HCL 12.5 MG TABLET PO ×3 (08:29→18:20)
[2023-03-05] MEDS: ACETAMINOPHEN 325 MG TABLET 650 MG PO (08:29)
[2023-03-05] MEDS: TAMSULOSIN HCL 0.4 MG CAPSULE PO (08:29)
[2023-03-05] MEDS: ASPIRIN 81 MG ENTERIC TABLET PO (08:29)
[2023-03-05] MEDS: amLODIPine BESYLATE 5 MG TABLET 10 MG PO (08:29)
[2023-03-05] MEDS: FLUTICASONE PROPIONATE 0.05% NA SPR 16 GM BTL (*BKC) 2 SPRAY NASAL (08:32)
[2023-03-05] MEDS: oxyBUTYnin CHLORIDE XL 5 MG TAB.ER.24 PO (08:40)
[2023-03-05] MEDS: INSULIN ASPART (*BKC) 100 UNITS/ML 12 UNITS SUB-Q ×3 (08:41→18:20)
[2023-03-05] MEDS: LACTATED RINGERS 1,000 ML 125 ML IV CONT (08:43)
[2023-03-05 12:20] LABS: Glucose Point of Care 166 mg/dl (65-105)
--- NOTE | 2023-03-05 14:57 | PM.IMPN ---
Progress Note: A&P Assessment and Plan (1) Multifocal pneumonia: Code(s): J18.9 - Pneumonia, unspecified organism Status: Acute Assessment and Plan: Chest x-ray showing bibasilar airspace opacity consistent with atelectasis versus pneumonia and small pleural effusions. Started on Rocephin and Zithromax in the ED Patient does not currently have active cough, fever or any other symptoms of pneumonia. She as at baseline with her home O2 (2) CKD (chronic kidney disease): Code(s): N18.9 - Chronic kidney disease, unspecified Status: Acute Assessment and Plan: BUN and creatinine at patient's baseline Continue to monitor (3) Dehydration: Code(s): E86.0 - Dehydration Status: Resolved Assessment and Plan: IV fluids discontinued Dehydration resolved (4) Insulin dependent type 2 diabetes mellitus: Code(s): E11.9 - Type 2 diabetes mellitus without complications; Z79.4 - longterm (current) use of insulin Status: Acute Assessment and Plan: Resume home meds Accu-Cheks AC and HS (5) Obstructive sleep apnea: Code(s): G47.33 - Obstructive sleep apnea (adult) (pediatric) Status: Acute Assessment and Plan: CPAP at nighttime (6) Chronic obstructive pulmonary disease: Code(s): J44.9 - Chronic obstructive pulmonary disease, unspecified Status: Acute Assessment and Plan: Resume home meds Not actively wheezing Subjective Date/time seen: 03/05/23 14:57 Interval history: Patient doing well today. She states that she does not feel all right although she is very vague and not able to tell me exactly what she is feeling. She denies any shortness of breath, cough, chest pain, nausea, vomiting, weakness, fatigue. She is wheelchair-bound at baseline. Plan to do repeat labs in the morning if patient has improved will likely discharge home. Objective Data Vital Signs Vital Signs: Vital Signs - 24 hr 03/04/23 16:51 03/04/23 17:38 03/04/23 17:35 Temperature 97.6 F Pulse Rate 61 66 Respiratory Rate 18 16 Blood Pressure 138/71 153/60 H Pulse Oximetry 98 98 100 Oxygen Delivery Nasal Cannula Oxygen Flow Rate 2 03/04/23 22:00 03/05/23 06:00 03/04/23 20:00 Temperature 97.9 F 98.4 F Pulse Rate 70 73 Respiratory Rate 16 20 Blood Pressure 172/67 H 152/75 H Pulse Oximetry 100 100 Oxygen Delivery Nasal Cannula Oxygen Flow Rate 2 03/05/23 08:29 03/05/23 08:15 03/05/23 08:15 Temperature Pulse Rate 71 60 60 Respiratory Rate 18 18 Blood Pressure Pulse Oximetry 98 Oxygen Delivery Nasal Cannula Oxygen Flow Rate 2 03/05/23 08:30 03/05/23 13:49 Temperature Pulse Rate Respiratory Rate Blood Pressure Pulse Oximetry 98 Oxygen Delivery Nasal Cannula Nasal Cannula Oxygen Flow Rate 2 2 Intake/Output Intake/Output: Intake & Output 03/02/23 03/03/23 03/04/23 03/05/23 23:59 23:59 23:59 23:59 Intake Total 3000 1100 Output Total 10 400 Balance 2990 700 Meds/Results Medications: Active Medications Generic Name Dose Route Start Last Admin Trade Name Freq PRN Reason Stop Dose Admin Acetaminophen 650 mg 03/04/23 14:25 03/05/23 08:29 Acetaminophen 325 Mg Tablet PO 650 mg Q4H PRN Administration Mild Pain (1-3) or Fever Albuterol 2 puff 03/05/23 02:10 Albuterol Sulfate (*Sp) Aerosol 1 Puff INHALATION Q4HRT PRN Shortness Of Breath Or Wheezin Amlodipine Besylate 10 mg 03/05/23 09:00 03/05/23 08:29 Amlodipine Besylate 5 Mg Tablet PO 10 mg DAILY MAINE Administration Aspirin 81 mg 03/05/23 09:00 03/05/23 08:29 Aspirin 81 Mg Enteric Tablet PO 81 mg QAM [facility] Administration Atorvastatin Calcium 80 mg 03/05/23 21:00 Atorvastatin 40 Mg Tablet PO [facility] Carvedilol 6.25 mg 03/05/23 09:00 03/05/23 08:29 Carvedilol 6.25 Mg Tablet PO 6.25 mg Q12HR [facility] Administration Clopidogrel Bisulfa
--- NOTE | 2023-03-05 14:58 | PC.NURSE ---
This pt has 2 daughters. One daughter is POA and the other is not. The POA had the other daughter removed from the list of contacts for this pt. The pt is oriented and confirmed with this RN and the hot metal charger that it is okay to speak to the daughter that has been removed from her contact list via POA. This RN will call admissions to get the other daughter re-added to the pt's contact list.
[2023-03-05 16:29] LABS: Hematocrit 33.3 % (37.0-47.0); Hemoglobin 10.3 g/dL (12.0-15.0); Mean Corpuscular HGB Conc 30.9 g/dl (32-36); Mean Corpuscular Hemoglobin 28.4 pg (26-34); Mean Corpuscular Volume 91.7 fl (80-100); Mean Platelet Volume 11.9 fl (7.4-10.4); Platelet Count Result 166 k/mm3 (150-375); Red Blood Count 3.63 M/mm3 (4.2-5.4); Red Cell Distribution Width 13.6 % (11.5-14.5); White Blood Count 9.7 K/mm3 (4.5-10.0)
[2023-03-05 16:41] LABS: Anion Gap 7 mmol/L (8-16); Blood Urea Nitrogen 40 mg/dL (7-17); Calcium 8.6 mg/dL (8.4-10.2); Carbon Dioxide 31 mmol/L (22-30); Chloride 100 mmol/L (98-107); Estimated CRCL calculation 28 ml/min; Estimated Glomerular Filt Rate 27; Glucose 188 mg/dL (65-110); Potassium 4.3 mmol/L (3.4-5.0); Sodium 138 mmol/L (137-145)
[2023-03-05 17:02] LABS: Glucose Point of Care 176 mg/dl (65-105)
[2023-03-05 20:29] LABS: Glucose Point of Care 221 mg/dl (65-105)
[2023-03-05] MEDS: ATORVASTATIN 40 MG TABLET 80 MG PO (21:41)
[2023-03-05] MEDS: CLOPIDOGREL BISULFATE 75 MG TABLET PO (21:42)
[2023-03-05] MEDS: INSULIN GLARGINE (LANTUS) 1,000 UNITS/10 ML VIAL 30 UNITS SUB-Q (21:43)
[2023-03-06] VITALS (11 sets, daily range): BP systolic 133–182; BP diastolic 57–98; PULSE 62–89; RESP 18–22; TEMP 36.4–37.1; O2SAT 93–100
[2023-03-06] MEDS: LACTATED RINGERS 1,000 ML 125 ML IV CONT ×2 (00:04→08:15)
--- NOTE | 2023-03-06 01:58 | PC.NURSE ---
patient c/o feeling bloated, and states that she is shacky and thinks it is her nerves, 98.2 79 93% @ 2L NC 197/78, manual bp 182/98. Inquired about maalox and medication for anxiety for patient, called MD Magdaleno, 1 mg ativan IV push and maalox ordered for patient.
[2023-03-06] MEDS: MAG HYDROX/AL HYDROX/SIMETH 30 ML UDC PO (02:13)
[2023-03-06] MEDS: LORazepam INJ (*CRX) 2 MG/ML VIAL 1 MG IV PUSH (02:13)
[2023-03-06] MEDS: cefTRIAXone 2 GM/NS 100 ML 2 GM/100 ML BAG IVPB (02:56)
[2023-03-06] MEDS: AZITHROMYCIN 500 MG/NS 250 ML 500 MG/250 ML BAG 250 MG IVPB (03:51)
[2023-03-06 06:32] LABS: Hematocrit 34.9 % (37.0-47.0); Hemoglobin 10.9 g/dL (12.0-15.0); Mean Corpuscular HGB Conc 31.2 g/dl (32-36); Mean Corpuscular Hemoglobin 28.3 pg (26-34); Mean Corpuscular Volume 90.6 fl (80-100); Platelet Count Result 166 k/mm3 (150-375); Red Blood Count 3.85 M/mm3 (4.2-5.4); Red Cell Distribution Width 13.4 % (11.5-14.5); White Blood Count 16.9 K/mm3 (4.5-10.0)
[2023-03-06 06:50] LABS: Alanine Aminotransferase 22 U/L (6-35); Albumin Level 3.6 g/dL (3.5-5.1); Alkaline Phosphatase 176 U/L (38-126); Anion Gap 8 mmol/L (8-16); Aspartate Amino Transferase 30 U/L (14-36); Bilirubin,Total 0.6 mg/dL (0.2-1.3); Blood Urea Nitrogen 29 mg/dL (7-17); Calcium 8.9 mg/dL (8.4-10.2); Carbon Dioxide 31 mmol/L (22-30); Chloride 99 mmol/L (98-107); Estimated CRCL calculation 35 ml/min; Estimated Glomerular Filt Rate 36; Glucose 174 mg/dL (65-110); Potassium 4.3 mmol/L (3.4-5.0); Sodium 138 mmol/L (137-145)
[2023-03-06] MEDS: carvediloL 6.25 MG TABLET PO ×2 (08:09→21:25)
[2023-03-06] MEDS: ACETAMINOPHEN 325 MG TABLET 650 MG PO ×3 (08:09→16:22)
[2023-03-06] MEDS: ASPIRIN 81 MG ENTERIC TABLET PO (08:09)
[2023-03-06] MEDS: amLODIPine BESYLATE 5 MG TABLET 10 MG PO (08:09)
[2023-03-06] MEDS: MECLIZINE HCL 12.5 MG TABLET PO ×3 (08:10→16:22)
[2023-03-06] MEDS: PANTOPRAZOLE 40 MG TABLET PO ×2 (08:10→21:26)
[2023-03-06] MEDS: TAMSULOSIN HCL 0.4 MG CAPSULE PO (08:10)
[2023-03-06] MEDS: LORATADINE 10 MG TABLET PO (08:10)
[2023-03-06] MEDS: oxyBUTYnin CHLORIDE XL 5 MG TAB.ER.24 PO (08:10)
[2023-03-06] MEDS: ISOSORBIDE MONONITRATE 30 MG TAB.ER.24H PO (08:10)
[2023-03-06] MEDS: INSULIN ASPART (*BKC) 100 UNITS/ML 12 UNITS SUB-Q ×3 (08:13→16:22)
[2023-03-06] MEDS: FLUTICASONE PROPIONATE 0.05% NA SPR 16 GM BTL (*BKC) 2 SPRAY NASAL (08:13)
[2023-03-06 08:40] LABS: Glucose Point of Care 212 mg/dl (65-105)
[2023-03-06] MEDS: FLUTICASONE/SALMETEROL 115-21 MCG INHALER 1 PUFF 2 PUFF INHALATION ×2 (10:13→21:29)
[2023-03-06] MEDS: MAGNESIUM CITRATE 300 ML BTL 150 ML PO (11:20)
[2023-03-06 11:43] LABS: Glucose Point of Care 166 mg/dl (65-105)
[2023-03-06 12:49] LABS: Hematocrit 30.1 % (37.0-47.0); Hemoglobin 9.6 g/dL (12.0-15.0); Mean Corpuscular HGB Conc 31.9 g/dl (32-36); Mean Corpuscular Hemoglobin 28.4 pg (26-34); Mean Corpuscular Volume 89.1 fl (80-100); Mean Platelet Volume 12.3 fl (7.4-10.4); Platelet Count Result 163 k/mm3 (150-375); Red Blood Count 3.38 M/mm3 (4.2-5.4); Red Cell Distribution Width 13.3 % (11.5-14.5); White Blood Count 14.8 K/mm3 (4.5-10.0)
--- NOTE | 2023-03-06 13:58 | PM.IMPN ---
Progress Note: A&P Assessment and Plan (1) Multifocal pneumonia: Code(s): J18.9 - Pneumonia, unspecified organism Status: Acute Assessment and Plan: Chest x-ray showing bibasilar airspace opacity consistent with atelectasis versus pneumonia and small pleural effusions. Started on Rocephin and Zithromax in the ED Having some shortness of breath today that could be due to the fluids she is getting. Fluids discontinued. One time dose of Lasix given. She as at baseline with her home O2 (2) CKD (chronic kidney disease): Code(s): N18.9 - Chronic kidney disease, unspecified Status: Acute Assessment and Plan: BUN and creatinine at patient's baseline Continue to monitor (3) Dehydration: Code(s): E86.0 - Dehydration Status: Resolved Assessment and Plan: IV fluids discontinued Dehydration resolved (4) Insulin dependent type 2 diabetes mellitus: Code(s): E11.9 - Type 2 diabetes mellitus without complications; Z79.4 - shelter (current) use of insulin Status: Acute Assessment and Plan: Resume home meds Accu-Cheks AC and HS (5) Obstructive sleep apnea: Code(s): G47.33 - Obstructive sleep apnea (adult) (pediatric) Status: Acute Assessment and Plan: CPAP at nighttime (6) Chronic obstructive pulmonary disease: Code(s): J44.9 - Chronic obstructive pulmonary disease, unspecified Status: Acute Assessment and Plan: Resume home meds Not actively wheezing (7) Constipation: Code(s): K59.00 - Constipation, unspecified Status: Acute Assessment and Plan: MiraLax ordered t.i.d.. Mag citrate 150 mL x1 given today as well as a soapsuds enema. Subjective Date/time seen: 03/06/23 13:58 Interval history: Patient states that she is having some mild shortness of breath above her normal. Today she said that she has a cough but upon further questioning she states that she always has a cough. She is having some abdominal discomfort and states she has had a bowel movement quite some time. Gave her some magnesium citrate as well as soapsuds enema and patient had a small bowel movement afterwards. Started her on MiraLax t.i.d. and will consider another enema tomorrow. Hopeful for discharge tomorrow. Exam Narrative: GENERAL: Comfortable, no acute distress HENMT: moist mucous membranes EYES: EOM intact b/l NECK: no lymphadenopathy RESPIRATORY: some wheezing in the lower lung bases. CARDIO: RRR GI: soft, nontender, bowel sounds present SKIN: no rashes EXTREMITIES: no edema, redness or tenderness Objective Data Vital Signs Vital Signs: Vital Signs - 24 hr 03/05/23 14:00 03/05/23 20:25 03/05/23 21:42 Temperature 97.8 F Pulse Rate 63 69 75 Respiratory Rate 14 Blood Pressure 146/52 H Pulse Oximetry 97 100 Oxygen Delivery Nasal Cannula Oxygen Flow Rate 2 03/05/23 21:54 03/06/23 02:19 03/06/23 02:49 Temperature 97.7 F 98.2 F Pulse Rate 69 79 Respiratory Rate 20 18 Blood Pressure 162/82 H 182/98 H 168/82 H Pulse Oximetry 100 93 Oxygen Delivery Nasal Cannula Oxygen Flow Rate 2 03/06/23 06:00 03/06/23 08:09 03/06/23 08:00 Temperature 98.8 F Pulse Rate 89 84 Respiratory Rate 22 H Blood Pressure 168/87 H Pulse Oximetry 94 94 Oxygen Delivery Nasal Cannula Oxygen Flow Rate 2 03/06/23 10:14 Temperature Pulse Rate Respiratory Rate Blood Pressure Pulse Oximetry 96 Oxygen Delivery Nasal Cannula Oxygen Flow Rate 2 Intake/Output Intake/Output: Intake & Output 03/03/23 03/04/23 03/05/23 03/06/23 23:59 23:59 23:59 23:59 Intake Total 3000 3170 1900 Output Total 10 1100 775 Balance 2990 2070 1125 Meds/Results Medications: Active Medications Generic Name Dose Route Start Last Admin Trade Name Freq PRN Reason Stop Dose Admin Acetaminophen 650 mg 03/04/23 14:25 03/06/23 12:24 A
[2023-03-06] MEDS: FUROSEMIDE INJ 40 MG/4 ML VIAL IV PUSH (14:29)
[2023-03-06] MEDS: polyethylene glycoL 3350 17 GM POWD.PACK PO (16:22)
[2023-03-06 17:00] LABS: Glucose Point of Care 183 mg/dl (65-105)
[2023-03-06] MEDS: CLOPIDOGREL BISULFATE 75 MG TABLET PO (21:25)
[2023-03-06] MEDS: INSULIN GLARGINE (LANTUS) 1,000 UNITS/10 ML VIAL 30 UNITS SUB-Q (21:26)
[2023-03-06] MEDS: ATORVASTATIN 40 MG TABLET 80 MG PO (21:26)
[2023-03-06 21:43] LABS: Glucose Point of Care 119 mg/dl (65-105)
[2023-03-07] VITALS (8 sets, daily range): BP systolic 125–152; BP diastolic 46–74; PULSE 70–78; RESP 18–22; TEMP 35.7–36.7; O2SAT 93–96
[2023-03-07] MEDS: cefTRIAXone 2 GM/NS 100 ML 2 GM/100 ML BAG IVPB (02:50)
--- NOTE | 2023-03-07 02:55 | ECG_ITS ---
Measurements Intervals [place] Rate: 78 P: 71 ND: 166 QRS: 22 QRSD: 90 T: 70 QT: 373 QTc: 427 Interpretive Statements SINUS RHYTHM LOW QRS VOLTAGE IN PRECORDIAL LEADS [QRS DEFLECTION < 1.0 mV IN CHEST LEADS] COMPARED TO ECG 01/17/2023 15:32:43 NO SIGNIFICANT CHANGES Electronically Signed On 03-07-2023 17:04:09 [employer] by Gaby Kam M.D.
[2023-03-07 03:17] LABS: Glucose Point of Care 128 mg/dl (65-105)
[2023-03-07] MEDS: AZITHROMYCIN 500 MG/NS 250 ML 500 MG/250 ML BAG 250 MG IVPB (03:38)
[2023-03-07] MEDS: ONDANSETRON INJ 4 MG/2 ML VIAL IV PUSH (04:11)
[2023-03-07 06:44] LABS: Hematocrit 31.7 % (37.0-47.0); Hemoglobin 10.2 g/dL (12.0-15.0); Mean Corpuscular HGB Conc 32.2 g/dl (32-36); Mean Corpuscular Hemoglobin 28.7 pg (26-34); Mean Corpuscular Volume 89.3 fl (80-100); Mean Platelet Volume 11.8 fl (7.4-10.4); Platelet Count Result 153 k/mm3 (150-375); Red Blood Count 3.55 M/mm3 (4.2-5.4); Red Cell Distribution Width 13.4 % (11.5-14.5); White Blood Count 14.1 K/mm3 (4.5-10.0)
[2023-03-07] MEDS: amLODIPine BESYLATE 5 MG TABLET 10 MG PO (08:20)
[2023-03-07] MEDS: PANTOPRAZOLE 40 MG TABLET PO ×2 (08:20→21:01)
[2023-03-07 08:21] LABS: Glucose Point of Care 125 mg/dl (65-105)
[2023-03-07] MEDS: MECLIZINE HCL 12.5 MG TABLET PO ×3 (08:21→16:20)
[2023-03-07] MEDS: TAMSULOSIN HCL 0.4 MG CAPSULE PO (08:21)
[2023-03-07] MEDS: LORATADINE 10 MG TABLET PO (08:21)
[2023-03-07] MEDS: ACETAMINOPHEN 325 MG TABLET 650 MG PO ×2 (08:21→16:21)
[2023-03-07] MEDS: carvediloL 6.25 MG TABLET PO ×2 (08:21→21:01)
[2023-03-07] MEDS: ISOSORBIDE MONONITRATE 30 MG TAB.ER.24H PO (08:21)
[2023-03-07] MEDS: ASPIRIN 81 MG ENTERIC TABLET PO (08:21)
[2023-03-07] MEDS: FLUTICASONE PROPIONATE 0.05% NA SPR 16 GM BTL (*BKC) 2 SPRAY NASAL (08:22)
[2023-03-07] MEDS: oxyBUTYnin CHLORIDE XL 5 MG TAB.ER.24 PO (08:22)
[2023-03-07] MEDS: polyethylene glycoL 3350 17 GM POWD.PACK PO (08:22)
[2023-03-07] MEDS: FLUTICASONE/SALMETEROL 115-21 MCG INHALER 1 PUFF 2 PUFF INHALATION ×2 (09:25→21:55)
[2023-03-07 11:59] LABS: Glucose Point of Care 213 mg/dl (65-105)
[2023-03-07] MEDS: INSULIN ASPART (*BKC) 100 UNITS/ML 12 UNITS SUB-Q ×2 (12:53→16:20)
--- NOTE | 2023-03-07 12:57 | PM.IMPN ---
Progress Note: A&P Assessment and Plan (1) Multifocal pneumonia: Code(s): J18.9 - Pneumonia, unspecified organism Status: Acute Assessment and Plan: Chest x-ray showing bibasilar airspace opacity consistent with atelectasis versus pneumonia and small pleural effusions. Started on Rocephin and Zithromax in the ED Having some shortness of breath today that could be due to the fluids she is getting. Fluids discontinued. One time dose of Lasix given. She as at baseline with her home O2 (2) CKD (chronic kidney disease): Code(s): N18.9 - Chronic kidney disease, unspecified Status: Acute Assessment and Plan: BUN and creatinine at patient's baseline Continue to monitor (3) Dehydration: Code(s): E86.0 - Dehydration Status: Resolved Assessment and Plan: IV fluids discontinued Dehydration resolved (4) Insulin dependent type 2 diabetes mellitus: Code(s): E11.9 - Type 2 diabetes mellitus without complications; Z79.4 - shelter (current) use of insulin Status: Acute Assessment and Plan: Resume home meds Accu-Cheks AC and HS (5) Obstructive sleep apnea: Code(s): G47.33 - Obstructive sleep apnea (adult) (pediatric) Status: Acute Assessment and Plan: CPAP at nighttime (6) Chronic obstructive pulmonary disease: Code(s): J44.9 - Chronic obstructive pulmonary disease, unspecified Status: Acute Assessment and Plan: Resume home meds Not actively wheezing (7) Constipation: Code(s): K59.00 - Constipation, unspecified Status: Acute Assessment and Plan: MiraLax ordered t.i.d.. 03/06 Mag citrate 150 mL x1 given today as well as a soapsuds enema. small bowel movement resulted 03/07 magnesium citrate 350 mL today and Fleet enema given. Subjective Date/time seen: 03/07/23 12:57 Interval history: Patient states she is tired today. Her breath sounds do sound much better. She still having a cough. Remains on 2 L which is a home setting. Patient has small bowel movement yesterday. Will attempt another enema today. Patient denies shortness of breath or difficulty breathing, chest pain, nausea, vomiting or dysuria. She does have increased respirations and but appears to be labored breathing when she moves about the bed but does not complain of anything. Exam Narrative: GENERAL: Comfortable, no acute distress HENMT: moist mucous membranes EYES: EOM intact b/l NECK: no lymphadenopathy RESPIRATORY: Distant breath sounds but clear to auscultation CARDIO: RRR GI: soft, nontender, bowel sounds present SKIN: no rashes EXTREMITIES: no edema, redness or tenderness Objective Data Vital Signs Vital Signs: Vital Signs - 24 hr 03/06/23 14:00 03/06/23 21:25 03/06/23 21:31 Temperature 97.6 F Pulse Rate 71 68 62 Respiratory Rate 20 18 Blood Pressure 133/57 L Pulse Oximetry 96 Oxygen Delivery Oxygen Flow Rate 03/06/23 21:31 03/06/23 22:00 03/06/23 20:00 Temperature 97.6 F Pulse Rate 64 68 Respiratory Rate 20 Blood Pressure 149/61 H Pulse Oximetry 100 98 96 Oxygen Delivery Nasal Cannula Nasal Cannula Oxygen Flow Rate 2 2 03/07/23 05:54 03/07/23 08:21 03/07/23 09:25 Temperature 98.1 F Pulse Rate 78 76 Respiratory Rate 22 H Blood Pressure 152/68 H Pulse Oximetry 93 95 Oxygen Delivery Nasal Cannula Oxygen Flow Rate 2 03/07/23 08:20 Temperature Pulse Rate Respiratory Rate Blood Pressure Pulse Oximetry 95 Oxygen Delivery Nasal Cannula Oxygen Flow Rate 2 Intake/Output Intake/Output: Intake & Output 03/04/23 03/05/23 03/06/23 03/07/23 23:59 23:59 23:59 23:59 Intake Total 3000 3170 2350 668 Output Total 10 1100 2025 700 Balance 2990 2070 325 -32 Meds/Results Medications: Active Medications Generic Name Dose Route Start Last Admin Trade Name Freq PRN Reason Stop Dose Admin Acet
[2023-03-07 13:12] LABS: Alanine Aminotransferase 28 U/L (6-35); Albumin Level 3.6 g/dL (3.5-5.1); Alkaline Phosphatase 173 U/L (38-126); Anion Gap 9 mmol/L (8-16); Aspartate Amino Transferase 35 U/L (14-36); Bilirubin,Total 0.8 mg/dL (0.2-1.3); Blood Urea Nitrogen 31 mg/dL (7-17); Calcium 8.8 mg/dL (8.4-10.2); Carbon Dioxide 31 mmol/L (22-30); Chloride 98 mmol/L (98-107); Estimated CRCL calculation 33 ml/min; Estimated Glomerular Filt Rate 33; Glucose 124 mg/dL (65-110); Potassium 4.4 mmol/L (3.4-5.0); Sodium 138 mmol/L (137-145)
[2023-03-07 16:43] LABS: Glucose Point of Care 157 mg/dl (65-105)
[2023-03-07] MEDS: CLOPIDOGREL BISULFATE 75 MG TABLET PO (21:01)
[2023-03-07] MEDS: INSULIN GLARGINE (LANTUS) 1,000 UNITS/10 ML VIAL 30 UNITS SUB-Q (21:01)
[2023-03-07] MEDS: ATORVASTATIN 40 MG TABLET 80 MG PO (21:01)
[2023-03-07 21:16] LABS: Glucose Point of Care 195 mg/dl (65-105)
[2023-03-08] VITALS (9 sets, daily range): BP systolic 130–176; BP diastolic 40–85; PULSE 67–78; RESP 18–20; TEMP 36.6–36.8; O2SAT 95–98
[2023-03-08] MEDS: cefTRIAXone 2 GM/NS 100 ML 2 GM/100 ML BAG IVPB (02:18)
[2023-03-08] MEDS: AZITHROMYCIN 500 MG/NS 250 ML 500 MG/250 ML BAG 250 MG IVPB (02:57)
[2023-03-08 06:33] LABS: Hematocrit 28.5 % (37.0-47.0); Hemoglobin 8.8 g/dL (12.0-15.0); Mean Corpuscular HGB Conc 30.9 g/dl (32-36); Mean Corpuscular Hemoglobin 28.3 pg (26-34); Mean Corpuscular Volume 91.6 fl (80-100); Mean Platelet Volume 12.3 fl (7.4-10.4); Platelet Count Result 149 k/mm3 (150-375); Red Blood Count 3.11 M/mm3 (4.2-5.4); Red Cell Distribution Width 13.5 % (11.5-14.5); White Blood Count 11.2 K/mm3 (4.5-10.0)
[2023-03-08 06:51] LABS: Alanine Aminotransferase 22 U/L (6-35); Albumin Level 3.2 g/dL (3.5-5.1); Alkaline Phosphatase 166 U/L (38-126); Anion Gap 4 mmol/L (8-16); Aspartate Amino Transferase 22 U/L (14-36); Bilirubin,Total 0.6 mg/dL (0.2-1.3); Blood Urea Nitrogen 34 mg/dL (7-17); Calcium 8.1 mg/dL (8.4-10.2); Carbon Dioxide 33 mmol/L (22-30); Chloride 98 mmol/L (98-107); Estimated CRCL calculation 31 ml/min; Estimated Glomerular Filt Rate 31; Glucose 186 mg/dL (65-110); Potassium 4.3 mmol/L (3.4-5.0); Sodium 135 mmol/L (137-145)
[2023-03-08 07:49] LABS: Glucose Point of Care 182 mg/dl (65-105)
[2023-03-08] MEDS: ASPIRIN 81 MG ENTERIC TABLET PO (07:57)
[2023-03-08] MEDS: PANTOPRAZOLE 40 MG TABLET PO ×2 (07:58→21:01)
[2023-03-08] MEDS: polyethylene glycoL 3350 17 GM POWD.PACK PO (07:58)
[2023-03-08] MEDS: ISOSORBIDE MONONITRATE 30 MG TAB.ER.24H PO (07:58)
[2023-03-08] MEDS: amLODIPine BESYLATE 5 MG TABLET 10 MG PO (07:58)
[2023-03-08] MEDS: oxyBUTYnin CHLORIDE XL 5 MG TAB.ER.24 PO (07:58)
[2023-03-08] MEDS: MECLIZINE HCL 12.5 MG TABLET PO ×3 (07:58→16:34)
[2023-03-08] MEDS: carvediloL 6.25 MG TABLET PO ×2 (07:58→21:01)
[2023-03-08] MEDS: INSULIN ASPART (*BKC) 100 UNITS/ML 12 UNITS SUB-Q ×2 (07:58→12:04)
[2023-03-08] MEDS: TAMSULOSIN HCL 0.4 MG CAPSULE PO (07:58)
[2023-03-08] MEDS: FLUTICASONE PROPIONATE 0.05% NA SPR 16 GM BTL (*BKC) 2 SPRAY NASAL (07:59)
[2023-03-08 11:23] LABS: NT Pro B Type Natriuretic Pept 1640 pg/mL (19.9-100)
[2023-03-08 11:35] LABS: Glucose Point of Care 136 mg/dl (65-105)
--- NOTE | 2023-03-08 12:54 | PM.IMPN ---
Progress Note: A&P Assessment and Plan (1) Multifocal pneumonia: Code(s): J18.9 - Pneumonia, unspecified organism Status: Acute Assessment and Plan: Chest x-ray showing bibasilar airspace opacity consistent with atelectasis versus pneumonia and small pleural effusions. Started on Rocephin and Zithromax in the ED Having some shortness of breath today that could be due to the fluids she is getting. Fluids discontinued. One time dose of Lasix given. She as at baseline with her home O2 (2) CKD (chronic kidney disease): Code(s): N18.9 - Chronic kidney disease, unspecified Status: Acute Assessment and Plan: BUN and creatinine at patient's baseline Continue to monitor (3) Dehydration: Code(s): E86.0 - Dehydration Status: Resolved Assessment and Plan: IV fluids discontinued Dehydration resolved (4) Insulin dependent type 2 diabetes mellitus: Code(s): E11.9 - Type 2 diabetes mellitus without complications; Z79.4 - senior care (current) use of insulin Status: Acute Assessment and Plan: Resume home meds Accu-Cheks AC and HS (5) Obstructive sleep apnea: Code(s): G47.33 - Obstructive sleep apnea (adult) (pediatric) Status: Acute Assessment and Plan: CPAP at nighttime (6) Chronic obstructive pulmonary disease: Code(s): J44.9 - Chronic obstructive pulmonary disease, unspecified Status: Acute Assessment and Plan: Resume home meds Not actively wheezing (7) Constipation: Code(s): K59.00 - Constipation, unspecified Status: Acute Assessment and Plan: MiraLax ordered t.i.d.. 03/06 Mag citrate 150 mL x1 given today as well as a soapsuds enema. small bowel movement resulted 03/07 magnesium citrate 350 mL today and Fleet enema given. Subjective Date/time seen: 03/08/23 12:54 Interval history: patient states that she is having some increased shortness of breath today states that she feels as if her abdomen is distended and is causing difficulty breathing due to it. She does have some abdominal discomfort associated with it. Will get a CT of the abdomen. Did get a BNP to evaluate for CHF but it is within normal range of patient's age. Exam Narrative: GENERAL: Comfortable, no acute distress HENMT: moist mucous membranes EYES: EOM intact b/l NECK: no lymphadenopathy RESPIRATORY: Distant breath sounds but clear to auscultation CARDIO: RRR GI: soft, distended, mildly tender, bowel sounds present SKIN: no rashes EXTREMITIES: no edema, redness or tenderness Objective Data Vital Signs Vital Signs: Vital Signs - 24 hr 03/07/23 14:00 03/07/23 21:01 03/07/23 21:56 Temperature 97.8 F Pulse Rate 70 71 Respiratory Rate 22 H Blood Pressure 125/46 L Pulse Oximetry 96 95 Oxygen Delivery Nasal Cannula Oxygen Flow Rate 2 03/07/23 20:35 03/08/23 07:58 03/08/23 05:25 Temperature 96.2 F L 98 F Pulse Rate 71 70 74 Respiratory Rate 18 20 Blood Pressure 142/74 H 153/57 H Pulse Oximetry 96 96 Oxygen Delivery Oxygen Flow Rate 03/08/23 08:00 Temperature Pulse Rate Respiratory Rate Blood Pressure Pulse Oximetry 96 Oxygen Delivery Nasal Cannula Oxygen Flow Rate 2 Intake/Output Intake/Output: Intake & Output 03/05/23 03/06/23 03/07/23 03/08/23 23:59 23:59 23:59 23:59 Intake Total 3170 2350 908 888 Output Total 1100 2025 1050 450 Balance 2070 325 -142 438 Meds/Results Medications: Active Medications Generic Name Dose Route Start Last Admin Trade Name Freq PRN Reason Stop Dose Admin Acetaminophen 650 mg 03/04/23 14:25 03/07/23 16:21 Acetaminophen 325 Mg Tablet PO 650 mg Q4H PRN Administration Mild Pain (1-3) or Fever Albuterol 2 puff 03/05/23 02:10 Albuterol Sulfate (*Sp) Aerosol 1 Puff INHALATION Q4HRT PRN Shortness Of Breath Or Wheezin Amlodipine Besylate 10
[2023-03-08 16:29] LABS: Glucose Point of Care 95 mg/dl (65-105)
[2023-03-08] MEDS: FLUTICASONE/SALMETEROL 115-21 MCG INHALER 1 PUFF 2 PUFF INHALATION (19:36)
[2023-03-08] MEDS: CLOPIDOGREL BISULFATE 75 MG TABLET PO (21:01)
[2023-03-08] MEDS: ATORVASTATIN 40 MG TABLET 80 MG PO (21:01)
[2023-03-08] MEDS: LORATADINE 10 MG TABLET PO (21:01)
[2023-03-08 21:15] LABS: Glucose Point of Care 154 mg/dl (65-105)
[2023-03-08] MEDS: INSULIN GLARGINE (LANTUS) 1,000 UNITS/10 ML VIAL 30 UNITS SUB-Q (21:29)
[2023-03-09] VITALS (10 sets, daily range): BP systolic 144–153; BP diastolic 65–69; PULSE 70–79; RESP 16–22; TEMP 36.7–36.9; O2SAT 83–98
[2023-03-09] MEDS: cefTRIAXone 2 GM/NS 100 ML 2 GM/100 ML BAG IVPB (02:35)
[2023-03-09] MEDS: AZITHROMYCIN 500 MG/NS 250 ML 500 MG/250 ML BAG 250 MG IVPB (03:08)
[2023-03-09] MEDS: SODIUM CHLORIDE 0.9% IV 250 ML (03:10)
[2023-03-09 07:22] LABS: Glucose Point of Care 128 mg/dl (65-105)
[2023-03-09 08:36] LABS: Hemoglobin 8.4 g/dL (12.0-15.0); Mean Corpuscular HGB Conc 31.1 g/dl (32-36); Mean Corpuscular Hemoglobin 28.7 pg (26-34); Mean Corpuscular Volume 92.2 fl (80-100); Mean Platelet Volume 11.7 fl (7.4-10.4); Platelet Count Result 167 k/mm3 (150-375); Red Blood Count 2.93 M/mm3 (4.2-5.4); Red Cell Distribution Width 13.3 % (11.5-14.5); White Blood Count 9.3 K/mm3 (4.5-10.0)
[2023-03-09 08:48] LABS: Alanine Aminotransferase 18 U/L (6-35); Albumin Level 3.1 g/dL (3.5-5.1); Alkaline Phosphatase 176 U/L (38-126); Anion Gap 6 mmol/L (8-16); Aspartate Amino Transferase 22 U/L (14-36); Bilirubin,Total 0.6 mg/dL (0.2-1.3); Blood Urea Nitrogen 30 mg/dL (7-17); Calcium 8.2 mg/dL (8.4-10.2); Carbon Dioxide 34 mmol/L (22-30); Chloride 98 mmol/L (98-107); Estimated CRCL calculation 34 ml/min; Estimated Glomerular Filt Rate 33; Glucose 122 mg/dL (65-110); Potassium 4.6 mmol/L (3.4-5.0); Sodium 138 mmol/L (137-145)
[2023-03-09] MEDS: FLUTICASONE/SALMETEROL 115-21 MCG INHALER 1 PUFF 2 PUFF INHALATION (08:54)
[2023-03-09] MEDS: polyethylene glycoL 3350 17 GM POWD.PACK PO (08:56)
[2023-03-09] MEDS: FLUTICASONE PROPIONATE 0.05% NA SPR 16 GM BTL (*BKC) 2 SPRAY NASAL (09:00)
[2023-03-09] MEDS: ISOSORBIDE MONONITRATE 30 MG TAB.ER.24H PO (09:01)
[2023-03-09] MEDS: carvediloL 6.25 MG TABLET PO (09:01)
[2023-03-09] MEDS: TAMSULOSIN HCL 0.4 MG CAPSULE PO (09:03)
[2023-03-09] MEDS: MECLIZINE HCL 12.5 MG TABLET PO ×2 (09:03→11:59)
[2023-03-09] MEDS: amLODIPine BESYLATE 5 MG TABLET 10 MG PO (09:03)
[2023-03-09] MEDS: oxyBUTYnin CHLORIDE XL 5 MG TAB.ER.24 PO (09:03)
[2023-03-09] MEDS: PANTOPRAZOLE 40 MG TABLET PO (09:03)
[2023-03-09] MEDS: ASPIRIN 81 MG ENTERIC TABLET PO (09:03)
--- NOTE | 2023-03-09 09:30 | PM.DS ---
DS: Admitting Diagnosis Discharge Date 03/09/23 Admitting Diagnosis Pneumonia DS: Discharge Diagnosis Discharge Diagnosis (1) Multifocal pneumonia: Code(s): J18.9 - Pneumonia, unspecified organism Status: Acute Assessment and Plan: Chest x-ray showing bibasilar airspace opacity consistent with atelectasis versus pneumonia and small pleural effusions. Started on Rocephin and Zithromax in the ED Having some shortness of breath today that could be due to the fluids she is getting. Fluids discontinued. One time dose of Lasix given. She as at baseline with her home O2 (2) CKD (chronic kidney disease): Code(s): N18.9 - Chronic kidney disease, unspecified Status: Acute Assessment and Plan: BUN and creatinine at patient's baseline Continue to monitor (3) Dehydration: Code(s): E86.0 - Dehydration Status: Resolved Assessment and Plan: IV fluids discontinued Dehydration resolved (4) Insulin dependent type 2 diabetes mellitus: Code(s): E11.9 - Type 2 diabetes mellitus without complications; Z79.4 - residential (current) use of insulin Status: Acute Assessment and Plan: Resume home meds Accu-Cheks AC and HS (5) Obstructive sleep apnea: Code(s): G47.33 - Obstructive sleep apnea (adult) (pediatric) Status: Acute Assessment and Plan: CPAP at nighttime (6) Chronic obstructive pulmonary disease: Code(s): J44.9 - Chronic obstructive pulmonary disease, unspecified Status: Acute Assessment and Plan: Resume home meds Not actively wheezing (7) Constipation: Code(s): K59.00 - Constipation, unspecified Status: Acute Assessment and Plan: MiraLax ordered t.i.d.. 03/06 Mag citrate 150 mL x1 given today as well as a soapsuds enema. small bowel movement resulted 03/07 magnesium citrate 350 mL today and Fleet enema given. DS: Summary Hospital Course Hospital Course: This is a 82-year-old female with past medical history significant for CKD, bladder cancer, chronic back pain, COPD, CAD, morbid obesity, hypertension, insulin-dependent diabetes, NIDA spinal stenosis of breath to the ED on 03/04/2023 due to abdominal pain, constipation nausea vomiting. chest x-ray showed atelectasis versus pneumonia. CT scan of the abdomen and pelvis showed no acute findings. Patient was started on antibiotics for pneumonia. Patient on 2 L of oxygen at baseline. She remained to 2 L of oxygen during hospital stay. She was started on Rocephin and azithromycin. She did have elevated BUN and creatinine on arrival although looking back through her chart this appeared to be baseline for her. Patient improved during hospital stay. Labs also improved. Patient continues to have some mild shortness of breath although this appears to be her baseline. She was checked for CHF exacerbation although BNP was within range for patient's age. Her lungs are clear on auscultation although they are distant. Patient states that she has been diagnosed with obstructive sleep apnea but no longer uses her CPAP. She does not have 1 at home any longer. Advised that she follow-up with her primary care provider in order to get another evaluation for a CPAP at home. Home oxygen evaluation done prior to discharge. Her labs and vital signs are stable and she is medically clear for discharge at this time. Time Spent with Patient Time attestation: Total time spent providing and/or coordinating discharge services: Exam Narrative: GENERAL: Comfortable, no acute distress HENMT: moist mucous membranes EYES: EOM intact b/l NECK: no lymphadenopathy RESPIRATORY: Distant breath sounds but clear to auscultation CARDIO: RRR GI: soft, distended, mildly tender, bowel sounds present SKIN: no rashes EXTREMITIES: no edema, redness or tenderness DS: Data Data Completed and Pending Labs on day of discharge: Labs
[2023-03-09] MEDS: ALBUTEROL SULFATE (*SP) AEROSOL 1 PUFF 2 PUFF INHALATION (09:31)
[2023-03-09 11:26] LABS: Glucose Point of Care 240 mg/dl (65-105)
[2023-03-09] MEDS: INSULIN ASPART (*BKC) 100 UNITS/ML 12 UNITS SUB-Q (11:59)
--- NOTE | 2023-03-09 16:09 | HOMEO2EVAL ---
Evaluation was performed at [facility] Home Oxygen Evaluation RC: Home Oxygen (O2) Evaluation Start: 03/09/23 10:46 Freq: ONCE Status: Active Protocol: RPE Activity Type Activity Date Activity User E-sign Co-sign Detail Recorded Client Recorded Date Recorded By Document 03/09/23 15:39 KA [id number] 03/09/23 15:48 KAG Document 03/09/23 15:40 KAG [id number] 03/09/23 15:49 KAG Document 03/09/23 15:42 KAG [id number] 03/09/23 15:49 KAG Document 03/09/23 15:44 KA [id number] 03/09/23 15:51 KAG 03/09/23 03/09/23 03/09/23 15:39 15:40 15:42 Home O2 Evaluation [Oxygen] -Test Phase Resting Resting Resting -Oxygen Delivery Room Air Nasal Cannula Nasal Cannula -Oxygen Flow Rate (L/min) 1 2 [Pulse Oximetry] -Pulse Oximetry (90-100 %) 83 L 87 L 93 [Pulse Rate] -Pulse Rate (60-100 beats/min) 79 77 76 [Comments] -Home Oxygen Evaluation Comments Placed pt on 1L placed pt on due to low baseline SpO2. settings of 2L due to low SpO2 levels. [Charges] -Evaluation Charges O2 Evaluation by RC 03/09/23 15:44 Home O2 Evaluation [Oxygen] -Test Phase Exercise -Oxygen Delivery Nasal Cannula -Oxygen Flow Rate (L/min) 2 [Pulse Oximetry] -Pulse Oximetry (90-100 %) 94 [Pulse Rate] -Pulse Rate (60-100 beats/min) 75 [Comments] -Home Oxygen Evaluation Comments Pt marched in placed while sitting on the edge of the bed due to limited ambulation and is baseline at home also. Tolerated excerise well on 2L. [Charges] -Evaluation Charges
--- NOTE | 2023-03-09 16:09 | PCRCNOTE ---
This patient was evaluated for home O2 set-up, pt is already a patient of [facility] with a baseline of 2L with rest and activity. Pt was still staying within limits of the 2 liters of oxygen with rest and activity. [facility] alexander was contacted with the updated walk and RN was informed to let family know to bring in a oxygen tank for pt for discharge.
== END 2023-03-09 17:05 | disposition home or self-care (01) | DRG 194 ==
LOC: ANHED 11:59 → ANH2MED 15:22 → ANH3MEDSUR 16:55
PROVIDERS: Admitting Provider General Practice; Emergency Provider Student in an Organized Health Care Education/Training Program; Visit Provider Internal Medicine Critical Care Medicine
DX: J18.9 Pneumonia, unspecified organism (principal); J44.0 Chronic obstructive pulmonary disease with (acute) lower respiratory infection; Z68.43 Body mass index [BMI] 50.0-59.9, adult; J90 Pleural effusion, not elsewhere classified; J98.11 Atelectasis; Z20.822 Contact with and (suspected) exposure to COVID-19; N18.9 Chronic kidney disease, unspecified; E86.0 Dehydration; E11.22 Type 2 diabetes mellitus with diabetic chronic kidney disease; G47.33 Obstructive sleep apnea (adult) (pediatric); K59.00 Constipation, unspecified; I25.10 Atherosclerotic heart disease of native coronary artery without angina pectoris; E11.65 Type 2 diabetes mellitus with hyperglycemia; E66.01 Morbid (severe) obesity due to excess calories; R32 Unspecified urinary incontinence; M48.00 Spinal stenosis, site unspecified; Z79.4 Long term (current) use of insulin; Z79.82 Long term (current) use of aspirin; Z85.51 Personal history of malignant neoplasm of bladder; Z90.49 Acquired absence of other specified parts of digestive tract; Z95.5 Presence of coronary angioplasty implant and graft; Z90.710 Acquired absence of both cervix and uterus; Z87.891 Personal history of nicotine dependence
CPT/HCPCS: 36415; 70450; 71046; 74176; 74177; 80048; 80053; 81001; 82550; 82948; 83690; 83880; 85025; 85027; 87070; 87205; 87636; 93005; 94618; 94640; 96360; 96361; 97161; 99285; A9270; G0378; J0456; J0696; J1815; J1940; J2060; J2405; J7030; J7050; J7120; Q9967

== ENCOUNTER 2024-01-28 16:09 | Emergency (ER) | payer MEDICARE, MEDICAID, SELFPAY ==
--- NOTE | ~2024-01-28 | CT_ITS ---
EXAMINATION: CT brain wo con DATE: 01/28/2024 17:13 INDICATION: Headache. TECHNIQUE: Computed tomography (CT) of the head was performed without intravenous contrast. The mA wa s adjusted according to patient size. Iterative reconstruction technique was employed. The dose-lengt h product was 605.33 mGy-cm. COMPARISON: Head CT 03/04/2023 FINDINGS: There are scattered areas of low attenuation in the cerebral white matter, which is within normal limits for the patient's age. There is no intracranial hemorrhage, acute infarction, or abnorm al intracranial mass lesion. The ventricles are normal in size. There are likely changes of ocular le ns replacement surgeries. There is mucosal thickening in the paranasal sinuses. There is a trace righ t mastoid effusion. IMPRESSION: 1. Normal aging brain. Reviewed, dictated and finalized at location A. T [employer] IMPRESSION: 1. Normal aging brain.
[2024-01-28 16:21] VITALS: BP 147/62; PULSE 60; RESP 16; TEMP 36.7; O2SAT 97
--- NOTE | 2024-01-28 16:24 | ED_ITS ---
HPI - Headache General Chief Complaint: Headache <Angelica Ruth PA-C - Last Filed: 01/28/24 16:25> Stated Complaint: headache <Angelica Ruth PA-C - Last Filed: 01/28/24 16:25> Time Seen by Provider: 01/28/24 16:24 <Angelica Ruth PA-C - Last Filed: 01/28/24 16:25> Focused HPI: This is a 83 year old female that presents to the ER for a headache ongoing since yesterday. No recent injury or trauma. Reports the headache is on the left side of her head. Reports blurry vision in this eye. She does not usually get headaches. She took Tylenol today with little relief. GENERAL: Elderly, well-nourished, and in no acute distress. HEAD: Normocephalic, atraumatic. CHEST: Clear to auscultation. ?No respiratory distress. HEART: Regular rate and rhythm.? NEURO: ?Alert and oriented x3. Patient screened in triage and initial orders placed.? ?Additional care and disposition to be based upon?diagnostic testing and treatment. <Angelica Ruth PA-C - Last Filed: 01/28/24 16:25> History of Present Illness HPI Narrative: 83-year-old female presenting with several hours of a headache. Took some Tylenol with minimal relief. States that she used to get migraines but has not had 1 in many years. No injuries or trauma. No numbness or weakness. No fevers. Feels nauseous but has not vomited. <Orin Song MD - Last Filed: 01/28/24 21:43> Related Data Home Medications: Home Medications Medication Instructions Recorded Confirmed aspirin 81 mg tablet,delayed 81 mg PO QAM 11/03/19 03/04/23 release atorvastatin 80 mg tablet 80 mg PO HS 11/03/19 03/04/23 budesonide-formoterol HFA 160 2 puff inhalation PRN PRN 11/03/19 03/04/23 mcg-4.5 mcg/actuation aerosol Shortness Of Breath inhaler (Symbicort) clopidogrel 75 mg tablet 75 mg PO HS 11/03/19 03/04/23 furosemide 20 mg tablet 20 mg PO QAM 11/03/19 03/04/23 sertraline 100 mg tablet 100 mg PO QAM 11/03/19 03/04/23 albuterol sulfate 90 mcg/actuation 90 mcg inhalation Q4H PRN 09/14/22 03/04/23 aerosol inhaler Shortness Of Breath Or Wheezing amlodipine 10 mg tablet 10 mg PO DAILY 09/14/22 03/04/23 bisacodyl 5 mg tablet,delayed 10 mg PO DAILY PRN Constipation 09/14/22 03/04/23 release (Dulcolax (bisacodyl)) carvedilol 6.25 mg tablet 6.25 mg PO BID 09/14/22 03/04/23 ezetimibe 10 mg tablet 10 mg DAILY 09/14/22 03/04/23 fluticasone propionate 50 50 mcg intranasal DAILY 09/14/22 03/04/23 mcg/actuation nasal spray,suspension insulin aspart U-100 100 unit/mL 12 unit subcut TID 09/14/22 03/04/23 (3 mL) subcutaneous pen (Novolog FlexPen U-100 Insulin aspart) insulin glargine-yfgn 100 unit/mL 30 unit subcut HS 09/14/22 03/04/23 subcutaneous solution isosorbide mononitrate 30 mg 30 mg PO DAILY 09/14/22 03/04/23 tablet,extended release 24 hr loratadine 10 mg tablet 10 mg PO DAILY PRN Allergy Symptoms 09/14/22 03/04/23 meclizine 12.5 mg tablet 12.5 mg PO TID 09/14/22 03/04/23 methocarbamol 500 mg tablet 500 mg PO QID PRN Muscle Spasm 09/14/22 03/04/23 ondansetron 4 mg disintegrating 4 mg PO Q8H PRN Nausea 09/14/22 03/04/23 tablet oxybutynin chloride 5 mg tablet 5 mg PO DAILY 09/14/22 03/04/23 pantoprazole 40 mg tablet,delayed 40 mg PO BID 09/14/22 03/04/23 release tramadol 50 mg tablet 50 mg PO DAILY PRN Pain 09/14/22 03/04/23 psyllium 1 packet PO DAILY 03/04/23 03/04/23 <Angelica Ruth PA-C - Last Filed: 01/28/24 16:25> Allergies/Adverse Reactions: Allergies Allergy/AdvReac Type Severity Reaction Status Date / Time codeine Allergy Nausea and Verified 01/17/23 12:41 Vomiting semaglutide [From Ozempic] Allergy Nausea and Verified 01/17/23 12:41 Vomiting gabapentin AdvReac Hallucinati Verified 01/17/23 12:41 ng <Angelica Ruth PA-C - Last Filed: 01/28/24 16:25> Review of Systems Review of Systems: All systems reviewed & are unremarkable except as noted in HPI and below <Orin Song MD - Last Filed: 01/28/24 21:43> [facility] Past Medical History Medical History: Medical History Anxiety Arthritis Bladder cancer (11/2019) Status post TURBT with pathology showing superficial papillary urothelial carcinoma, noninvasive and low-grade. Chronic back pain Chronic obstructive pulmonary disease Coronary artery disease Degenerative disc disease Depression with anxiety Hyperlipidemia Hypertension Insulin dependent type 2 diabetes mellitus Obstructive sleep apnea Intolerant to PAP therapy. Spinal stenosis Super obesity <Angelica Ruth PA-C - Last Filed: 01/28/24 16:25> Surgical History Surgical History: Surgical History History of appendectomy History of bilateral cataract extraction History of bladder suspension procedure (11/2019) History of cholecystectomy History of coronary artery stent placement (09/2018) History of elbow surgery History of hemorrhoidectomy History of hysterectomy (1969) History of knee surgery History of transurethral resection of bladder tumor (TURBT) <Angelica Ruth PA-C - Last Filed: 01/28/24 16:25> Family History Family History: Family History Mother Cerebrovascular accident <Angelica Ruth PA-C - Last Filed: 01/28/24 16:25> Social History Social History: Social History Social History: Surrogate medical decision maker: Jocelin Cueto, daughter. Code status: Full code. Smoking packs per day: 1 Smoking cigarettes per day: 20.0 Years smoked: 20 Smoking pack-years: 20.00 Smoking status: Former smoker Second hand tobacco smoke exposure: No Alcohol intake: never Substance use: never Substance use type: does not use Do You Feel Safe in your Home?: Yes Lack of Transportation: No Lack of Food: Never True Current Housing: I Have Housing Concerned About Future Housing: No Difficulty Paying Gas/Electric Bills: No Difficulty Paying for Meds: No Currently Unemployed: No Education: Don't Know Difficulty w/ Childcare or Family Care: No Additional living arrangements comments: [facility]. Spiritual care concerns: No <Angelica Ruth PA-C - Last Filed: 01/28/24 16:25> Exam Narrative: GENERAL: Nontoxic, no acute distress, pleasant cooperative HEAD: Normocephalic, atraumatic. EYES: PERRLA and EOMI. ENT: Nares clear, no rhinorrhea or epistaxis. Mucous membranes moist. NECK: Supple. CHEST: No respiratory distress. HEART: Regular rate and rhythm ABDOMEN: Soft, nontender, nondistended EXTREMITIES: Normal range of motion. No edema. SKIN: Warm, dry, no rash. NEURO: No focal deficits. Alert and oriented x3. PSYCH: Normal mood and affect. <Orin Song MD - Last Filed: 01/28/24 21:43> Course Vital Signs Vital signs: Vital Signs Temperature 98.0 F 01/28/24 16:21 Pulse Rate 60 01/28/24 16:21 Respiratory Rate 16 01/28/24 16:21 Blood Pressure 147/62 H 01/28/24 16:21 Pulse Oximetry 97 01/28/24 16:21 Oxygen Delivery Room Air 01/28/24 16:21 Temperature 98.7 F 01/28/24 20:16 Pulse Rate 56 L 01/28/24 20:16 Respiratory Rate 17 01/28/24 20:16 Blood Pressure 184/72 H 01/28/24 20:16 Pulse Oximetry 98 01/28/24 20:16 Oxygen Delivery Room Air 01/28/24 16:21 <Angelica Ruth PA-C - Last Filed: 01/28/24 16:25> Vital Signs Temperature 98.0 F 01/28/24 16:21 Pulse Rate 60 01/28/24 16:21 Respiratory Rate 16 01/28/24 16:21 Blood Pressure 147/62 H 01/28/24 16:21 Pulse Oximetry 97 01/28/24 16:21 Oxygen Delivery Room Air 01/28/24 16:21 Temperature 98.7 F 01/28/24 20:16 Pulse Rate 56 L 01/28/24 20:16 Respiratory Rate 17 01/28/24 20:16 Blood Pressure 184/72 H 01/28/24 20:16 Pulse Oximetry 98 01/28/24 20:16 Oxygen Delivery Room Air 01/28/24 16:21 <Orin Song MD - Last Filed: 01/28/24 21:43> MDM - Headache MDM Narrative Medical decision making narrative: 83-year-old female presenting with a headache for several hours. Vitals are stable. Exam remarkable for the above. She is neurologically intact. CT brain shows no acute abnormalities. Patient given migraine cocktail and reports improvement in her headache. She is currently resting comfortably. Feel she is safe for outpatient management. Discussed appropriate supportive care and return precautions given. Discharged in stable condition. <Orin Song MD - Last Filed: 01/28/24 21:43> Differential Diagnosis Differential diagnosis: Likely migraine, tension headache and headache <Orin Song MD - Last Filed: 01/28/24 21:43> Medical Records Attestation: I reviewed the patient's medical records. <Orin Song MD - Last Filed: 01/28/24 21:43> Imaging Data Radiologist's impression: ITS Impressions Head CT 01/28/24 17:16 IMPRESSION: 1. Normal aging brain. <Orin Song MD - Last Filed: 01/28/24 21:43> Critical Care Time Critical Care Time Critical Care Time: No <Orin Song MD - Last Filed: 01/28/24 21:43> Discharge Plan Discharge Clinical Impression: Migraine <Angelica Ruth PA-C - Last Filed: 01/28/24 16:25> Patient Disposition: [facility] <Angelica Ruth PA-C - Last Filed: 01/28/24 16:25> Condition: Stable <YONATHAN Garcia Last Filed: 01/28/24 16:25> Instructions: Antibiotic Form, Migraine Headache (ED) <Angelica Ruth PA-C - Last Filed: 01/28/24 16:25> Additional Instructions: CT scan today shows no acute abnormalities. We treated you for a migraine which is help with your symptoms. Please follow-up closely with your PCP. If your symptoms worsen or other concerning symptoms arise, please return to the ER. <Angelica Ruth PA-C - Last Filed: 01/28/24 16:25> Prescriptions: No Action atorvastatin 80 mg tablet 80 mg PO HS sertraline 100 mg tablet 100 mg PO QAM clopidogrel 75 mg tablet 75 mg PO HS Hold Instructions: Resume on 11/20/19. aspirin 81 mg tablet,delayed release (DR/EC) 81 mg PO QAM Hold Instructions: Resume on 11/20/19. furosemide 20 mg tablet 20 mg PO QAM Rx Instructions: every other day budesonide-formoterol [Symbicort] 160-4.5 mcg/actuation Hfa Aerosol Inhaler 2 puff INHALATION PRN PRN (Reason: Shortness Of Breath) Rx Instructions: twice a day methocarbamol 500 mg tablet 500 mg PO QID PRN (Reason: Muscle Spasm) carvedilol 6.25 mg tablet 6.25 mg PO BID isosorbide mononitrate 30 mg tablet extended release 24 hr 30 mg PO DAILY meclizine 12.5 mg tablet 12.5 mg PO TID tramadol 50 mg tablet 50 mg PO DAILY PRN (Reason: Pain) amlodipine 10 mg tablet 10 mg PO DAILY pantoprazole 40 mg tablet,delayed release (DR/EC) 40 mg PO BID bisacodyl [Dulcolax (bisacodyl)] 5 mg Tablet,Delayed Release (Dr/Ec) 10 mg PO DAILY PRN (Reason: Constipation) albuterol sulfate 90 mcg/actuation HFA aerosol inhaler 90 mcg INHALATION Q4H PRN (Reason: Shortness Of Breath Or Wheezing) Rx Instructions: 2 puff every 4 hours as needed oxybutynin chloride 5 mg tablet 5 mg PO DAILY ondansetron 4 mg tablet,disintegrating 4 mg PO Q8H PRN (Reason: Nausea) fluticasone propionate 50 mcg/actuation spray,suspension 50 mcg INTRANASAL DAILY Rx Instructions: two sprays loratadine 10 mg tablet 10 mg PO DAILY PRN (Reason: Allergy Symptoms) ezetimibe 10 mg tablet 10 mg DAILY insulin aspart U-100 [Novolog FlexPen U-100 Insulin] 100 unit/mL (3 mL) insulin pen 12 unit SUBCUT TID insulin glargine-yfgn 100 unit/mL solution 30 unit SUBCUT HS tamsulosin 0.4 mg Capsule 0.4 mg PO QAM Qty: 30 0RF ferrous sulfate 325 mg (65 mg iron) Tablet,Delayed Release (Dr/Ec) 325 mg PO DAILY Qty: 60 0RF Myrbetriq 25 mg tablet extended release 24 hr 25 mg PO DAILY Qty: 14 0RF psyllium husk [Metamucil] 0.4 gram capsule 0.4 g PO DAILY Qty: 14 0RF psyllium Packet 1 packet PO DAILY Rx Instructions: mix into at least 8 oz of water or juice before administering amoxicillin-pot clavulanate 875-125 mg tablet 1 tablet PO Q12H Qty: 8 0RF <Angelica Ruth PA-C - Last Filed: 01/28/24 16:25> Follow-up/Referrals: PHYSICIAN NOT ON STAFF,NONSTAFF [Primary Care Provider] - <Angelica Ruth PA-C - Last Filed: 01/28/24 16:25>
[2024-01-28 18:22] VITALS: BP 147/58; PULSE 87; RESP 18; TEMP 36.9; O2SAT 98
[2024-01-28] MEDS: MAGNESIUM SULF 2 GM/WATER 50ML 2 GM/50 ML BAG IVPB (19:20)
[2024-01-28] MEDS: KETOROLAC 15 MG/ML VIAL (*BKC) IV PUSH (19:21)
[2024-01-28] MEDS: SODIUM CHLORIDE 0.9% IV 500 ML 999 ML IV CONT (19:21)
[2024-01-28 20:16] VITALS: BP 184/72; PULSE 56; RESP 17; TEMP 37.1; O2SAT 98
[2024-01-28] MEDS: PROCHLORPERAZINE EDISYLATE 10 MG/2 ML VIAL IV PUSH (20:50)
[2024-01-28] MEDS: diphenhydrAMINE HCl INJ 50 MG/ML VIAL 25 MG IV PUSH (20:50)
[2024-01-28 21:45] VITALS: BP 171/79; PULSE 56; RESP 18; TEMP 36.9; O2SAT 97
--- NOTE | 2024-01-28 21:55 | PC.NURSE ---
patients family members contacted to let them know the patient was up for discharge and that the patient was requesting them for a ride home. daughter verbalized understanding and stated that the family would be coming to get the patient.
== END 2024-01-28 22:48 ==
PROVIDERS: Emergency Provider Emergency Medicine
DX: G43.909 Migraine, unspecified, not intractable, without status migrainosus (principal); I10 Essential (primary) hypertension; E78.5 Hyperlipidemia, unspecified; E11.9 Type 2 diabetes mellitus without complications; E66.01 Morbid (severe) obesity due to excess calories; Z68.42 Body mass index [BMI] 45.0-49.9, adult; J44.9 Chronic obstructive pulmonary disease, unspecified; G47.33 Obstructive sleep apnea (adult) (pediatric); Z95.5 Presence of coronary angioplasty implant and graft; Z85.51 Personal history of malignant neoplasm of bladder; Z98.42 Cataract extraction status, left eye; Z98.41 Cataract extraction status, right eye; Z90.49 Acquired absence of other specified parts of digestive tract; Z90.710 Acquired absence of both cervix and uterus; Z79.82 Long term (current) use of aspirin; Z79.02 Long term (current) use of antithrombotics/antiplatelets; Z79.899 Other long term (current) drug therapy; Z79.4 Long term (current) use of insulin
CPT/HCPCS: 70450; 96365; 96366; 96375; 99284; J0780; J1200; J1885; J3475; J7040